=== PATIENT | female | born 1940 | race Caucasian/White ===

== ENCOUNTER → 2020-11-15 13:01 | Outpatient (BNVA) | payer MEDICARE, SELFPAY | PROVIDERS: PCP Physician Assistant Medical; Visit Provider Internal Medicine | DX: I11.0 Hypertensive heart disease with heart failure (principal); I50.32 Chronic diastolic (congestive) heart failure; I45.10 Unspecified right bundle-branch block; G47.33 Obstructive sleep apnea (adult) (pediatric) | CPT/HCPCS: 93005; 99202 ==

== ENCOUNTER → 2021-02-15 13:09 | Outpatient (REF) | payer MEDICARE, SELFPAY ==
--- NOTE | 2021-02-15 13:12 | CA_ITS ---
Transthoracic Echocardiogram Patient (Last, First, Middle): Anna Mallory M Gender: Female Date of : 1940 Age: 81 Procedure Date: 02/15/2021 Procedure Type: Transthoracic Echocardiogram Location: OP Height: 160.02 cm Weight: 88.45 kg BSA: 1.91 m2 Heart Rate: bpm BP: 130 / 70 mmHg [employer] Metal: EN Referring MD: Hemanth Herring MD Symptoms: I50.32 - Chronic diastolic (congestive) heart failure Study Quality: Fair ECG Rhythm: Sinus Conclusions: - The left ventricular systolic function is normal. The visually estimated ejection fraction is between 65-70%. - No obvious valvular pathology seen on this study. Findings Left Ventricle Normal left ventricular cavity size. There is normal left ventricular wall thickness. The left ventricular systolic function is normal. The visually estimated ejection fraction is between 65-70%. There is no evidence of regional wall motion abnormalities. E/E prime ratio is <8, consistent with normal filling pressures. Evidence suggests grade I (mild) diastolic dysfunction. Right Ventricle Normal right ventricular cavity size and systolic function. Atria Both atria are normal in size. Aortic Valve There is a normal trileaflet aortic valve. There is no aortic valve stenosis. There is no aortic valve regurgitation. Mitral Valve The mitral valve appears normal. There is trace mitral valve regurgitation. There is no mitral valve stenosis. Pulmonic Valve The pulmonic valve was not well visualized. Tricuspid Valve Normal tricuspid valve structure. There is trace tricuspid valve regurgitation. The pulmonary artery systolic pressure is normal. Great Vessels The aorta was not well visualized. The aortic annulus is normal in size. Venous The inferior vena cava is normal in size and collapses greater than 50% with inspiration. Pericardium/Pleural There is no evidence of pericardial effusion. Prior Study Comparison No prior study available for comparison. Recommendations, Care & Conclusions No obvious valvular pathology seen on this study. Measurements 2D Linear Measurements IVSd: 0.89 0.6-0.9/0.6-1.0 cm LVIDd: 4.21 3.9-5.3/4.2-5.9 cm LVIDd Index: 2.20 2.4-3.2/2.2-3.1 cm/m2 LVIDs: 3.05 2.0-3.6 cm LVPWd: 0.97 0.7-1.1 cm Ao Root: 3.10 2.1-3.5 cm LA Diam: 3.00 2.7-3.8/3.0-4.0 cm LAIDs Index: 1.57 1.5-2.3 cm/m2 LV Mass: 154.88 67-162/88-224 g LV Mass Index: 81.09 43-95/49-115 g/m2 LVOT Diam: 2.00 3.0+(-)1.3 cm 2D Systolic Function EF 4C: 69.70 >55% EF 2C: 51.10 >55% EF BiP: 60.40 >55% Mitral Valve MV Pk E: 0.50 MV PK A: 0.86 MV Decel Time: 301.00 E/A: 0.60 E'Lateral: 8.49 E'Medial: 7.83 E/E' Med: 6.40 E/E' Lat: 5.90 PHT: 88.00 MVA PHT: 2.50 Decel Bucks: 1.67 Aortic Valve AoV Pk Raymond: 1.26 AoV Mn Raymond: 0.86 AoV VTI: 0.22 AoV Pk Grad: 6.00 Aov Mn Grad: 3.00 ASTER Cont.VTI: 3.57 LVOT LVOT Pk Raymond: 1.27 LVOT Mn Raymond: 0.80 LVOT VTI: 0.25 LVOT Pk Grad: 6.00 LVOT Mn Grad: 3.00 LVOT Diam: 2.00 LVOT Area: 3.14 Diastolic Function MV Pk E: 0.50 MV Pk A: 0.86 E/A: 0.60 E'Medial: 7.83 E/E' Med: 6.40 E' Laterial: 8.49 E/E' Lat: 5.90 Right Ventricle TAPSE (mm): 2.20 TVS' Raymond: 10.40 Tricuspid Valve TR Pk Raymond: 1.76 TR Pk Grad: 12.00 RA Press: 3.00 RVSP: 15.00 Great Vessels Aorta Ao Root-2D: 3.10 2.0-3.7 cm Ao Asc: 3.20 2.1-3.4 cm Ao Arch: 3.00 Updated in Other Vendor System with Status of Final Hemanth Herring MD electronically signed on 02/16/2021 11:46:31 AM with status of Final
== END ==
LOC: HO.CARD 13:09
PROVIDERS: PCP Physician Assistant Medical; Visit Provider Internal Medicine
DX: I50.32 Chronic diastolic (congestive) heart failure (principal)
CPT/HCPCS: 93306

== ENCOUNTER → 2021-03-05 15:01 | Outpatient (BNVA) | payer MEDICARE, SELFPAY | PROVIDERS: PCP Physician Assistant Medical; Visit Provider Internal Medicine | DX: I11.0 Hypertensive heart disease with heart failure (principal); I50.32 Chronic diastolic (congestive) heart failure; I45.10 Unspecified right bundle-branch block; G47.33 Obstructive sleep apnea (adult) (pediatric) | CPT/HCPCS: 99212 ==

== ENCOUNTER 2021-06-27 19:44 | Emergency (ER) | payer MEDICARE, SELFPAY ==
--- NOTE | ~2021-06-27 | XR_ITS ---
EXAMINATION: PORTABLE CHEST 1 VIEW CLINICAL INFORMATION: dyspnea . COMPARISON: 11/03/2016 CT scan. TECHNIQUE: Portable frontal view of the chest was obtained. FINDINGS: The lungs are well expanded. Mild peribronchial cuffing bilaterally but no superimposed focal infiltrate, effusion, edema, or pneumothorax. Cardiac and mediastinal silhouettes are within normal limits for technique. No acute bony abnormality seen. Degenerative changes in the right greater than left shoulders degenerative changes in the spine. XR/XR chest 1V IMPRESSION: Mild peribronchial cuffing could be seen with underlying reactive or small airways disease but no focal airspace process noted otherwise.
--- NOTE | 2021-06-27 21:11 | ECG_ITS ---
Test Reason : BRONCHITIS Blood Pressure : / mmHG Vent. Rate : 097 BPM Atrial Rate : 097 BPM P-R Int : 194 ms QRS Dur : 134 ms QT Int : 410 ms P-R-T Axes : 040 035 011 degrees QTc Int : 520 ms Normal sinus rhythm Right bundle branch block Abnormal ECG When compared with ECG of 02-NOV-2016 23:42, Right bundle branch block is now Present Referred By: Generic ED Physician Electronically Signed By:Cayetano Pfeiffer
[2021-06-27 21:15] VITALS: BP 152/93; PULSE 106; RESP 19; TEMP 36.4; O2SAT 98; BMI 32.5
[2021-06-27 22:22] LABS: MANUAL DIFF FLAG NO
[2021-06-27 22:26] LABS: Basophils Percent Auto 0.6 % (0-2); Eosinophils Absolute Auto 0.3 X10*3/uL (0.0-0.4); Hemoglobin 13.2 g/dl (12.0-16.0); Imm Gran Abs Auto 0.02 X10*3/uL (0.00-0.03); Imm Gran Pct Auto 0.3 % (0.0-0.4); Lymphocytes Absolute Auto 1.1 X10*3/uL (1.2-4.9); Lymphocytes Percent Auto 15.3 % (20-40); Mean Corpuscular HGB Conc 32.2 g/dl (31.0-35.0); Mean Corpuscular Hemoglobin 30.8 pg (27.0-33.0); Mean Corpuscular Volume 95.8 fL (80.0-98.0); Mean Platelet Volume 11.6 fL (9.4-12.3); Monocytes Absolute Auto 0.7 X10*3/uL (0.1-1.2); Monocytes Percent Auto 8.9 % (2-11); Neutrophils Absolute Auto 5.2 x10*3/uL (2.0-8.3); Neutrophils Percent Auto 70.9 % (45-73); Platelet Count 206 X10*3/uL (160-400); Red Blood Count 4.28 X10*6/uL (4.20-5.50); Red Cell Distribution Width 13.1 % (11.0-16.0); White Blood Count 7.3 X10*3/uL (4.8-10.8)
--- NOTE | 2021-06-27 22:30 | ED.SOB ---
HPI - SOB/Dyspnea General Chief Complaint: Dyspnea Stated Complaint: bronchitis Time Seen by Provider: 06/27/21 22:26 Source: patient Mode of arrival: ambulatory Limitations: no limitations History of Present Illness HPI Narrative: 81-year-old female presents with complaints of a brief episode of shortness of breath. Patient states that the feeling is consistent with chronic bronchitis. At this time she states that she feels well, and that the symptoms have resolved. MD elicited complaint: shortness of breath Pertinent past history: congestive heart failure Onset (ago): minute(s) (Several minutes earlier today) Timing: now resolved Severity: mild Exacerbating factors: nothing Relieving factors: nothing Known history of: congestive heart failure Associated symptoms: denies other symptoms Treatment prior to arrival: none Related Data Home Medications Medication Instructions Recorded Confirmed amlodipine 5 mg tablet 5 mg PO DAILY tab 11/15/20 03/05/21 duloxetine 60 mg capsule,delayed 60 mg PO DAILY cap 11/15/20 03/05/21 release furosemide 40 mg tablet 40 mg PO DAILY tab 11/15/20 03/05/21 lisinopril 20 mg tablet 20 mg PO DAILY tab 11/15/20 03/05/21 pantoprazole 40 mg tablet,delayed 40 mg PO DAILY tab 11/15/20 03/05/21 release potassium chloride 20 mEq 20 meq PO DAILY tab 11/15/20 03/05/21 tablet,extended release(part/cryst) pravastatin 40 mg tablet 40 mg PO DAILY tab 11/15/20 03/05/21 Previous Rx's Medication Instructions Recorded doxycycline monohydrate 100 mg 100 mg PO Q12H 7 Days #14 cap 06/28/21 capsule Allergies Allergy/AdvReac Type Severity Reaction Status Date / Time latex [Latex] Allergy Mild RASH Verified 06/27/21 21:31 celecoxib [From CELEBREX] Allergy Unknown RASH Verified 06/27/21 21:31 Garden And Derivatives Allergy Unknown RASH ON Verified 06/27/21 21:31 FACE egg Allergy Unknown RASH FROM Verified 06/27/21 21:31 EGG WHITES gabapentin [GABAPENTIN] Allergy Unknown RASH Verified 06/27/21 21:31 lactose [LACTOSE] Allergy Unknown INTOLERANT Verified 06/27/21 21:31 peas Allergy Unknown FROM Verified 06/27/21 21:31 TESTING RESULT vancomycin [VANCOMYCIN] Allergy Unknown UNKNOWN Verified 06/27/21 21:31 hydrocodone [HYDROCODONE] AdvReac Unknown ABDOMINAL Verified 06/27/21 21:31 PAIN saccharin [SACCHARIN] AdvReac Unknown HEADACHE Verified 06/27/21 21:31 JEWELRY Allergy Unknown RASH Uncoded 06/27/21 21:31 PLASTIC Allergy Unknown RASH Uncoded 06/27/21 21:31 Review of Systems Review of Systems: Constitutional: No Fever, No Chills ENT/Mouth: No sore throat, No Rhinorrhea, No Swallowing Difficulty Eyes: No Eye Pain, No Swelling, No Redness Cardiovascular: No Chest Pain, positive SOB, No Orthopnea, positive Edema Respiratory: No Cough, No Sputum, No Wheezing, positive dyspnea Gastrointestinal: No Nausea, No Vomiting, No Diarrhea, No abdominal Pain, No Hematochezia, No Melena Genitourinary: No Dysuria, No Urinary Frequency, No Hematuria Musculoskeletal: No joint pain, No Myalgias Skin: No Skin Lesions, No rash Neuro: No Weakness, No Numbness, No Dizziness, No Headache Psych: No Anxiety/Panic, No Depression Heme/Lymph: No Bruising, No Lymphadenopathy Endocrine: No Polyuria, No Polydipsia Yes all other systems are reviewed and are negative [facility] Past Medical History Attestation statement: The following information was validated with the patient. Source: old records reviewed Medical History Chronic heart failure with preserved ejection fraction (HFpEF) Essential hypertension ZAK (obstructive sleep apnea) RBBB Surgical History No pertinent past surgical history Family History Family History Father No problems noted. Mother No problems noted. Social History Social History Patient Tobacco Use Status: Never used Tobacco Advance Directives: No Physical Exam Vital Signs: Vital Signs: Last Vital Signs Temp 98.4 F 06/28/21 01:45 Pulse 81 06/28/21 01:45 Resp 14 06/28/21 01:45 BP 146/81 H 06/28/21 01:45 Pulse Ox 97 06/28/21 01:45 BMI result Body Mass Index 32.5 Appearance: Alert. Oriented X3. No acute distress. Eyes: Pupils equal, round and reactive to light. ENT: Pharynx normal. Neck: Normal inspection. Neck supple. CVS: Tachycardic heart rate and rhythm. Pulses normal. Respiratory: No respiratory distress. Breath sounds normal. Abdomen: Soft and nontender. Skin: Skin warm and dry. Normal skin color. Normal skin turgor. Extremities: +2 pitting bilateral lower extremity edema. Gait well-balanced well coordinated. Neuro: No motor deficit. No sensory deficit. Cranial nerves 2-12 intact. Course Course Course Narrative: 81-year-old presents with an episode of shortness of breath, felt like she had severe congestion and had a difficult time breathing. She does not report any sick contacts or any other concerning symptoms. States that her symptoms have resolved during her prolonged time in the waiting room. EKG noted prolonged QTc interval while patient was in the waiting room of 520. Prior EKGs compared, reviewed by Dr. Blackwell. No indication of ischemic event at this time. Patient is afebrile, asymptomatic at this time. Will give magnesium, chest x-ray shows bronchial cupping most likely consistent bronchitis. Urinalysis pending. 01:30 urinalysis is negative. Will treat for bronchitis with doxycycline.Patient verbalized understanding of and agrees to plan of care to discharge home. Verbalized understanding of signs and symptoms indicating need for emergent intervention MDM - SOB/Dyspnea Differential Diagnosis Differential diagnosis: Likely acute exacerbation of chronic obstructive airways disease, congestive heart failure, pneumonia, asthma with exacerbation and pleural effusion Medical Records Attestation: I reviewed the patient's medical records. Lab Data Attestation: I reviewed the patient's lab results. Result diagrams: 06/27/21 22:10 06/27/21 22:10 Labs: Lab Results 06/27/21 06/27/21 06/27/21 Range/Units 22:10 22:10 22:10 WBC 7.3 (4.8-10.8) X10*3/uL RBC 4.28 (4.20-5.50) X10*6/uL Hgb 13.2 (12.0-16.0) g/dl Hct 41.0 (37.0-47.0) % MCV 95.8 (80.0-98.0) fL MCH 30.8 (27.0-33.0) pg MCHC 32.2 (31.0-35.0) g/dl RDW 13.1 (11.0-16.0) % Plt Count 206 (160-400) X10*3/uL MPV 11.6 (9.4-12.3) fL Immature Gran % (Auto) 0.3 (0.0-0.4) % Neut % (Auto) 70.9 (45-73) % Lymph % (Auto) 15.3 L (20-40) % [place] % (Auto) 8.9 (2-11) % Eos % (Auto) 4.0 (0-4) % Baso % (Auto) 0.6 (0-2) % Lymph # (Auto) 1.1 L (1.2-4.9) X10*3/uL [place] # (Auto) 0.7 (0.1-1.2) X10*3/uL Eos # (Auto) 0.3 (0.0-0.4) X10*3/uL Baso # (Auto) 0.0 (0.0-0.2) X10*3/uL Abs Immat Gran (auto) 0.02 (0.00-0.03) X10*3/uL Absolute Neuts (auto) 5.2 (2.0-8.3) x10*3/uL Absolute Nucleated RBC 0.000 (0.0-0.012) X10*3/uL Nucleated RBC % (auto) 0.0 (0.0-0.2) /100WBC Sodium 142 (135-145) mmol/L Potassium 3.9 (3.3-5.1) mmol/L Chloride 104 (96-108) mmol/L Carbon Dioxide 29 (22-29) mmol/L Anion Gap 13 (12-20) BUN 15 (9-16) mg/dL Creatinine 1.29 (0.5-1.4) mg/dL Estim Creat Clear Calc 41.7 Estimated GFR 40 Random Glucose 101 (60-115) mg/dL Lactic Acid (0.5-2.0) mmol/L Calcium 9.5 (8.4-10.2) mg/dL Magnesium 2.3 (1.6-2.6) mg/dL Troponin I High Sens 4.3 (<3.5-17.0) ng/L B-Natriuretic Peptide 46 (<100) pg/mL Urine Color Urine Appearance Urine pH (5.0-8.0) Ur Specific [place] (1.005-1.025) Urine Protein (NEG-TRACE) MG/DL Urine Glucose (UA) (NEG) MG/DL Urine Ketones (NEG) MG/DL Urine Blood (NEG) Urine Nitrite (NEG) Ur Leukocyte Esterase (NEG) 06/27/21 06/28/21 Range/Units 23:11 01:07 WBC (4.8-10.8) X10*3/uL RBC (4.20-5.50) X10*6/uL Hgb (12.0-16.0) g/dl Hct (37.0-47.0) % MCV (80.0-98.0) fL MCH (27.0-33.0) pg MCHC (31.0-35.0) g/dl RDW (11.0-16.0) % Plt Count (160-400) X10*3/uL MPV (9.4-12.3) fL Immature Gran % (Auto) (0.0-0.4) % Neut % (Auto) (45-73) % Lymph % (Auto) (20-40) % [place] % (Auto) (2-11) % Eos % (Auto) (0-4) % Baso % (Auto) (0-2) % Lymph # (Auto) (1.2-4.9) X10*3/uL [place] # (Auto) (0.1-1.2) X10*3/uL Eos # (Auto) (0.0-0.4) X10*3/uL Baso # (Auto) (0.0-0.2) X10*3/uL Abs Immat Gran (auto) (0.00-0.03) X10*3/uL Absolute Neuts (auto) (2.0-8.3) x10*3/uL Absolute Nucleated RBC (0.0-0.012) X10*3/uL Nucleated RBC % (auto) (0.0-0.2) /100WBC Sodium (135-145) mmol/L Potassium (3.3-5.1) mmol/L Chloride (96-108) mmol/L Carbon Dioxide (22-29) mmol/L Anion Gap (12-20) BUN (9-16) mg/dL Creatinine (0.5-1.4) mg/dL Estim Creat Clear Calc Estimated GFR Random Glucose (60-115) mg/dL Lactic Acid 0.6 (0.5-2.0) mmol/L Calcium (8.4-10.2) mg/dL Magnesium (1.6-2.6) mg/dL Troponin I High Sens (<3.5-17.0) ng/L B-Natriuretic Peptide (<100) pg/mL Urine Color YELLOW Urine Appearance HAZY Urine pH 6.5 (5.0-8.0) Ur Specific [place] 1.015 (1.005-1.025) Urine Protein NEG (NEG-TRACE) MG/DL Urine Glucose (UA) NEG (NEG) MG/DL Urine Ketones NEG (NEG) MG/DL Urine Blood NEG (NEG) Urine Nitrite NEG (NEG) Ur Leukocyte Esterase NEG (NEG) Imaging Data Chest x-ray: Attestation: I personally reviewed and interpreted this imaging study as follows: Radiologist's impression: EXAMINATION: PORTABLE CHEST 1 VIEW CLINICAL INFORMATION: dyspnea . COMPARISON: 11/03/2016 CT scan. TECHNIQUE: Portable frontal view of the chest was obtained. FINDINGS: The lungs are well expanded. Mild peribronchial cuffing bilaterally but no superimposed focal infiltrate, effusion, edema, or pneumothorax. Cardiac and mediastinal silhouettes are within normal limits for technique. No acute bony abnormality seen. Degenerative changes in the right greater than left shoulders degenerative changes in the spine. XR/XR chest 1V IMPRESSION: Mild peribronchial cuffing could be seen with underlying reactive or small airways disease but no focal airspace process noted otherwise. ? ECG Data Attestation: I personally reviewed and interpreted this ECG as follows: ECG interpretation date: 06/27/21 ECG interpretation time: 21:55 Prior ECG tracings: available for review Interpretation: Vent. rate 97 BPM MT interval 194 ms QRS duration 134 ms QT/QTc 410/520 ms P-R-T axes 40 35 11 Normal sinus rhythm Right bundle branch block Abnormal ECG When compared with ECG of 02-NOV-2016 23:42, Right bundle branch block is now Present Scores Heart Score History: -0- slightly suspicious ECG: -1- non specific repolarization disturbance Age: -2- > or = 65 Risk factory: -1- 1 or 2 risk factors Troponin: -0- < or = normal limit Score: 4 Risk: 16.6% Wells PE Heart rate > 100 p/min: 1.5 Score: 1.5 2-tier Risk: unlikely risk (5%) 3-tier Risk: low risk (3.4%) Discharge Plan Discharge Clinical Impression: Bronchitis Patient Disposition: Home, Self-Care Instructions: Acute Bronchitis (ED) Additional Instructions: You were evaluated for shortness of breath. X-rays indicate bronchitis. Please take doxycycline 100 mg twice a day for the next 7 days. Thank you for choosing this emergency department for evaluation. Please follow-up with primary care physician as needed. Return to the emergency department for any new, concerning, or worsening symptoms. Prescriptions: New doxycycline monohydrate 100 mg capsule 100 mg PO Q12H 7 Days Qty: 14 0RF No Action potassium chloride 20 mEq tablet,ER particles/crystals 20 meq PO DAILY 0RF furosemide 40 mg tablet 40 mg PO DAILY 0RF duloxetine 60 mg capsule,delayed release(DR/EC) 60 mg PO DAILY 0RF pantoprazole 40 mg tablet,delayed release (DR/EC) 40 mg PO DAILY 0RF amlodipine 5 mg tablet 5 mg PO DAILY 0RF pravastatin 40 mg tablet 40 mg PO DAILY 0RF lisinopril 20 mg tablet 20 mg PO DAILY 0RF Interventions: ED Discharge Assessment Last Done: 06/28/21 01:47 Discharge Date/Time: 06/28/21 01:49
[2021-06-27 22:35] VITALS: BP 174/98; PULSE 102; RESP 15; O2SAT 97
[2021-06-27 22:43] LABS: Anion Gap 13 (12-20); Blood Urea Nitrogen 15 mg/dL (9-16); Calcium 9.5 mg/dL (8.4-10.2); Carbon Dioxide 29 mmol/L (22-29); Chloride 104 mmol/L (96-108); Creatinine Clr Calc Pharmacy 41.7; Estimated Glomerular Filt Rate 40; Glucose Random 101 mg/dL (60-115); Magnesium 2.3 mg/dL (1.6-2.6); Potassium 3.9 mmol/L (3.3-5.1); Sodium 142 mmol/L (135-145)
[2021-06-27 23:21] LABS: B Type Natriuretic Peptide 46 pg/mL (<100); Troponin-I High Sensitivity 4.3 ng/L (<3.5-17.0)
[2021-06-27 23:27] LABS: Lactic Acid 0.6 mmol/L (0.5-2.0)
[2021-06-27] MEDS: Magnesium Sulfate/H2O 2 GM/50 ML PIGGYBACK IV (23:28)
[2021-06-28] MEDS: Doxycycline Hyclate 100 MG in 0.9 % Sodium Chloride 250 ML 166.67 MG IV (00:09)
[2021-06-28 00:14] VITALS: BP 150/73; PULSE 95; RESP 12; O2SAT 96
[2021-06-28 01:27] LABS: Appearance Urine HAZY; Color Urine YELLOW; Glucose Urine UA NEG (NEG); Leukocyte Esterase Urine NEG (NEG); Nitrite Urine NEG (NEG); PH 6.5 (5.0-8.0); Specific Gravity - Urine 1.015 (1.005-1.025); Urine Blood NEG (NEG); Urine Ketones NEG (NEG); Urine Protein NEG (NEG-TRACE)
[2021-06-28 01:45] VITALS: BP 146/81; PULSE 81; RESP 14; TEMP 36.9; O2SAT 97
== END 2021-06-28 01:49 | disposition home or self-care (01) ==
PROVIDERS: Nurse Practitioner Family; Emergency Provider Student in an Organized Health Care Education/Training Program
DX: J40 Bronchitis, not specified as acute or chronic (principal); R06.00 Dyspnea, unspecified; R06.02 Shortness of breath; Z79.899 Other long term (current) drug therapy; Z20.822 Contact with and (suspected) exposure to COVID-19
CPT/HCPCS: 36415; 71045; 80048; 81003; 83605; 83735; 83880; 84484; 85025; 87040; 93005; 96365; 96366; 96375; 99284; J3475

== ENCOUNTER → 2022-03-06 15:16 | Outpatient (BNVA) | payer MEDICARE, SELFPAY | PROVIDERS: Visit Provider Internal Medicine | DX: I11.0 Hypertensive heart disease with heart failure (principal); I50.32 Chronic diastolic (congestive) heart failure; I45.10 Unspecified right bundle-branch block; G47.33 Obstructive sleep apnea (adult) (pediatric); Z79.899 Other long term (current) drug therapy | CPT/HCPCS: 93005; 99212 ==

== ENCOUNTER 2022-08-17 16:36 | Emergency (ER) | payer MEDICARE, SELFPAY ==
--- NOTE | ~2022-08-17 | XR_ITS ---
Examination: XR knee LT 2V, XR knee RT 2V, XR hip RT w PEL1V Indication: fall, tenderness Comparison: No pertinent prior studies are currently available for comparison. Technique: Frontal view the pelvis with coned frontal and lateral views of the right hip with 2 views of the right knee and 2 views of the left knee. Findings: Pelvis/right hip: Patient is status post bilateral total hip arthroplasties. Hardware appears to be intact with no evidence for periprosthetic fracture or obvious loosening. Degenerative changes in the pubic symphysis. Prominent vascular calcification. Right knee: Small joint effusion. Bones are normal anatomic alignment with no acute fracture or dislocation. The patient is status post right total knee arthroplasty with no evidence for periprosthetic fracture or hardware failure. Left knee: Patient is status post left total knee arthroplasty. No evidence for hardware failure or periprosthetic fracture. Small joint effusion suspected. XR/XR knee RT 2V Impression: Chronic appearing and postoperative changes as described. I do not appreciate any acute fracture or dislocation.
--- NOTE | ~2022-08-17 | XR_ITS ---
Examination: XR knee LT 2V, XR knee RT 2V, XR hip RT w PEL1V Indication: fall, tenderness Comparison: No pertinent prior studies are currently available for comparison. Technique: Frontal view the pelvis with coned frontal and lateral views of the right hip with 2 views of the right knee and 2 views of the left knee. Findings: Pelvis/right hip: Patient is status post bilateral total hip arthroplasties. Hardware appears to be intact with no evidence for periprosthetic fracture or obvious loosening. Degenerative changes in the pubic symphysis. Prominent vascular calcification. Right knee: Small joint effusion. Bones are normal anatomic alignment with no acute fracture or dislocation. The patient is status post right total knee arthroplasty with no evidence for periprosthetic fracture or hardware failure. Left knee: Patient is status post left total knee arthroplasty. No evidence for hardware failure or periprosthetic fracture. Small joint effusion suspected. XR/XR hip RT w PEL1V Impression: Chronic appearing and postoperative changes as described. I do not appreciate any acute fracture or dislocation.
--- NOTE | ~2022-08-17 | XR_ITS ---
Examination: XR knee LT 2V, XR knee RT 2V, XR hip RT w PEL1V Indication: fall, tenderness Comparison: No pertinent prior studies are currently available for comparison. Technique: Frontal view the pelvis with coned frontal and lateral views of the right hip with 2 views of the right knee and 2 views of the left knee. Findings: Pelvis/right hip: Patient is status post bilateral total hip arthroplasties. Hardware appears to be intact with no evidence for periprosthetic fracture or obvious loosening. Degenerative changes in the pubic symphysis. Prominent vascular calcification. Right knee: Small joint effusion. Bones are normal anatomic alignment with no acute fracture or dislocation. The patient is status post right total knee arthroplasty with no evidence for periprosthetic fracture or hardware failure. Left knee: Patient is status post left total knee arthroplasty. No evidence for hardware failure or periprosthetic fracture. Small joint effusion suspected. XR/XR knee LT 2V Impression: Chronic appearing and postoperative changes as described. I do not appreciate any acute fracture or dislocation.
--- NOTE | ~2022-08-17 | CT_ITS ---
EXAMINATION: CT HEAD WITHOUT CONTRAST CT CERVICAL SPINE WITHOUT CONTRAST CLINICAL INFORMATION: Status post fall. Head strike. COMPARISON: None TECHNIQUE: Contiguous axial images are obtained from the skull base to the vertex without intravenous contrast administration. Multidetector volumetric CT imaging of the cervical spine is acquired without intravenous contrast administration. Postprocessing is performed at a dedicated workstation. Multiplanar reformatted images are submitted. This CT scan was performed using dose optimization techniques as appropriate to a performed exam including the following: *Automated exposure control *Adjustment of mA and/or kV according to patient size (this includes techniques or standardized protocols for targeted exams were dose is matched to indication/reason for exam; i.e. extremities or head) *Use of iterative reconstruction technique. DLP: 1358 mGy-cm. FINDINGS: CT HEAD: Subgaleal hematoma is noted over the high left anterior lateral frontal calvarium. There is no evidence of acute intracranial hemorrhage, midline shift, mass effect, acute territorial edematous infarction or abnormal extra-axial fluid collection. Moderate cerebral volume loss is noted with proportionate dilatation of the ventricles and cortical sulci. Bilateral periventricular moderate patchy white matter low-attenuation changes are seen, likely of chronic microangiopathy. Osseous calvarium is intact. The sinuses are well-aerated. Bilateral mastoid air cells and middle ear cavities are well-aerated. The patient is status post bilateral lens extraction. Calcific atherosclerosis of the internal carotid arteries. CT CERVICAL SPINE: The vertebral body heights are maintained. Atlantoaxial and atlantooccipital alignments are maintained. Posterior elements are intact and in normal alignment. There is minimal grade 1 anterolisthesis of C2 over C3 and of C3 over C4. Minimal grade 1 retrolisthesis of C5 over C6. Minimal grade 1 anterolisthesis of C7 over T1. Severe disc space narrowing is noted at C4-C5, C5-C6 and C6-C7 with endplate marginal osteophytes. Moderate to severe bilateral neural foraminal stenosis is noted from C4 to C7. Moderate disc space narrowing at C3-C4. No evidence of tight central canal stenosis. Mild central canal stenosis from C5 to C7. The airway is patent. There is no evidence of prevertebral soft tissue swelling. No focal thyroid nodule. Nonspecific mild groundglass changes at the lung apices. CT/CT cervical spine wo IV con IMPRESSION: 1. No evidence of acute intracranial abnormality. Specifically, there is no evidence of acute intracranial hemorrhage or acute fracture of the osseous calvarium. 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 Left anterior lateral frontal calvarium subgaleal hematoma. 2. No evidence of acute fracture or traumatic subluxation in the cervical spine. Cervical spondylosis.
[2022-08-17 16:54] VITALS: BP 137/76; BP 176/92; PULSE 103; PULSE 84; RESP 20; TEMP 36.6; O2SAT 96; O2SAT 98; BMI 41.9
--- NOTE | 2022-08-17 17:03 | ED.GENADULT ---
HPI - General Adult General Chief complaint: Fall Stated complaint: L FOREHEAD BRUISE S/P TRIP/FALL PER EMS Time Seen by Provider: 08/17/22 17:02 Source: patient and EMS Mode of arrival: EMS Limitations: no limitations History of Present Illness HPI narrative: Patient is an 82-year-old female with history of ZAK, RBBB, HF with preserved ejection fraction, HTN presenting with head and right hip pain as well as bilateral knee pain after a fall from standing. Patient was home alone, states that she was feeling nauseous, so went into the kitchen to eat cereal. She states as she turned to leave the room my body turned but my legs didn't move. She fell to her knees, then hit head on the hardwood floor. She does not believe she lost consciousness, remembers all events. She reports tenderness to forehead, continued nausea. Denies neck or back pain, is in a c-collar from EMS. Reports right hip pain and bilateral knee pain both worse with palpation. Denies abdominal pain, vomiting, diarrhea or constipation. Reports that she otherwise felt fine this morning prior to fall. MD complaint: head injury Onset (ago): hour(s) Location: head and lower extremity Severity: severe Pain Consistency: intermittent Relieving factors: rest Exacerbating factors: movement Associated symptoms: nausea/vomiting (reports nausea, denies vomiting) Treatments prior to arrival: none Related Data Home Medications Medication Instructions Recorded Confirmed amlodipine 5 mg tablet 5 mg PO DAILY 11/15/20 03/06/22 duloxetine 60 mg capsule,delayed 60 mg PO DAILY 11/15/20 03/06/22 release lisinopril 20 mg tablet 20 mg PO DAILY 11/15/20 03/06/22 pantoprazole 40 mg tablet,delayed 40 mg PO DAILY 11/15/20 03/06/22 release potassium chloride 20 mEq 20 meq PO DAILY 11/15/20 03/06/22 tablet,extended release(part/cryst) pravastatin 40 mg tablet 40 mg PO DAILY 11/15/20 03/06/22 ciclopirox 8 % topical solution topical 03/06/22 03/06/22 nystatin 100,000 unit/gram topical topical 03/06/22 03/06/22 powder triamcinolone acetonide 0.1 % topical 03/06/22 03/06/22 topical ointment Previous Rx's Medication Instructions Recorded furosemide 40 mg tablet 40 mg PO DAILY 90 days #90 tabs 03/06/22 Allergies Allergy/AdvReac Type Severity Reaction Status Date / Time latex [Latex] Allergy Mild RASH Verified 03/06/22 15:23 celecoxib [From CELEBREX] Allergy Unknown RASH Verified 03/06/22 15:23 [place] And Derivatives Allergy Unknown RASH ON Verified 03/06/22 15:23 FACE egg Allergy Unknown RASH FROM Verified 03/06/22 15:23 EGG WHITES gabapentin [GABAPENTIN] Allergy Unknown RASH Verified 03/06/22 15:23 lactose [LACTOSE] Allergy Unknown INTOLERANT Verified 03/06/22 15:23 peas Allergy Unknown FROM Verified 03/06/22 15:23 TESTING RESULT vancomycin [VANCOMYCIN] Allergy Unknown UNKNOWN Verified 03/06/22 15:23 hydrocodone [HYDROCODONE] AdvReac Unknown ABDOMINAL Verified 03/06/22 15:23 PAIN saccharin [SACCHARIN] AdvReac Unknown HEADACHE Verified 03/06/22 15:23 JEWELRY Allergy Unknown RASH Uncoded 03/06/22 15:23 PLASTIC Allergy Unknown RASH Uncoded 03/06/22 15:23 Review of Systems Review of Systems: As per HPI Yes all other systems are reviewed and are negative Constitutional: Constitutional: Reports as per HPI PMFSH Past Medical History Medical History Chronic heart failure with preserved ejection fraction (HFpEF) Essential hypertension ZAK (obstructive sleep apnea) RBBB Surgical History No pertinent past surgical history Family History Family History Father No problems noted. Mother No problems noted. Social History Social History (Updated 03/06/22 @ 15:26 by JOSHUA Millan) Alcohol intake: never Patient Tobacco Use Status: Never used Tobacco Smoked in Last 30 Days: No Use of substances other than those prescribed or required for medical reasons: No Advance Directives: No Advance Directives Information Provided: No Physical Exam ED Vital Signs: Vital Signs - 24 hr 08/17/22 16:54 08/17/22 20:34 Temperature 97.8 F Pulse Rate 84 90 Respiratory Rate 20 16 Blood Pressure 176/92 H Pulse Oximetry 96 98 Oxygen Delivery Method Room Air Room Air BMI result Body Mass Index 41.9 Vital signs have been reviewed and appear to be correct. Blood pressure elevated. Heart rate normal. Respiratory rate normal. Temperature normal. Oxygen saturation normal. Const General: cooperative, healthy appearing and no acute distress Orientation/consciousness: oriented to person, oriented to place, oriented to time and patient oriented x3 Limitations: no limitations HENMT Head: Yes No palpable skull fracture present, Yes normocephalic, No Hinton's sign, Yes contusion (left forehead), Yes hematoma, No raccoon eyes and No periorbital ecchymosis Head images: 1. contusion/hematoma Ears: external ears normal and TM's normal bilaterally General nose exam: Normal external nose present Face and sinus: Yes face symmetric Mouth: oropharynx normal and moist mucous membranes Throat: Yes posterior oropharynx normal and Yes uvula midline Eyes Pupils: Equal, round and reactive pupils present EOM: EOMs intact bilaterally Neck Neck: Yes normal visual inspection Resp Effort & Inspection: normal respiratory effort and able to speak in complete sentences Auscultation: clear to auscultation bilaterally Cardio Rate: regular rate Rhythm: regular rhythm Heart sounds: S1 normal heart sound present and S2 normal heart sound present GI Palpation (GI): Soft to palpation and nontender Auscultation: normoactive bowel sounds General: Yes no CVA tenderness Back/Spine/Pelvis Back: no CVA tenderness Cervical Spine: collar present Pelvis: pain with anterior-posterior compression and pain with lateral compression Skin General skin exam: elasticity normal and turgor normal Neuro General: oriented to person, oriented to place, oriented to time, patient oriented x3, moves all extremities, no focal motor deficits and CN's II-XI intact bilaterally Cranial nerves: Yes Equal, round and reactive pupils present Cognition (Neuro): normal cognition Extrem General: Yes no pedal edema and Yes no calf tenderness Right upper extremity: normal to inspection and full ROM Left upper extremity: full ROM and elbow/forearm Details: normal ROM and ecchymosis (full ROM) elbow lateral Right lower extremity: hip/thigh Details: tenderness Location: of the hip Location: laterally, knee Details: tenderness Location: of the patella and foot Details: normal capillary refill and normal to inspection; ROM limited Left lower extremity: knee Details: tenderness Location: of the patella and foot Details: normal capillary refill and normal to inspection Psych Mental Status: mental status grossly normal Affect: normal affect Thought process: Normal thought process present Course Course Course Narrative: 17:43 New 1st degree block on EKG as compared to prior from June of 2021. 18:27 Potassium noted to be 3.0, will replace PO. 19:05 Sign out to CHARO Paula pending results of imaging. Reevaluation(s) Reevaluation #1: Patient's x-ray is without acute findings. Patient and family requesting discharge at this time. Time: 21:20 Medications Administered Discontinued Medications Generic Name Dose Route Start Last Admin Trade Name [place] PRN Reason Stop Dose Admin Acetaminophen 650 mg 08/17/22 17:19 08/17/22 18:29 Acetaminophen 325 Mg Tablet PO 08/17/22 17:20 650 mg ONCE ONE Administration Ondansetron HCl 4 mg 08/17/22 17:11 08/17/22 18:30 Ondansetron Odt 4 Mg Tab.Rapdis TRANSLINGU 08/17/22 17:12 4 mg ONCE ONE Administration Potassium Chloride 40 meq 08/17/22 18:26 08/17/22 18:41 Potassium Chloride Er 20 Meq Tab.Er.Prt PO 08/17/22 18:27 40 meq ONCE ONE Administration Medical Decision Making Medical Decision Making MDM Narrative: Patient is an 82-year-old female with history of ZAK, RBBB, HF with preserved ejection fraction, HTN presenting with head and right hip pain as well as bilateral knee pain after a fall from standing. On exam patient is awake, A+Ox3, normal neurological exam without focal deficits, contusion/hematoma to left forehead, no hemotympanus, no septal hematoma, LS CTA, abd snt, tenderness to palpation of right hip, bilateral knees. Patient is not anticoagulated. Concern for ICH, skull fracture, cervical fracture, hip fracture, patellar fractures or contusions. Plan: EKG, basic labs, CT head and neck, x-ray hip and knees Please refer to course for remaining clinical decision making. Differential Diagnosis Differential Diagnoses: The differential diagnosis associated with the presentation includes As above. Lab Data 08/17/22 17:41 08/17/22 17:41 Labs: Lab Results 08/17/22 08/17/22 08/17/22 Range/Units 17:41 17:41 17:41 WBC 7.4 (4.8-10.8) X10*3/uL RBC 4.31 (4.20-5.50) X10*6/uL Hgb 13.5 (12.0-16.0) g/dl Hct 41.0 (37.0-47.0) % MCV 95.1 (80.0-98.0) fL MCH 31.3 (27.0-33.0) pg MCHC 32.9 (31.0-35.0) g/dl RDW 12.2 (11.0-16.0) % Plt Count 200 (160-400) X10*3/uL MPV 11.8 (9.4-12.3) fL Immature Gran % (Auto) 0.5 H (0.0-0.4) % Neut % (Auto) 75.9 H (45-73) % Lymph % (Auto) 11.7 L (20-40) % [place] % (Auto) 7.1 (2-11) % Eos % (Auto) 4.4 H (0-4) % Baso % (Auto) 0.4 (0-2) % Lymph # (Auto) 0.9 L (1.2-4.9) X10*3/uL [place] # (Auto) 0.5 (0.1-1.2) X10*3/uL Eos # (Auto) 0.3 (0.0-0.4) X10*3/uL Baso # (Auto) 0.0 (0.0-0.2) X10*3/uL Abs Immat Gran (auto) 0.04 H (0.00-0.03) X10*3/uL Absolute Neuts (auto) 5.6 (2.0-8.3) x10*3/uL Absolute Nucleated RBC 0.000 (0.0-0.012) X10*3/uL Nucleated RBC % (auto) 0.0 (0.0-0.2) /100WBC Sodium 145 (135-145) mmol/L Potassium 3.0 L D (3.3-5.1) mmol/L Chloride 105 (96-108) mmol/L Carbon Dioxide 30 H (22-29) mmol/L Anion Gap 13 (12-20) BUN 9 (9-16) mg/dL Creatinine 0.88 (0.5-1.4) mg/dL Estim Creat Clear Calc 57.6 Estimated GFR > 60 Random Glucose 127 H (60-115) mg/dL Calcium 9.4 (8.4-10.2) mg/dL Troponin I High Sens < 2.7 (<3.5-17.0) ng/L Independent Interpretation I performed an independent interpretation of an: EKG Interpretation: EKG: sinus rhythm with first degree A-V block and RBBB, rate 88bpm, prolonged QTc, A-V block is new as compared to prior EKG from June of 2021 Discharge Plan Discharge Clinical Impression: Fall Patient Disposition: Home, Self-Care Instructions: Fall Prevention (ED) Additional Instructions: Your CT scans and x-rays did not show any evidence of traumatic injuries. Your workup in the ER was reassuring You may use Tylenol for any further pain Follow-up with your primary doctor Prescriptions: No Action potassium chloride 20 mEq tablet,ER particles/crystals 20 meq PO DAILY duloxetine 60 mg capsule,delayed release(DR/EC) 60 mg PO DAILY pantoprazole 40 mg tablet,delayed release (DR/EC) 40 mg PO DAILY amlodipine 5 mg tablet 5 mg PO DAILY pravastatin 40 mg tablet 40 mg PO DAILY lisinopril 20 mg tablet 20 mg PO DAILY triamcinolone acetonide 0.1 % ointment topical nystatin 100,000 unit/gram powder topical ciclopirox 8 % solution topical furosemide 40 mg tablet 40 mg PO DAILY 90 Days Qty: 90 3RF
--- NOTE | 2022-08-17 17:14 | ECG_ITS ---
Test Reason : FALL Blood Pressure : / mmHG Vent. Rate : 088 BPM Atrial Rate : 088 BPM P-R Int : 210 ms QRS Dur : 162 ms QT Int : 462 ms P-R-T Axes : 047 016 015 degrees QTc Int : 559 ms Sinus rhythm with 1st degree A-V block Right bundle branch block Abnormal ECG When compared with ECG of 27-JUN-2021 21:55, QRS duration has increased Referred By: Cate Murray Electronically Signed By:MARC BACH MD
[2022-08-17 17:50] LABS: MANUAL DIFF FLAG NO
[2022-08-17 18:06] LABS: Anion Gap 13 (12-20); Blood Urea Nitrogen 9 mg/dL (9-16); Calcium 9.4 mg/dL (8.4-10.2); Carbon Dioxide 30 mmol/L (22-29); Chloride 105 mmol/L (96-108); Creatinine Clr Calc Pharmacy 57.6; Estimated Glomerular Filt Rate > 60; Glucose Random 127 mg/dL (60-115); Sodium 145 mmol/L (135-145)
[2022-08-17 18:16] LABS: Troponin-I High Sensitivity < 2.7 ng/L (<3.5-17.0)
[2022-08-17 18:18] LABS: Basophils Percent Auto 0.4 % (0-2); Eosinophils Absolute Auto 0.3 X10*3/uL (0.0-0.4); Eosinophils Percent Auto 4.4 % (0-4); Hemoglobin 13.5 g/dl (12.0-16.0); Imm Gran Abs Auto 0.04 X10*3/uL (0.00-0.03); Imm Gran Pct Auto 0.5 % (0.0-0.4); Lymphocytes Absolute Auto 0.9 X10*3/uL (1.2-4.9); Lymphocytes Percent Auto 11.7 % (20-40); Mean Corpuscular HGB Conc 32.9 g/dl (31.0-35.0); Mean Corpuscular Hemoglobin 31.3 pg (27.0-33.0); Mean Corpuscular Volume 95.1 fL (80.0-98.0); Mean Platelet Volume 11.8 fL (9.4-12.3); Monocytes Absolute Auto 0.5 X10*3/uL (0.1-1.2); Monocytes Percent Auto 7.1 % (2-11); Neutrophils Absolute Auto 5.6 x10*3/uL (2.0-8.3); Neutrophils Percent Auto 75.9 % (45-73); Platelet Count 200 X10*3/uL (160-400); Red Blood Count 4.31 X10*6/uL (4.20-5.50); Red Cell Distribution Width 12.2 % (11.0-16.0); White Blood Count 7.4 X10*3/uL (4.8-10.8)
--- NOTE | 2022-08-17 18:18 | PC.NURSE ---
pt AOX4, labs drawn. reporting bilat knee pain and head pain. pt going to CT scan
[2022-08-17] MEDS: Acetaminophen 325 MG TABLET 650 MG PO (18:29)
[2022-08-17] MEDS: Ondansetron ODT 4 MG TAB.RAPDIS TRANSLINGU (18:30)
[2022-08-17] MEDS: Potassium Chloride ER 20 MEQ TAB.ER.PRT 40 MEQ PO (18:41)
--- NOTE | 2022-08-17 19:56 | PC.NURSE ---
pt to Xray
[2022-08-17 20:34] VITALS: PULSE 90; RESP 16; O2SAT 98
== END 2022-08-17 21:57 | disposition home or self-care (01) ==
PROVIDERS: Registered Nurse Emergency; Emergency Provider Emergency Medicine
DX: S00.83XA Contusion of other part of head, initial encounter (principal); W17.89XA Other fall from one level to another, initial encounter; M25.551 Pain in right hip; M25.562 Pain in left knee; M25.561 Pain in right knee; Y93.89 Activity, other specified; Y92.010 Kitchen of single-family (private) house as the place of occurrence of the external cause; Y99.9 Unspecified external cause status; I11.0 Hypertensive heart disease with heart failure; I50.9 Heart failure, unspecified
CPT/HCPCS: 36415; 70450; 72125; 73502; 73560; 80048; 84484; 85025; 93005; 99284

== ENCOUNTER 2023-02-13 17:12 | Emergency (ER) | payer MEDICARE, SELFPAY ==
--- NOTE | ~2023-02-13 | CT_ITS ---
EXAMINATION: CT ABDOMEN AND PELVIS WITH CONTRAST CLINICAL INFORMATION: Left lower quadrant pain. COMPARISON: CT abdomen pelvis 11/03/2016 TECHNIQUE: Multidetector volumetric images were obtained from the superior aspect of the liver through the pubic symphysis following administration 85 mL of Omnipaque 350 intravenous contrast. Sagittal and coronal reformatted images were obtained on the technologist's workstation. Oral contrast: No This CT examination was performed using dose optimization techniques as appropriate, variously including the following: *Automated exposure control *Adjustment of mA and/or kV according to patient size (this includes techniques or standardized protocols for targeted exams where dose is matched to indication/reason for exam; i.e. extremities or head) *Use of iterative reconstruction technique DLP: 1142 mGy-cm FINDINGS: LUNG BASES: The visualized lung bases are unremarkable. LIVER, GALLBLADDER, AND BILIARY TREE: The liver is normal in size, shape, and attenuation. No focal hepatic lesion or biliary ductal dilatation is present. The gallbladder is unremarkable with no evidence of radiopaque gallstones, gallbladder wall thickening, or obvious pericholecystic inflammatory changes. PANCREAS: Unremarkable. SPLEEN: Unremarkable. ADRENAL GLANDS: Unremarkable. KIDNEYS AND URETERS: The kidneys are normal in size, shape, and attenuation. The bilateral radiopaque calculi. The largest measuring 5 mm and lower pole left kidney and to 4 mm radiopaque calculi lower pole right kidney. BLADDER: Unremarkable. GASTROINTESTINAL TRACT: There is diffuse diverticuli seen throughout the colon with scattered stool and gas but no obstruction or diverticulitis. There is nonspecific mild focal mural thickening descending colon axial image 39/3 and image 50/3. There is mild pericolic fat stranding suspicious for diverticulitis. The small bowel loops are normal caliber. Appendix is not visualized. No inflammatory process seen in the right lower quadrant. ABDOMINAL WALL: No significant hernia is appreciated. LYMPH NODES: Normal. VASCULAR: Unremarkable. PELVIC VISCERA: Unremarkable. OSSEOUS STRUCTURES: There are degenerative disc changes L5-S1, lower dorsal and upper lumbar spine. No lytic or sclerotic process seen. There are bilateral hip prosthesis and artifact limiting lower pelvic evaluation. CT/CT abdomen pelvis w IV con IMPRESSION: 1. Diffuse colonic diverticulosis with mild mural thickening descending colon and pericolic fat stranding suspicious for diverticulitis. No free air or free fluid seen. 2. Bilateral nonobstructive radiopaque renal calculi. No hydronephrosis. 3. Degenerative disc changes L5-S1, lower dorsal and upper lumbar spine. Fleischner guidelines were followed.
[2023-02-13 17:21] VITALS: BP 112/98; BP 142/86; PULSE 87; PULSE 98; RESP 20; TEMP 36.5; O2SAT 95; O2SAT 98; BMI 39.4
--- NOTE | 2023-02-13 17:41 | ED_ITS ---
HPI - General Adult General Chief complaint: General Medical Stated complaint: abd pain. hasn't used bathroom x3 days Time Seen by Provider: 02/13/23 17:27 Source: patient and family (daughter) Mode of arrival: EMS History of Present Illness HPI narrative: Pt is a 83yo female who presents to the ED with abdominal cramping. She states that she was sitting on the toilet this afternoon trying to have a bowel movement but was unable to do so and felt like she was going to pass out. She notes abdominal cramps from having to go to the bathroom but not being able to. She notes that she gets these cramps frequently but are typically relieved with defecation. The cramps extend from her lower abdoment up her chest and feel like a pressure. She states that she took Tuns prior to calling EMS and on the way to the ED she felt short of breath and developed a red left eye. She felt as though she was having an allergic reaction to TUMS. She continues to feel soreness under her dentures because she says her gums are swollen. Denies rashes, itchiness, vision changes, or n/v. Notes last bowel movement was yesterday and that now she feels like she could go to the bathroom. She reports feeling much better, denies any current abdominal pain, lightheadedness or dizziness and does not feel like she is going to pass out. Related Data Home Medications Medication Instructions Recorded Confirmed amlodipine 5 mg tablet 5 mg PO DAILY 11/15/20 02/13/23 duloxetine 60 mg capsule,delayed 60 mg PO DAILY 11/15/20 03/06/22 release lisinopril 20 mg tablet 20 mg PO DAILY 11/15/20 03/06/22 pantoprazole 40 mg tablet,delayed 40 mg PO DAILY 11/15/20 03/06/22 release potassium chloride 20 mEq 20 meq PO DAILY 11/15/20 03/06/22 tablet,extended release(part/cryst) pravastatin 40 mg tablet 40 mg PO DAILY 11/15/20 02/13/23 ciclopirox 8 % topical solution topical 03/06/22 03/06/22 nystatin 100,000 unit/gram topical topical 03/06/22 03/06/22 powder triamcinolone acetonide 0.1 % topical 03/06/22 03/06/22 topical ointment calcium phosphate,dibasic 77 tab PO 02/13/23 02/13/23 mg-vitamin D3 400 unit tablet Previous Rx's Medication Instructions Recorded furosemide 40 mg tablet 40 mg PO DAILY 90 days #90 tabs 03/06/22 amoxicillin 875 mg-potassium 1 tab PO BID #14 tabs 02/13/23 clavulanate 125 mg tablet Allergies Allergy/AdvReac Type Severity Reaction Status Date / Time latex [Latex] Allergy Mild RASH Verified 03/06/22 15:23 celecoxib [From CELEBREX] Allergy Unknown RASH Verified 03/06/22 15:23 Rapides And Derivatives Allergy Unknown RASH ON Verified 03/06/22 15:23 FACE egg Allergy Unknown RASH FROM Verified 03/06/22 15:23 EGG WHITES gabapentin [GABAPENTIN] Allergy Unknown RASH Verified 03/06/22 15:23 lactose [LACTOSE] Allergy Unknown INTOLERANT Verified 03/06/22 15:23 peas Allergy Unknown FROM Verified 03/06/22 15:23 TESTING RESULT vancomycin [VANCOMYCIN] Allergy Unknown UNKNOWN Verified 03/06/22 15:23 hydrocodone [HYDROCODONE] AdvReac Unknown ABDOMINAL Verified 03/06/22 15:23 PAIN saccharin [SACCHARIN] AdvReac Unknown HEADACHE Verified 03/06/22 15:23 JEWELRY Allergy Unknown RASH Uncoded 03/06/22 15:23 PLASTIC Allergy Unknown RASH Uncoded 03/06/22 15:23 Review of Systems 2 Constitutional: Constitutional: Denies chills, Denies fever(s) and Denies headache(s) Eyes: Eyes: Denies change in vision and Denies itchy eyes ENT: Denies dizziness, Denies headache(s) and Reports other (pt notes soreness under dentures due to swelling) Cardiovascular: Cardiovascular: Denies chest pain and Reports dyspnea Respiratory: Respiratory: Denies cough and Reports dyspnea Gastrointestinal: Gastrointestinal: Denies abdominal pain, Reports constipation, Reports GI cramping, Denies diarrhea, Denies nausea and Denies vomiting Integumentary/Breasts: Skin/Breast: Denies pruritus and Denies rash Neurologic: Denies dizziness, Denies headache(s) and Reports other (pt notes near syncope episode) Allergic/Immunologic: Allergic/Immunologic: Denies itchy eyes PMFSH Past Medical History Medical History Chronic heart failure with preserved ejection fraction (HFpEF) Essential hypertension ZAK (obstructive sleep apnea) RBBB Surgical History No pertinent past surgical history Family History Family History Father No problems noted. Mother No problems noted. Social History Social History (Updated 03/06/22 @ 15:26 by JOSHUA Millan) Alcohol intake: never Patient Tobacco Use Status: Never used Tobacco Smoked in Last 30 Days: No Use of substances other than those prescribed or required for medical reasons: No Advance Directives: No Advance Directives Information Provided: No Physical Exam ED Vital Signs: Vital Signs - 24 hr 02/13/23 17:21 02/13/23 19:03 02/13/23 21:49 Temperature 97.7 F Pulse Rate 87 96 93 Respiratory Rate 20 16 16 Blood Pressure 142/86 H 145/72 H 150/92 H Pulse Oximetry 95 99 97 Oxygen Delivery Method Room Air Room Air Room Air BMI result Body Mass Index 39.4 Const General: cooperative, healthy appearing, comfortable, no acute distress, alert and awake Nutritional Appearance: obese Orientation/consciousness: patient oriented x3 HENMT Head: Yes normocephalic and Yes atraumatic Ears: hearing grossly normal bilaterally General nose exam: Normal external nose present Mouth: Normal oral and palatal mucosa present, lip normal, tongue normal and moist mucous membranes Eyes Eyelids: Yes eyelid abnormality (left eyelid slightly erythematous) Conjunctivae: conjunctival abnormal left conjunctival injection Chest Chest palpation & inspection: normal inspection of the chest Resp Effort & Inspection: normal respiratory effort, no cough and no stridor Auscultation: clear to auscultation bilaterally and no wheezes Cardio Rate: regular rate Rhythm: regular rhythm Heart sounds: S1 normal heart sound present and S2 normal heart sound present GI Inspection: Yes normal to inspection and Yes obesity Palpation (GI): Soft to palpation, nontender, no guarding and not rigid Auscultation: normal bowel sounds Neuro General: patient oriented x3 Cranial nerves: Yes CN's II-XII intact bilaterally Motor exam (neuro): 5/5 motor strength present throughout Course Reevaluation(s) Reevaluation #1: Patient's CT scan shows questionable mild diverticulitis. Clinically the patient has more constipation than bloody diarrhea. She has no white count, no fever feel that diverticulitis is less likely. I discussed this with the patient her daughter was bedside. The patient does have a history of diverticulitis. I will send a prescription for Augmentin to the patient's pharmacy and advised her to take it if she develops severe left lower quadrant abdominal pain or persistent diarrhea. Time: 21:55 Medications Administered Discontinued Medications Generic Name Dose Route Start Last Admin Trade Name Talita PRN Reason Stop Dose Admin Diphenhydramine HCl 25 mg 02/13/23 17:59 02/13/23 18:17 Diphenhydramine Hcl 50 Mg/Ml Vial IVPUSH 02/13/23 18:00 25 mg ONCE ONE Administration Famotidine 20 mg 02/13/23 17:59 02/13/23 18:17 Famotidine/Pf 20 Mg/2 Ml Vial IVPUSH 02/13/23 18:00 20 mg ONCE ONE Administration Iohexol 85 ml 02/13/23 20:07 02/13/23 20:07 Iohexol 350 Mg/Ml 100 Ml Infus..Btl IV 02/13/23 20:08 85 ml ONCE ONE Administration Medical Decision Making Medical Decision Making [facility] Narrative: 83-year-old female presents for evaluation of abdominal pain and near syncopal episode. This symptoms started while she was trying to have a bowel movement. It is possible that she had an episode of vasovagal syncope. She has had a large bowel movement that did not appear bloody while in the emergency department. She is currently pain-free. Her vital signs are stable, she appears well. We will get a by workup including labs, UA, CT scan of the abdomen pelvis. Will get an EKG. Patient's vital signs are within normal limits. Differential Diagnosis Differential Diagnoses: The differential diagnosis associated with the presentation includes (allergic reaction, constipation, GERD, vasovagal syncope, bowel obstruction, diverticulitis, colitis) Admission/Observation Consideration of admission/observation: Escalation of care including admission/observation considered Patient presenting for syncope Lab Data [facility] Lab Attestation statement: I reviewed the patient's lab results. No leukocytosis or significant anemia. No significant electrolyte abnormalities 02/13/23 19:07 02/13/23 19:07 Labs: Lab Results 02/13/23 02/13/23 Range/Units 19:07 21:47 WBC 9.3 (4.8-10.8) X10*3/uL RBC 4.37 (4.20-5.50) X10*6/uL Hgb 13.6 (12.0-16.0) g/dl Hct 42.2 (37.0-47.0) % MCV 96.6 (80.0-98.0) fL MCH 31.1 (27.0-33.0) pg MCHC 32.2 (31.0-35.0) g/dl RDW 12.7 (11.0-16.0) % Plt Count 206 (160-400) X10*3/uL MPV 11.3 (9.4-12.3) fL Immature Gran % (Auto) 0.2 (0.0-0.4) % Neut % (Auto) 83.6 H (45-73) % Lymph % (Auto) 7.3 L (20-40) % Potter % (Auto) 7.1 (2-11) % Eos % (Auto) 1.5 (0-4) % Baso % (Auto) 0.3 (0-2) % Lymph # (Auto) 0.7 L (1.2-4.9) X10*3/uL Potter # (Auto) 0.7 (0.1-1.2) X10*3/uL Eos # (Auto) 0.1 (0.0-0.4) X10*3/uL Baso # (Auto) 0.0 (0.0-0.2) X10*3/uL Abs Immat Gran (auto) 0.02 (0.00-0.03) X10*3/uL Absolute Neuts (auto) 7.8 (2.0-8.3) x10*3/uL Absolute Nucleated RBC 0.000 (0.0-0.012) X10*3/uL Nucleated RBC % (auto) 0.0 (0.0-0.2) /100WBC Sodium 140 (135-145) mmol/L Potassium 3.4 (3.3-5.1) mmol/L Chloride 105 (96-108) mmol/L Carbon Dioxide 26 (22-29) mmol/L Anion Gap 12 (12-20) BUN 15 (9-16) mg/dL Creatinine 1.11 (0.5-1.4) mg/dL Estim Creat Clear Calc 46.7 Estimated GFR 47 Random Glucose 158 H (60-115) mg/dL Calcium 9.4 (8.4-10.2) mg/dL Total Bilirubin 0.8 (0.0-1.0) mg/dL AST 19 (5-31) U/L ALT 11 (0-31) U/L Alkaline Phosphatase 115 (39-117) U/L Troponin I High Sens < 2.7 (<3.5-17.0) ng/L Total Protein 7.2 (6.5-8.0) g/dL Albumin 4.1 (3.5-5.0) g/dL Lipase 42 (8-78) U/L Urine Color Yellow Urine Appearance Clear Urine pH 6.5 (5.0-9.0) Ur Specific [place] 1.020 (1.005-1.025) Urine Protein Negative (Neg-Trace) mg/dL Urine Glucose (UA) Negative (Negative) mg/dL Urine Ketones Negative (Negative) mg/dL Urine Blood Negative (Negative) Urine Nitrite Negative (Negative) Ur Leukocyte Esterase Small (1+) H (Negative) Discharge Plan Discharge Clinical Impression: Abdominal pain, Near syncope Patient Disposition: Home, Self-Care Instructions: Diverticulitis (ED) Additional Instructions: Your workup in the emergency department today was reassuring. The CT scan said that maybe you have a developing diverticulitis I sent a prescription for antibiotics to your pharmacy. I would advise that you only take the antibiotics if you have severe left lower quadrant abdominal pain or persistent diarrhea Follow-up with your primary doctor, return for new or worsening symptoms Prescriptions: New amoxicillin-pot clavulanate 875-125 mg tablet 1 tab PO BID Qty: 14 0RF No Action Vitamin D (with calcium) 77-400 mg-unit Tablet PO potassium chloride 20 mEq tablet,ER particles/crystals 20 meq PO DAILY duloxetine 60 mg capsule,delayed release(DR/EC) 60 mg PO DAILY pantoprazole 40 mg tablet,delayed release (DR/EC) 40 mg PO DAILY amlodipine 5 mg tablet 5 mg PO DAILY pravastatin 40 mg tablet 40 mg PO DAILY lisinopril 20 mg tablet 20 mg PO DAILY triamcinolone acetonide 0.1 % ointment topical nystatin 100,000 unit/gram powder topical ciclopirox 8 % solution topical furosemide 40 mg tablet 40 mg PO DAILY 90 Days Qty: 90 3RF
--- NOTE | 2023-02-13 18:00 | ECG_ITS ---
Test Reason : NEAR SYNCOPE Blood Pressure : / mmHG Vent. Rate : 089 BPM Atrial Rate : 000 BPM P-R Int : 000 ms QRS Dur : 128 ms QT Int : 394 ms P-R-T Axes : 000 036 051 degrees QTc Int : 479 ms Wide QRS rhythm Right bundle branch block ST elevation consider inferior injury or acute infarct ACUTE NH / STEMI Abnormal ECG When compared with ECG of 17-AUG-2022 17:29, Wide QRS rhythm has replaced Sinus rhythm Referred By: Ankur Malave Electronically Signed By:
[2023-02-13] MEDS: diphenhydrAMINE HCL 50 MG/ML VIAL 25 MG IVPUSH (18:17)
[2023-02-13] MEDS: Famotidine/PF 20 MG/2 ML VIAL IVPUSH (18:17)
--- NOTE | 2023-02-13 18:17 | PC.NURSE ---
medication administered per provider order.
--- NOTE | 2023-02-13 18:30 | PC.NURSE ---
pt ambulated to commode w/ 2:1 assist - unsteady gait. uses walker baseline. urine sample not obtained d/t BM that was inside of hat. purewick placed - will obtain urine sample when able. ekg being performed by [employer] ([place] at this time.
[2023-02-13 19:03] VITALS: BP 145/72; PULSE 96; RESP 16; O2SAT 99
--- NOTE | 2023-02-13 19:07 | PC.NURSE ---
vss and up to date at this time. labs obtained and sent to lab. resting comfortably in no apparent distress. family bedside. call chiu placed within reach.
[2023-02-13 19:11] LABS: MANUAL DIFF FLAG NO
[2023-02-13 19:13] LABS: Basophils Percent Auto 0.3 % (0-2); Eosinophils Absolute Auto 0.1 X10*3/uL (0.0-0.4); Eosinophils Percent Auto 1.5 % (0-4); Hematocrit 42.2 % (37.0-47.0); Hemoglobin 13.6 g/dl (12.0-16.0); Imm Gran Abs Auto 0.02 X10*3/uL (0.00-0.03); Imm Gran Pct Auto 0.2 % (0.0-0.4); Lymphocytes Absolute Auto 0.7 X10*3/uL (1.2-4.9); Lymphocytes Percent Auto 7.3 % (20-40); Mean Corpuscular HGB Conc 32.2 g/dl (31.0-35.0); Mean Corpuscular Hemoglobin 31.1 pg (27.0-33.0); Mean Corpuscular Volume 96.6 fL (80.0-98.0); Mean Platelet Volume 11.3 fL (9.4-12.3); Monocytes Absolute Auto 0.7 X10*3/uL (0.1-1.2); Monocytes Percent Auto 7.1 % (2-11); Neutrophils Absolute Auto 7.8 x10*3/uL (2.0-8.3); Neutrophils Percent Auto 83.6 % (45-73); Platelet Count 206 X10*3/uL (160-400); Red Blood Count 4.37 X10*6/uL (4.20-5.50); Red Cell Distribution Width 12.7 % (11.0-16.0); White Blood Count 9.3 X10*3/uL (4.8-10.8)
[2023-02-13 19:30] LABS: Alanine Aminotransferase 11 U/L (0-31); Albumin Level 4.1 g/dL (3.5-5.0); Alkaline Phosphatase 115 U/L (39-117); Anion Gap 12 (12-20); Aspartate Amino Transferase 19 U/L (5-31); Bilirubin Total 0.8 mg/dL (0.0-1.0); Blood Urea Nitrogen 15 mg/dL (9-16); Calcium 9.4 mg/dL (8.4-10.2); Carbon Dioxide 26 mmol/L (22-29); Chloride 105 mmol/L (96-108); Creatinine Clr Calc Pharmacy 46.7; Estimated Glomerular Filt Rate 47; Glucose Random 158 mg/dL (60-115); Lipase 42 U/L (8-78); Potassium 3.4 mmol/L (3.3-5.1); Sodium 140 mmol/L (135-145); Total Protein 7.2 g/dL (6.5-8.0)
[2023-02-13 19:38] LABS: Troponin-I High Sensitivity < 2.7 ng/L (<3.5-17.0)
--- NOTE | 2023-02-13 19:51 | PC.NURSE ---
pt to CT at this time.
[2023-02-13] MEDS: iohexoL 350 MG/ML 100 ML INFUS..BTL 85 ML IV (20:07)
[2023-02-13 21:49] VITALS: BP 150/92; PULSE 93; RESP 16; O2SAT 97
[2023-02-13 21:53] LABS: Appearance Urine Clear; Color Urine Yellow; Glucose Urine UA Negative (Negative); Leukocyte Esterase Urine Small (1+) (Negative); Nitrite Urine Negative (Negative); PH 6.5 (5.0-9.0); UMIC TRIGGER UACC YES; Urine Blood Negative (Negative); Urine Ketones Negative (Negative); Urine Protein Negative (Neg-Trace)
[2023-02-13 21:55] LABS: Bacteria Urine None Seen (None Seen); Hyaline Casts Urine 0-2 /LPF (0-2); RBC Urine 0-2 /HPF (0-2); Squamous Epithelial Cell Urine 0-2 /HPF (0-2); UACC Culture Trigger YES
== END 2023-02-13 22:19 | disposition home or self-care (01) ==
PROVIDERS: Physician Assistant; Emergency Provider Emergency Medicine; PCP Physician Assistant Medical
DX: R55 Syncope and collapse (principal); R10.9 Unspecified abdominal pain; R25.2 Cramp and spasm; R07.89 Other chest pain; Z79.899 Other long term (current) drug therapy
CPT/HCPCS: 36415; 74177; 80053; 81001; 83690; 84484; 85025; 87086; 93005; 96374; 96375; 99284; J1200; Q9967

== ENCOUNTER 2024-11-03 11:42 | Emergency (ER) | payer MEDICARE, SELFPAY ==
--- NOTE | ~2024-11-03 | XR_ITS ---
EXAMINATION: XR CHEST CLINICAL INFORMATION: dyspnea COMPARISON: 06/27/2021. TECHNIQUE: 2 views of the chest were obtained. FINDINGS: The cardiac, hilar, and mediastinal contours are normal. Aortic mural calcifications. The lungs are clear bilaterally. There is no pneumothorax or pleural effusion. There is no focal osseous or soft tissue abnormality. 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 XR/XR chest 2V IMPRESSION: No active pulmonary disease. Electronically signed by: Cooper Sharpe MD 11/03/2024 01:18 PM EDT
--- NOTE | ~2024-11-03 | US_ITS ---
EXAMINATION: US TRIPLEX LOWER EXTREMITY, LEFT CLINICAL INFORMATION: Pain, left lower extremity. COMPARISON: None available. TECHNIQUE: Color-flow triplex imaging with spectral analysis and compression Doppler were performed on the left lower extremity. FINDINGS: Respiratory variation, normal compression and augmented flow are demonstrated in the interrogated left common femoral vein, superficial femoral vein, profunda femoral vein, popliteal vein and midcalf peroneal and posterior tibial venous segments . There is no Barragan's cyst. US/US venous duplex LE LT IMPRESSION: No acute deep venous thrombosis interrogated veins, left lower extremity. Negative for DVT. Electronically signed by: Erik Pereira MD 11/03/2024 01:38 PM EDT
--- NOTE | 2024-11-03 12:28 | ED.GENADULT ---
HPI - General Adult General Chief complaint: Dyspnea Stated complaint: SOB SINCE LAST NIGHT FROM [facility] PER EMS Time Seen by Provider: 11/03/24 12:28 Source: patient, EMS, RN notes reviewed and old records reviewed Mode of arrival: EMS Limitations: altered mental status History of Present Illness ED Provider: Trevor HPI narrative: Patient is an 84-year-old female with history of HFpEF, RBBB, ZAK, HTN, GERD, Alzheimer's dementia, obesity, osteoarthritis, fibromyalgia presenting to the emergency department for shortness of breath which staff reported to EMS appeared related to anxiety. Patient only oriented to person, very limited ability to report HPI. She does report left calf pain. Denies current chest pain or shortness of breath. Unable to report if she has had MD complaint: shortness of breath Related Data Home Medications ?Medication ?Instructions ?Recorded ?Confirmed amlodipine 5 mg tablet 5 mg PO DAILY 11/15/20 02/13/23 duloxetine 60 mg capsule,delayed 60 mg PO DAILY 11/15/20 03/06/22 release lisinopril 20 mg tablet 20 mg PO DAILY 11/15/20 03/06/22 pantoprazole 40 mg tablet,delayed 40 mg PO DAILY 11/15/20 03/06/22 release potassium chloride 20 mEq 20 meq PO DAILY 11/15/20 03/06/22 tablet,extended release(part/cryst) pravastatin 40 mg tablet 40 mg PO DAILY 11/15/20 02/13/23 ciclopirox 8 % topical solution topical 03/06/22 03/06/22 nystatin 100,000 unit/gram topical topical 03/06/22 03/06/22 powder triamcinolone acetonide 0.1 % topical 03/06/22 03/06/22 topical ointment calcium phosphate,dibasic 77 tab PO 02/13/23 02/13/23 mg-vitamin D3 400 unit tablet Previous Rx's ?Medication ?Instructions ?Recorded furosemide 40 mg tablet 40 mg PO DAILY 90 days #90 tabs 03/06/22 amoxicillin 875 mg-potassium 1 tab PO BID #14 tabs 02/13/23 clavulanate 125 mg tablet Allergies Allergy/AdvReac Type Severity Reaction Status Date / Time latex (Latex) Allergy Mild RASH Verified 11/03/24 12:48 celecoxib (From CELEBREX) Allergy Unknown RASH Verified 11/03/24 12:48 [place] And Derivatives Allergy Unknown RASH ON Verified 11/03/24 12:48 FACE egg Allergy Unknown RASH FROM Verified 11/03/24 12:48 EGG WHITES gabapentin (GABAPENTIN) Allergy Unknown RASH Verified 11/03/24 12:48 lactose (LACTOSE) Allergy Unknown INTOLERANT Verified 11/03/24 12:48 peas Allergy Unknown FROM Verified 11/03/24 12:48 TESTING RESULT vancomycin (VANCOMYCIN) Allergy Unknown UNKNOWN Verified 11/03/24 12:48 hydrocodone (HYDROCODONE) AdvReac Unknown ABDOMINAL Verified 11/03/24 12:48 PAIN saccharin (SACCHARIN) AdvReac Unknown HEADACHE Verified 11/03/24 12:48 JEWELRY Allergy Unknown RASH Uncoded 11/03/24 12:48 PLASTIC Allergy Unknown RASH Uncoded 11/03/24 12:48 Review of Systems Review of Systems: as per HPI Yes all other systems are reviewed and are negative Constitutional: Constitutional: Reports as per HPI Neurologic: Reports confusion Psychiatric: Psychiatric: Reports confusion [facility] Past Medical History Medical History Chronic heart failure with preserved ejection fraction (HFpEF) Essential hypertension ZAK (obstructive sleep apnea) RBBB Surgical History No pertinent past surgical history Family History Family History Father No problems noted. Mother No problems noted. Social History Social History (Updated 03/06/22 @ 15:26 by JOSHUA Millan) Alcohol intake: never Patient Tobacco Use Status: Never used Tobacco Advance Directives: No Advance Directives Information Provided: Yes Do you have a plan to hurt others: No Plan Physical Exam ED Vital Signs: Vital Signs - 24 hr 11/03/24 12:37 11/03/24 14:44 Temperature 98.2 F 97.1 F Pulse Rate 84 83 Respiratory Rate 18 15 Blood Pressure 132/72 130/75 Pulse Oximetry 97 97 Oxygen Delivery Method Room Air Room Air BMI result Body Mass Index 38.6 Vital signs have been reviewed and appear to be correct. Blood pressure normal. Heart rate normal. Respiratory rate normal. Temperature normal. Oxygen saturation normal. Const General: cooperative, healthy appearing, no acute distress, alert, awake and confusion Orientation/consciousness: oriented to person and confusion Limitations: altered mental status HENMT Head: Yes normocephalic and Yes atraumatic Ears: external ears normal General nose exam: Normal external nose present Face and sinus: Yes face symmetric Mouth: oropharynx normal and moist mucous membranes Throat: Yes uvula midline Eyes Pupils: Equal, round and reactive pupils present Neck Neck: Yes normal visual inspection and Yes supple Resp Effort & Inspection: normal respiratory effort and able to speak in complete sentences Auscultation: clear to auscultation bilaterally Cardio Rate: regular rate Rhythm: regular rhythm Heart sounds: S1 normal heart sound present and S2 normal heart sound present GI Palpation (GI): Soft to palpation and nontender Auscultation: normoactive bowel sounds General: Yes no CVA tenderness Back/Spine/Pelvis Back: no CVA tenderness Skin General skin exam: elasticity normal and turgor normal Neuro General: oriented to person, moves all extremities, no focal motor deficits, CN's II-XI intact bilaterally and confusion Cranial nerves: Yes Equal, round and reactive pupils present Cognition (Neuro): normal cognition Extrem General: Yes full ROM and Yes no pedal edema Left lower extremity: lower leg Details: tenderness Location: of the posterior calf and foot Details: vascular exam Details: dorsalis pedis pulse present, posterior tibial pulse present and normal capillary refill Psych Mental Status: mental status grossly normal Affect: normal affect Thought process: Normal thought process present Course Reevaluation(s) Reevaluation #1: Notified by technology lead that while obtaining EKG, patient's HR appeared to intermittently go up over 200bpm, but this was unable to be captured on the EKG. RN reports that this rhythm appeared very irregular and patient was shivering at the time. Patient placed on quality assurance monitor final now in attempt to obtain tracing of this rapid HR. Time: 13:44 Reevaluation #2: Patient has been observed in the ED for >3 hours since reported tachycardic episode during EKG and has not had any additional episodes of tachycardia. Suspect this was likely artifact due to shivering at the time. She has denied chest pain, palpitations, and dyspnea since arrival to the ED. Time: 17:11 Medical Decision Making Medical Decision Making MDM Narrative: Patient is an 84-year-old female with history of HFpEF, RBBB, ZAK, HTN, GERD, Alzheimer's dementia, obesity, osteoarthritis, fibromyalgia presenting to the emergency department for shortness of breath which staff reported to EMS appeared related to anxiety. On exam patient is awake, A+Ox3, VS WNL, afebrile, normal neurological exam without focal deficits, physical exam findings as above. Given reported symptoms and physical exam findings, initial differential includes but is not limited to LLE DVT, CHF exacerbation, cardiac arrhythmia, viral illness, pneumonia. Less likely ACS but will obtain EKG and troponin. Labs notable for no leukocytosis, no anemia, no significant electrolyte abnormalities, negative troponin, negative BNP. LLE U/S notable for no evidence of DVT. Chest x-ray is without evidence of pneumonia or edema. My interpretation is in agreement with the radiologist's interpretation. Viral serology negative. UA notable for 3+ leukocytes, negative nitrites, 6-10 epithelials, suspect this is contamination. Patient has been observed in the ED for >3 hours since reported tachycardic episode during EKG and has not had any additional episodes of tachycardia. Suspect this was likely artifact due to shivering at the time. She has denied chest pain, palpitations, and dyspnea since arrival to the ED. Feel patient is stable for discharge back to her dementia unit at this time. Son is at bedside and in agreement with this plan. He states he will transport her back there himself via private vehicle. Advised follow up with PCP. Return precautions discussed. Son verbalized understanding of and agreement with plan. Differential Diagnosis Differential Diagnoses: The differential diagnosis associated with the presentation [facility] Admission/Observation Consideration of admission/observation: Escalation of care including admission/observation considered Patient would have been admitted to the hospital had their clinical presentation warranted hospital admission. Lab Data [facility] Lab Attestation statement: I reviewed the patient's lab results. [facility] 11/03/24 13:49 11/03/24 13:49 Labs: Lab Results 11/03/24 11/03/24 11/03/24 Range/Units 13:22 13:49 16:10 WBC 4.9 (4.8-10.8) X10*3/uL RBC 4.33 (4.20-5.50) X10*6/uL Hgb 13.6 (12.0-16.0) g/dl Hct 41.3 (37.0-47.0) % MCV 95.4 (80.0-98.0) fL MCH 31.4 (27.0-33.0) pg MCHC 32.9 (31.0-35.0) g/dl RDW 12.9 (11.0-16.0) % Plt Count 199 (160-400) X10*3/uL MPV 12.0 (9.4-12.3) fL Immature Gran % (Auto) 0.2 (0.0-0.4) % Neut % (Auto) 65.1 (45-73) % Lymph % (Auto) 19.3 L (20-40) % [place] % (Auto) 8.9 (2-11) % Eos % (Auto) 5.9 H (0-4) % Baso % (Auto) 0.6 (0-2) % Lymph # (Auto) 1.0 L (1.2-4.9) X10*3/uL [place] # (Auto) 0.4 (0.1-1.2) X10*3/uL Eos # (Auto) 0.3 (0.0-0.4) X10*3/uL Baso # (Auto) 0.0 (0.0-0.2) X10*3/uL Abs Immat Gran (auto) 0.01 (0.00-0.03) X10*3/uL Absolute Neuts (auto) 3.2 (2.0-8.3) x10*3/uL Absolute Nucleated RBC 0.000 (0.0-0.012) X10*3/uL Nucleated RBC % (auto) 0.0 (0.0-0.2) /100WBC PT 11.1 (10.9-12.4) SEC INR 1.0 (0.9-1.1) Sodium 145 (135-145) mmol/L Potassium 4.1 (3.3-5.1) mmol/L Chloride 104 (96-108) mmol/L Carbon Dioxide 27 (22-29) mmol/L Anion Gap 18 (12-20) BUN 15 (9-16) mg/dL Creatinine 1.02 (0.5-1.4) mg/dL Estim Creat Clear Calc 53.0 Estimated GFR 52 Random Glucose 100 (60-115) mg/dL Calcium 9.7 (8.4-10.2) mg/dL Magnesium 2.3 (1.6-2.6) mg/dL Total Bilirubin 1.2 H (0.0-1.0) mg/dL AST 27 (5-31) U/L ALT 13 (0-31) U/L Alkaline Phosphatase 115 (39-117) U/L Troponin I High Sens 3.6 (<3.5-17.0) ng/L B-Natriuretic Peptide 12 (<100) pg/mL Total Protein 7.4 (6.5-8.0) g/dL Albumin 4.5 (3.5-5.0) g/dL Urine Color Yellow Urine Appearance Clear Urine pH 8.0 (5.0-9.0) Ur Specific [place] <= 1.005 (1.005-1.025) Urine Protein Negative (Neg-Trace) mg/dL Urine Glucose (UA) Negative (Negative) mg/dL Urine Ketones Negative (Negative) mg/dL Urine Blood Negative (Negative) Urine Nitrite Negative (Negative) Ur Leukocyte Esterase Large (3+) H (Negative) Urine RBC 0-2 (0-2) /HPF Urine WBC 21-50 H (0-5) /HPF Ur Squamous Epith Cells 6-10 (0-2) /HPF Urine Bacteria None Seen (None Seen) Hyaline Casts 0-2 (0-2) /LPF Influenza Type A (PCR) NEGATIVE (Negative) Influenza Type B (PCR) NEGATIVE (Negative) RSV RNA Qual (PCR) NEGATIVE (Negative) SARS-CoV-2 RNA (RT-PCR) NEGATIVE (Negative) Independent Interpretation I performed an independent interpretation of an: Plain X-Ray and Ultrasound Interpretation: Chest x-ray is without evidence of pulmonary edema or pneumonia. Left lower extremity ultrasound negative for DVT. Radiology Impression Discussion of test interpretation with radiology: I have reviewed the radiologist's reading. Radiologist Impression: XR/XR chest 2V IMPRESSION: No active pulmonary disease. US/US venous duplex LE LT IMPRESSION: No acute deep venous thrombosis interrogated veins, left lower extremity. Negative for DVT. Independent Historian Clinical information obtained from an independent historian. History obtained from or confirmed by: Other (son) External Record Review External record reviewed: Inpatient record, Office record and Outpatient record Critical Care Time Critical Care Time Critical Care Time: Yes Total Critical Care Time: 45 Attestation: I have personally provided critical care time exclusive of time spent on separately billable procedures. Time includes review of lab data, radiology results, discussion with consultants, and monitoring for potential decompensation. Intervention performed as documented. Discharge Plan Discharge Clinical Impression: Shortness of breath Patient Disposition: [facility] Transfer Details: via private vehicle with son Instructions: Shortness of Breath (ED) Additional Instructions: You were evaluated in the emergency department today for shortness of breath. Your evaluation including EKG, labs, chest x-ray, left lower leg ultrasound did not show evidence of conditions requiring emergent medical treatment at this time. We recommend that you follow-up with your primary care provider. Return to the emergency department if you develop chest pain, shortness breath or difficulty breathing, fever 100.4? F or greater or any other new or concerning symptoms. Prescriptions: No Action Vitamin D (with calcium) 77-400 mg-unit Tablet PO amoxicillin-pot clavulanate 875-125 mg tablet 1 tab PO BID Qty: 14 0RF potassium chloride 20 mEq tablet,ER particles/crystals 20 meq PO DAILY duloxetine 60 mg capsule,delayed release(DR/EC) 60 mg PO DAILY pantoprazole 40 mg tablet,delayed release (DR/EC) 40 mg PO DAILY amlodipine 5 mg tablet 5 mg PO DAILY pravastatin 40 mg tablet 40 mg PO DAILY lisinopril 20 mg tablet 20 mg PO DAILY triamcinolone acetonide 0.1 % ointment topical nystatin 100,000 unit/gram powder topical ciclopirox 8 % solution topical furosemide 40 mg tablet 40 mg PO DAILY 90 Days Qty: 90 3RF Print Language: Bengali
--- NOTE | 2024-11-03 12:29 | ECG_ITS ---
Test Reason : DYSPNEA Blood Pressure : */* mmHG Vent. Rate : 78 BPM Atrial Rate : 78 BPM P-R Int : 186 ms QRS Dur : 134 ms QT Int : 442 ms P-R-T Axes : 77 25 26 degrees QTcB Int : 503 ms Normal sinus rhythm Right bundle branch block Abnormal ECG When compared with ECG of 13-Feb-2023 18:45, Poor data quality in prior EKG prevents accurtae comparision Referred By: Cate Murray Electronically Signed By: MARC BACH MD
[2024-11-03 12:37] VITALS: BP 132/72; BP 168/79; PULSE 84; PULSE 88; RESP 18; TEMP 36.8; O2SAT 97; O2SAT 99; BMI 38.6
--- NOTE | 2024-11-03 13:24 | MHC.EDTECH ---
This pct attempted to obtain an ekg but the patient is undergoing a ultra sound right now so will return once ultrasound is completed, RN Aware
[2024-11-03 13:30] LABS: Appearance Urine Clear; Glucose Urine UA Negative (Negative); PH 8.0 (5.0-9.0); Specific Gravity - Urine <= 1.005 (1.005-1.025); UMIC TRIGGER UACC YES
[2024-11-03 13:58] LABS: MANUAL DIFF FLAG NO
[2024-11-03 14:01] LABS: Hematocrit 41.3 % (37.0-47.0); Hemoglobin 13.6 g/dl (12.0-16.0); Imm Gran Abs Auto 0.01 X10*3/uL (0.00-0.03); Imm Gran Pct Auto 0.2 % (0.0-0.4); Lymphocytes Absolute Auto 1.0 X10*3/uL (1.2-4.9); Mean Corpuscular HGB Conc 32.9 g/dl (31.0-35.0); Mean Corpuscular Hemoglobin 31.4 pg (27.0-33.0); Mean Corpuscular Volume 95.4 fL (80.0-98.0); NRBC Abs Auto 0.000 X10*3/uL (0.0-0.012); NRBC Pct Auto 0.0 /100WBC (0.0-0.2); Platelet Count 199 X10*3/uL (160-400); Red Blood Count 4.33 X10*6/uL (4.20-5.50); White Blood Count 4.9 X10*3/uL (4.8-10.8)
[2024-11-03 14:09] LABS: INTERNATIONAL NORM RATIO 1.0 (0.9-1.1); Prothrombin Time 11.1 SEC (10.9-12.4)
[2024-11-03 14:19] LABS: Alanine Aminotransferase 13 U/L (0-31); Albumin Level 4.5 g/dL (3.5-5.0); Alkaline Phosphatase 115 U/L (39-117); Anion Gap 18 (12-20); Aspartate Amino Transferase 27 U/L (5-31); Blood Urea Nitrogen 15 mg/dL (9-16); Calcium 9.7 mg/dL (8.4-10.2); Carbon Dioxide 27 mmol/L (22-29); Chloride 104 mmol/L (96-108); Creatinine Clr Calc Pharmacy 53.0; Estimated Glomerular Filt Rate 52; Magnesium 2.3 mg/dL (1.6-2.6); Potassium 4.1 mmol/L (3.3-5.1); Sodium 145 mmol/L (135-145); Total Protein 7.4 g/dL (6.5-8.0)
[2024-11-03 14:25] LABS: B Type Natriuretic Peptide 12 pg/mL (<100)
[2024-11-03 14:28] LABS: Troponin-I High Sensitivity 3.6 ng/L (<3.5-17.0)
[2024-11-03 14:39] LABS: UACC Culture Trigger YES
[2024-11-03 14:44] VITALS: BP 130/75; PULSE 83; RESP 15; TEMP 36.2; O2SAT 97
--- OUTSIDE RECORDS SUMMARY | 2024-11-03 15:40 | XMS_ITS | Patient Health Record ---
[facility] Address [address] [place] [address] Care Team Providers Care Link Trainer Maintenance Man Name Role Phone Michele, Rama Primary Care Provider Alexander Morocho Unavailable [phone] Allergies Allergen (clinical drug ingredient) Drug/Non Drug Allergy documented on EMR Reaction Allergy Type Onset Date Status celecoxib Celebrex rash Drug Allergy Active gabapentin Gabapentin rash Drug Allergy Activ e hydrocodone / ibuprofen Hydrocodone-Ibuprof en abdominal pain Drug Allergy Active pregabalin Lyrica Unknown Drug Allergy Active vancomycin Vancomycin HCl Unknown Drug Allergy A ctive adhesive tape rash Drug Allergy Act kerrie latex rash Drug Allergy Active Reason For Referral No Information Medications Medication SIG (Take, Route, Frequency, Duration) Notes Start Date End Date Status Voltaren 1 % as directed Transder mal apply bid to right foot; Duration: 30 days Not-Taki ng Vitamin D 1000 UNIT 1 tablet Orally Once a day; Duration: 30 day(s) Active Voltaren Not-Taking PreserVision AREDS 2 - as directed Orally Not-Taking Voltaren 1 % as directed Transder mal apply bid to right foot; Duration: 30 days Not-Taki ng Aleve Active Triamterene-HCTZ 37.5-25 MG 1 tablet in the morning Orally Once a day Not-Taking Lisinopril 10 MG 1 tablet Orally Once a day Active Vitamin B Complex Orally No t-Taking Physical Therapy . . . 2-3x/week; Duration: 3-4 weeks Active ALPRAZolam 1 MG 1 tablet Orally Twic e a day Not-Taking Nystop 006247 UNIT/GM Externally Twice a day Active Multi Vitamin Daily Not-Taking Ventolin HFA 108 (90 Base) MCG/ACT 2 puffs as needed Inhalation every 6 hrs Active Pravastatin Sodium 40 MG 1 tablet Orally Once a day Active Sertraline HCl 50 MG 1 tablet Orally Onc e a day Active Vancomycin HCl Not-T aking Furosemide 40 MG Orally Once a day Active Voltaren 1 % as directed Transder mal apply bid to right foot; Duration: 30 days PRN 03/01/2015 Active traMADol HCl Not-Binu ing Pantoprazole Sodium 40 MG Orally 30 mins before breakfast PRN Active Albuterol Not-Taking Clobetasol Propionate Not-Taking Clotrimazole-Betamethason e Not-Taking Nystatin-Triamcinolone 429685-7.1 UNIT/GM Externally Twice a day Active Fluocinonide 0.05 % Externally Active Zaditor Active Calcium + D3 600-200 MG-UNIT Orally Not-Taking Vitamin B6 50 MG 1 tablet Orally Once a day; Duration: 30 day(s) Not-Taking Voltaren 1 % as directed Transder mal apply bid to right foot; Duration: 30 days Not-Taki ng Voltaren 1 % as directed Transder mal apply bid to right foot; Duration: 30 days Not-Taki ng Lansoprazole Not-Binu ing Xarelto Not-Taking Vitamin D3 1000 UNIT 1 tablet Orally Onc e a day; Duration: 30 day(s) Active Ondansetron HCl Not- Taking Voltaren 1 % as directed Transder mal apply bid to right foot; Duration: 30 days Active Social History Tobacco Use: Social History Observation Description Date Details (start date - stop date) Never Smoker NA - NA Tobacco Use/Smoking Question Answer Notes Are you a: nonsmoker Additional Findings: Tobacco Non-User Current no n-smoker Alcohol Screen Question Answer Notes Did you have a drink containing alcohol in the p ast year? No Points 0 Interpretation Negative Tobacco use other than smoking: Question Answer Notes Are you an other tobacco user? No Problems Problem Type SNOMED Code ICD Code Onset Dates Problem Status W/U Status Risk Notes Problem Tinea unguium (318396263) Tinea unguium (B35.1) Active confirmed Plan Of Treatment Pending Test Test Name Order Date X ray : Foot, left 2V 04/20/2014 X ray : Foot, right 2V 04/20/2014 [id number] NAIL, 6 OR MORE 07/20/2014 [id number] NAIL, 6 OR MORE 10/05/2014 [id number] NAIL, 6 OR MORE 12/21/2014 [id number] NAIL, 6 OR MORE 03/01/2015 [id number] NAIL, 6 OR MORE 05/31/2015 [id number] NAIL, 6 OR MORE 08/30/2015 [id number] NAIL, 6 OR MORE 11/29/2015 [id number] NAIL, 6 OR MORE 02/28/2016 [id number] NAIL, 6 OR MORE 06/05/2016 [id number] NAIL, 6 OR MORE 08/28/2016 [id number] NAIL, 6 OR MORE 11/27/2016 [id number] NAIL, 6 OR MORE 02/19/2017 [id number] NAIL, 6 OR MORE 04/24/2017 [id number] NAIL, 6 OR MORE 07/23/2017 [id number] NAIL, 6 OR MORE 11/12/2017 [id number] NAIL, 6 OR MORE 02/11/2018 [id number] NAIL, 1-5 10/05/2014 [id number] NAIL, 1-5 07/20/2014 [id number] NAIL, 1-5 04/20/2014 42117, [id number]/INJECT, JOINT/BURSA 1 21733, [id number]- Neuroma/Injection 12/22/19 15 Insurance Providers Payer Name Payer Address Payer Phone Subscriber Number Group Number Insured Name Patient Relationship to Insured Coverage Start Date Coverage End Date Medicare National [employer] [address] [place] [address] [id number] Anna Mallory Self - patient is the insured [employer] [address] [place] [address] [id number] Anna Mallory Self - patient is the insured Medical (General) History Medical History History ICD Code osteoarthritis asthma Broken bones Cataracts Fibromyalgia Headaches High blood pressure Eczema Scarlet fever Rheumatic fever Sciatica Measles Mumps Chicken pox Joint implants/screws Transfusions Surgical History Surgery Date(Month/Year) bilateral hip replacement 08/2011 L - R shoulder surgery both nuroma on right foot removed 1990 tubes tied 1977 hysterectomy 1989 Right and left cataract surgery 08/2014 Hospitalization History Reason Date(Month/Year) HH low sodium 11/2016 [facility] panic attack 01/2017 [facility]- Flu 05/2017 [facility] carple tunnel surgery 05/2018
--- OUTSIDE RECORDS SUMMARY | 2024-11-03 15:40 | XMS_ITS | Encounter Summary ---
Author Organization [facility] Address [address] [place] [address] Phone Care Team Providers Care Baked Goods Stock Clerk Name Role Phone Rama Michele Primary Care Provider +1- [phone] Reason for Referral * Outpatient Procedure - Closed Specialty Diagnoses / Procedures Referred By Contfrancine t Referred To Contact Diagnoses Chronic diastolic heart failure Procedures Adult Echo TTE Rama Michele PA [address] [place] [address] Phone: tel: fax: Referral ID Status Reason Start Date Expiration Date Visits Re quested Visits Authorized [id number] Closed 02/06/2024 02/05/2025 1 1 Encounter Details Date Type Department Care Team (Latest Contact Info) Description 02/06/2024 Transcribe Orders Virtual Department [address] [place] [address] Rama Michele PA [address] [place] [id number] Chronic diastolic heart failure (Primary Dx) Social History Tobacco Use Types Packs/Day Years Used Date Smoking Tobacco: Never Smokeless Tobacco: Never Alcohol Use Standard Drinks/Week Comments Not Currently 0 (1 standard drink = 0.6 oz pur e alcohol) Education Answer Date Recorded Are you interested in more education? Not on kailey e 07/12/2022 Are you concerned about learning? Not on file 07/12/2022 No 07/12/2022 No 07/12/2022 Digital Access Answer Date Recorded No 08/10/2022 No 08/10/2022 Reliable internet access at home? Not on file 08/10/2022 Device with a working camera? Not on file Comments No Sex and Gender Information Value Date Recorded Sex Assigned at Female 06/28/2017 11:44 AM EDT Legal Sex Female 10:11 PM EDT Gender Identity Female 06/28/2017 11:44 AM EDT Sexual Orientation Straight 06/28/2017 11 :44 AM EDT documented as of this encounter Plan of Treatment Not on file documented as of this encounter Results * TTE COMPREHENSIVE (03/01/2024 12:08 PM EST) Body Surface Area 1.88 m2 Height 158 cm Weight 88 kg Systolic BP 122 mmHg Diastolic BP 78 mmHg Interventricular Septum Thickness 9 6 - 11 mm Left Ventricle Internal Diameter End Diastole 39 37 - 52 mm Left Ventricle Internal Diameter End Systole 31 <35 mm Left Ventricular Outflow Tract Diameter 18.0 mm LVOT VTI REST 135.0 mm Left Ventricular Outflow Tract Velocity 0.8 m/s Left Ventricular Outflow Tract Gradient at Rest 3 mmHg Left Ventricular Posterior Wall Thickness 10 6 - 11 mm Ejection Fraction 60 50 - 75 Percent Left Atrium Dimension Anterior-Posterior 36 15 - 40 mm Aortic Valve Mean Gradient 2 mmHg Aortic Valve Time Velocity Integral 157.0 mm Aortic Valve Peak Velocity 91.4 cm/s Aortic Valve Peak Gradient 3 mmHg Aortic Sinus Diameter 26 <40 mm Ascending Aorta Diameter 25 <36 mm Inferior Vena Cava Diameter 18 <21 mm Mitral Valve Deceleration Time 168 ms Mitral Valve A Wave Speed 90.0 cm/s Mitral Valve E Wave Speed 51.0 cm/s Right Ventricle Basal Diameter 18 25 - 41 mm Raw LV EF% 37 % Relative Wall Thickness 0.51 0.22 - 0.42 Aortic Valve Prosthetic Peak Gradient 3 mmHg Aortic Valve Prosthetic Mean Gradient 2 mmHg Aortic Valve Sinus Index by BSA 14 mm/m2 Aorta Sinus Index by Height 1.65 cm/m Aorta Sinus CSA index by Height 3.36 cm2/m Ascending Aorta Index 13 mm/m2 Asc Aorta CSA Index by Height 3.11 cm2/m Ascending Aorta Index 13 mm Aortic Sinus Index 14 mm Ascending Aorta Diameter 13 mm Aortic Valve Sinus Index 1 14 19 - 27 mm AO ASC DIAM BSA INDEX 13.30 Left Atrial Volume Index 18 16 - 34 mL/m2 GLS -16.5 % Left Ventricle Ea Lateral Wave Speed 7.0 cm/s Right Ventricle TAPSE 22 >=17 mm MV E/E' Tissue Velocity Lateral 7.29 Right Ventricle Pulse Doppler S Wave 10.9 >=9.5 cm/s Left Ventricle E Wave Speed 51.0 cm/s Left Ventricle A Wave Speed 90.0 cm/s MV E/A ratio 0.6 Left Ventricle Ea Septal Wave Speed 7.8 cm/s MV E/e' septal 6.54 Left Ventricle E/e' Average 6.9 Left Atrial Volume 34 mL Left Atrial Volume Index by Height 22 mL/m Echo E/Ea 6.54 Anatomical Region Laterality Modality Heart Ultrasound Narrative 03/02/2024 6:59 AM EST Images from the original result were not included. 1. This patient was imaged during normal sinus rhythm. The estimated ejection fraction is 60 to 65%. The longitudinal strain is -16.5% which is minimally reduced. There are no wall motion abnormalities and left ventricular thickness is normal. Diastolic function appears to be normal. 2. Normal RV size and function. 3. Trileaflet aortic valve with no evidence of aortic stenosis, the ascending aortic root is normal size. 4. No mitral and no tricuspid insufficiency. 5. Normal pericardium and when compared to the prior echocardiogram done in 2017, no significant change. Left Ventricle The left ventricle is normal in size. There is normal wall thickness. There is normal left ventricular systolic function. The LV ejection fraction is 60% (calculated via biplane measurement). Average global longitudinal strain (GLS) is --16.5% (reduced), as measured on [employer]erthi software platform. There are no wall motion abnormalities. LV diastolic function appears within normal limits for age. The E/A ratio is 0.6. The e' septal wave velocity is 7.8 cm/s. The e' lateral wave velocity is 7.0 cm/s. The average E/e' ratio is 6.9. Right Ventricle The right ventricle is normal in size. There is normal right ventricular systolic function. TAPSE is 22 mm. RV S' wave is 10.9 cm/s. Left Atrium The left atrium is normal in size. The left atrial volume index by BSA is 18 mL/m2. Right Atrium The right atrium is normal in size. The IVC is normal in size with normal inspiratory collapse. Mitral Valve The mitral valve appears normal. There is no mitral stenosis. There is no mitral regurgitation. Tricuspid Valve The tricuspid valve appears normal. There is no tricuspid stenosis. There is no tricuspid regurgitation. RV systolic pressure could not be estimated due to insufficient TR Doppler envelope. Aortic Valve The aortic valve is tricuspid. There is mild leaflet thickening. There is no aortic stenosis. There is no aortic regurgitation. The visualized portions of the thoracic aorta appear normal in size. Pulmonic Valve The pulmonic valve appears normal. There is no pulmonic stenosis. There is no pulmonic regurgitation. Pericardium There is no pericardial effusion. General Findings The image quality was fair (3). Due to body habitus. Strain performed. Technique(s) used in the evaluation: Color flow Doppler and Spectral Doppler. The predominant rhythm during the study was sinus. Comparison Findings Compared to prior TTE on 02/28/2017, IAS/IVS The interatrial septum appears normal. us Rama MANCILLA CV ECHO ORDERABLES Final R esult documented in this encounter Visit Diagnoses Diagnosis Chronic diastolic heart failure- Primary Chronic diastolic heart failure documented in this encounter Care Teams Baked Goods Stock Clerk Relationship Specialty Start Date End Date Rama Michele PA [address] [place] [id number] PCP - General Press Operator Automatic 04/27/20 documented as of this encounter Additional Source Comments The information contained in this document represents components of the legal health record. It is not the complete legal health record.[facility]
--- OUTSIDE RECORDS SUMMARY | 2024-11-03 15:40 | XMS_ITS | Clinical Summary ---
Author Organization [facility] [place] [address] Care Team Providers Care Engineer Intern Name Role Phone None Primary Care Provider Unavailabl e Social History Tobacco Use Types Packs/Day Years Used Date Smoking Tobacco: Never Assessed Comments Unknown Sex and Gender Information Value Date Recorded Sex Assigned at Not on file Legal Sex Female 12:25 PM EDT Gender Identity Not on file Sexual Orientation Not on file Plan of Treatment Health Maintenance Due Date Last Done Comments Tetanus/Diphtheria/Pertussis Vaccines (1 - Tdap) 01/27 Pneumoccocal Vaccine: 50+ (1 of 1 - PCV) 01/28/1992 Zoster vaccine (1 of 2) 01/28/1992 Advance Directive 1997 Bone Density Scan 2007 RSV Vaccine (1 - 1-dose 75+ series) 2017 Covid-19 Vaccine ( season) 2023 Influenza (Flu) vaccine (1 o f 1 - Influenza standard series) 11/15/2024 Care Teams Engineer Intern Relationship Specialty Start Date End Date None None PCP - General 09/30/13
[2024-11-03 16:57] LABS: Resp Syncy Virus RNA Qual PCR NEGATIVE (Negative); SARS COV2 PCR INHOUSE NEGATIVE (Negative)
[2024-11-03 17:39] VITALS: BP 130/75; PULSE 83; RESP 15; TEMP 36.2; O2SAT 97
== END 2024-11-03 17:39 ==
PROVIDERS: Registered Nurse Emergency; Emergency Provider Emergency Medicine
DX: R06.02 Shortness of breath (principal); F41.9 Anxiety disorder, unspecified; R00.0 Tachycardia, unspecified; R60.0 Localized edema; I45.10 Unspecified right bundle-branch block; Z79.899 Other long term (current) drug therapy; Z03.818 Encounter for observation for suspected exposure to other biological agents ruled out
CPT/HCPCS: 36415; 71046; 80053; 81001; 83735; 83880; 84484; 85025; 85610; 87086; 87637; 93005; 93971; 99284; 99285

== ENCOUNTER → 2024-11-03 12:29 | Outpatient (BNV) | payer MEDICARE, SELFPAY | PROVIDERS: Emergency Provider Emergency Medicine; Visit Provider Internal Medicine Cardiovascular Disease | DX: I45.10 Unspecified right bundle-branch block (principal) | CPT/HCPCS: 93010 ==

== ENCOUNTER → 2024-11-03 12:29 | Outpatient (BNV) | payer MEDICARE, SELFPAY | PROVIDERS: Emergency Provider Emergency Medicine; Visit Provider Radiology Diagnostic Radiology | DX: R06.00 Dyspnea, unspecified (principal) | CPT/HCPCS: 71046 ==

== ENCOUNTER 2024-12-01 04:46 | Emergency (ER) | payer MEDICARE, SELFPAY ==
--- NOTE | ~2024-12-01 | CT_ITS ---
EXAMINATION: CT LUMBAR SPINE WITHOUT CONTRAST CLINICAL INFORMATION: Fall, low back pain. COMPARISON: None available. TECHNIQUE: This CT examination was performed using dose optimization techniques as appropriate, variously including the following: *Automated exposure control *Adjustment of mA and/or kV according to patient size (this includes techniques or standardized protocols for targeted exams where dose is matched to indication/reason for exam; i.e. extremities or head) *Use of iterative reconstruction technique FINDINGS: Alignment: Moderate levocurvature of the lumbar spine. Grade 1 retrolisthesis of T11 on T12, T12 on L1, and L1 on L2. Mild grade 1 anterolisthesis of L3 on L4. Grade 2 anterolisthesis of L5 and S1. Vertebrae: No compression fractures. Bilateral pars defect of L5. Prominent facet arthropathy at multiple levels, more prominent on the right side. Posterior elements appear intact. Intervertebral discs: Loss of disc height in the lower thoracic spine, L1-2 and L5-S1. Soft tissues: Prevertebral and posterior paraspinal soft tissues are unremarkable. Other findings: Vascular calcifications. There are 2 right proximal ureteral stones, measuring about 0.6 cm; the distal one appears to results in mild proximal hydroureteronephrosis (5:64, 8:11). Multiple bilateral nonobstructive renal stones. Findings by level: Severe spinal canal stenosis at L3-L4. Severe neuroforaminal stenosis on the right at T12-L1, L1-2, L2-L3, and L3-L4. CT/CT lumbar spine wo IV con IMPRESSION: 1. No acute compression fractures. 2. Obstructive right proximal ureteral stone measuring 0.6 cm results in mild proximal hydroureteronephrosis. Multiple additional bilateral nonobstructing renal/ureteral stones. 3. Advanced multilevel degenerative changes. Electronically signed by: Issac Garcia MD 12/01/2024 08:57 AM EDT RP
--- NOTE | ~2024-12-01 | CT_ITS ---
EXAMINATION: CT HEAD WITHOUT IV CONTRAST HISTORY: Fall; Neck pain; ? Head Strike. TECHNIQUE: Unenhanced helical CT of the head was performed per standard departmental protocol. Coronal and sagittal reformats of the head were also evaluated. One or more of the following techniques was used for dose reduction: Automated exposure control, adjustment of the mA and/or kV according to patient size, use of iterative reconstruction technique. DLP: 838 mGy-cm COMPARISON: Comparison is made with the prior examination dated 08/17/2022. FINDINGS: BRAIN: There is diffuse prominence of the ventricular system and cortical sulci, consistent with atrophy. Periventricular and subcortical white matter hypodensities are noted which are nonspecific, but often seen in the setting of small vessel ischemic disease. There is no mass effect or midline shift. No intra- or extra-axial fluid collections are identified. SINUSES: The visualized paranasal sinuses are clear. The mastoid air cells and middle ear cavities are well pneumatized. ORBITS: The visualized orbits are unremarkable. BONES/SOFT TISSUES: The extracranial soft tissues are unremarkable. The calvarium is intact. No suspicious lytic or sclerotic lesions. CT/CT head/brain wo IV con IMPRESSION: No acute intracranial abnormality. Electronically signed by: Chester Little MD 12/01/2024 08:03 AM EDT
--- NOTE | ~2024-12-01 | XR_ITS ---
CLINICAL HISTORY: cough; weakness 2 view chest x-ray Comparison: CR/SR - XR CHEST 2 VIEWS - 11/03/24 13:03 EDT Findings: The lungs are clear. Heart size is normal. Severe degenerative changes are seen in bilateral glenohumeral joints. No acute osseous abnormality is identified. IMPRESSION: No acute cardiopulmonary abnormality. This document has been electronically signed by: Mayuri Herrera on 12/01/2024 07:24:30
--- NOTE | ~2024-12-01 | CT_ITS ---
EXAMINATION: CT CERVICAL SPINE WITHOUT IV CONTRAST HISTORY: Fall; Neck Pain. TECHNIQUE: Helical CT of the cervical spine was performed per standard departmental protocol. Coronal and sagittal reformatted images were also evaluated. One or more of the following techniques was used for dose reduction: Automated exposure control, adjustment of the mA and/or kV according to patient size, use of iterative reconstruction technique. DLP: 351 mGy-cm COMPARISON: Comparison is made with the prior examination dated 08/17/2022. FINDINGS: CERVICAL SPINE: The vertebral bodies maintain normal height and alignment without evidence of fracture or subluxation. There is diffuse severe degenerative disc disease with disc space narrowing and osteophyte formation. There is diffuse facet osteoarthritis and uncovertebral joint hypertrophy causing multilevel bilateral neural foraminal stenosis. Evaluation for disc pathology is limited by lack of intrathecal contrast material, however. BRAIN: The visualized portion of the brain is unremarkable. SINUSES: The visualized paranasal sinuses, mastoid air cells and middle ear cavities are unremarkable. SOFT TISSUES: The visualized paraspinal soft tissues are unremarkable. CT/CT cervical spine wo IV con IMPRESSION: No evidence of fracture or malalignment of the cervical spine. Degenerative changes as described. Electronically signed by: Chester Little MD 12/01/2024 08:06 AM EDT
[2024-12-01 04:51] VITALS: BP 124/63; BP 142/92; PULSE 88; RESP 20; TEMP 36.8; O2SAT 98; O2SAT 99; BMI 38.0
--- OUTSIDE RECORDS SUMMARY | 2024-12-01 05:29 | XMS_ITS | Encounter Summary ---
Author Organization [facility] Address [address] [place] [address] Phone Care Team Providers Care Ring Striker Name Role Phone Rama Michele Primary Care Provider +1- [phone] Reason for Referral * MRI/CAT Scan - Closed Specialty Diagnoses / Procedures Referred By Contac t Referred To Contact Radiology Diagnoses Nonintractable headache, unspecified chronicity pattern, unspecified headache type Procedures CT Head Rama Michele PA [address] [place] [address] Phone: tel: fax: Referral ID Status Reason Start Date Expiration Date Visits Re quested Visits Authorized [id number] Closed 02/17/2024 02/16/2025 1 1 Encounter Details Date Type Department Care Team (Latest Contact Info) Description 02/17/2024 Transcribe Orders Virtual Department [address] [place] [address] Rama Michele PA [address] [place] [address] Nonintractable headache, unspecified chronicity pattern, unspecified headache type (Primary Dx) Social History Tobacco Use Types [...] documented as of this encounter Results * CT HEAD WITHOUT CONTRAST (02/29/2024 8:43 AM EST) Anatomical Region Laterality Modality Head Computed Tomogra phy 03/01/2024 3:05 PM EST Impressions 03/01/2024 3:16 PM EST No acute intracranial findings. Narrative 03/01/2024 3:[address] HEAD WITHOUT CONTRAST Referring clinician's provided indication for this examination in Epic: Outside Radiology Order; headache TECHNIQUE: Multidetector-row CT of the head was performed without intravenous contrast using tailored dose modulation techniques. Images were reconstructed in the axial, coronal, and sagittal planes. COMPARISON: CT HEAD WITHOUT CONTRAST FINDINGS: Brain Parenchyma: No midline shift, mass effect, parenchymal hemorrhage, or evidence of acute territorial infarct. There are areas of hypodensity in the periventricular white matter, likely a manifestation of chronic small vessel disease. Ventricular System and Extra-Axial Spaces: The ventricles and sulci are prominent. No extra-axial fluid collections. Basilar cisterns are patent. No hydrocephalus. Osseous and Extracranial Structures: No significant paranasal sinus disease. No orbital abnormality. Status post bilateral cataract surgery. Procedure Note Niraj Silveira MD, PhD - 03/01/2024 CT HEAD WITHOUT CONTRAST Referring clinician's provided indication for this examination in Epic:Outside Radiology Order; headache TECHNIQUE: Multidetector-row CT of the head was performed withoutintravenous contrast using tailored dose modulation techniques. Imageswere reconstructed in the axial, coronal, and sagittal planes. COMPARISON: CT HEAD WITHOUT CONTRAST FINDINGS: Brain Parenchyma: No midline shift, mass effect, parenchymal hemorrhage,or evidence of acute territorial infarct. There are areas of hypodensityin the periventricular white matter, likely a manifestation of chronicsmall vessel disease. Ventricular System and Extra-Axial Spaces: The ventricles and sulci areprominent. No extra-axial fluid collections. Basilar cisterns are patent.No hydrocephalus. Osseous and Extracranial Structures: No significant paranasal sinusdisease. No orbital abnormality. Status post bilateral cataract surgery. IMPRESSION: No acute intracranial findings. Rama MANCILLA IMG CT HEAD/NECK Final Res ult documented in this encounter Visit Diagnoses Diagnosis Nonintractable headache, unspecified chronicity pattern, unspecified headache type- Primary Nonintractable headache, unspecified chronicity pattern, unspecified headache type documented in this encounter Care Teams Ring Striker Relationship Specialty Start Date End Date Rama Michele PA [address] [place] [phone] PCP - General Cyber Security Analyst 04/27/20 documented as of this encounter Additional Source Comments The information contained in this document represents components of the legal health record. It is not the complete legal health record.[facility]
--- OUTSIDE RECORDS SUMMARY | 2024-12-01 05:29 | XMS_ITS | Encounter Summary ---
Author Organization [facility] Address [address] [place] [address] Phone Care Team Providers Care Caser Name Role Phone Rama Michele Primary Care Provider +1- [phone] Encounter Details Date Type Department Care Team (Late st Contact Info) Description 05/23/2020 Ancillary Orders [address] [id number] Charley Boateng PA-C [address] [place] [address] Orthopedics & Sports Medicine, [facility] [place] [address] [email or web address] Wrist pain, acute, left Social History Tobacco Use Types Packs/Day Years Used Date Smoking Tobacco: Never Smokeless Tobacco: Never Alcohol Use Standard Drinks/Week Comments Not Currently 0 (1 standard drink = 0.6 oz pur e alcohol) Comments No Sex and Gender Information Value Date Recorded Sex Assigned at Female 06/28/2017 11:44 AM EDT Legal Sex Female 10:11 PM EDT Gender Identity Female 06/28/2017 11:44 AM EDT Sexual Orientation Straight 06/28/2017 11 :44 AM EDT documented as of this encounter Plan of Treatment Not on file documented as of this encounter Results * XR WRIST 2 VIEWS (LEFT) (05/23/2020 3:41 PM EST) Narrative SYSTEMGENERATED, DOCUMENTATION - 05/23/2020 3:41 PM EST This image report has been auto-finalized and has not been read by a Radiologist. Interpretation has been included in the provider encounter note for this date of service. Charley Boateng PA-C IMG XR UPPER EXTREMI TY Final Result documented in this encounter Visit Diagnoses Diagnosis Wrist pain, acute, left Wrist pain, acute, left documented in this encounter Additional Health Concerns Infection Onset Date Last Indicated Resolved Time CoV-Exposed Comment:Added per Home Health documentation 01/19/2022 01/19/2022 01/30/2022 6:[address] CoV-Presumed Comment:Added per Home Health documentation 01/22/2022 01/22/2022 02/11/2022 1:[address] documented as of this encounter Care Teams Caser Relationship Specialty Start Date End Date Rama Michele PA [address] [place] [phone] PCP - General Braiding Machine Operator 04/27/20 documented as of this encounter Additional Source Comments The information contained in this document represents components of the legal health record. It is not the complete legal health record.[facility]
--- OUTSIDE RECORDS SUMMARY | 2024-12-01 05:29 | XMS_ITS | Encounter Summary ---
Author Organization [facility] Address [address] [place], [place] [id number] Phone Care Team Providers Care Special Projects Coordinator Name Role Phone Rama Michele Primary Care Provider +1- [phone] Reason for Referral * MRI/CAT Scan - Closed Specialty Diagnoses / Procedures Referred By Contac t Referred To Contact Radiology Diagnoses Left arm pain Procedures CT Humerus (Left) Khushi Albert NP [address] [place] [address] Phone: tel: fax: Referral ID Status Reason Start Date Expiration Date Visits Re quested Visits Authorized [id number] Closed 08/29/2022 1 1 Encounter Details Date Type Department Care Team (Late st Contact Info) Description 08/29/2022 Transcribe Orders Virtual Department [address] [place] [address] Khushi Albert NP [address] [place] [phone] Left arm pain (Primary Dx) Social History Tobacco Use Types [...] as of this encounter Results * CT HUMERUS WITHOUT CONTRAST (LEFT) (09/23/2022 6:49 PM EDT) Anatomical Region Laterality Modality Arm Left Computed Tomogra phy 09/28/2022 5:10 PM EDT Impressions 09/28/2022 5:18 PM EDT 1. Chronic, large, retracted rotator cuff tear. 2. Advanced arthritic change about glenohumeral joint. 3. No aggressive focal bony lesion. No fracture. Narrative 09/28/2022 5:[address] HUMERUS WITHOUT CONTRAST (LEFT) Indication: Persistent left shoulder/upper extremity pain. TECHNIQUE: Multidetector-row CT of the humerus, without intravenous contrast using dose-modulation techniques. Images were reconstructed in the axial, coronal, and sagittal planes. COMPARISON: Left shoulder x-rays 05/14/2020 FINDINGS: Advanced arthritic change present about the right shoulder glenohumeral joint. Extensive remodeling of the bony glenoid which has a flattened/widened appearance articulating with flattened medial humeral head with large inferior medial spur. Additionally there is flattening of the superior humeral head which has intimate contact with the inferior surface of the acromium, apparent chronic rotator cuff tear. Remodeling of undersurface of the acromion. Likely torn and retracted tendon of the long head of the biceps. Capsular thickening. No drainable effusion. No fracture. No aggressive focal bony lesion. Procedure Note Josue Nelson MD - 09/28/2022 CT HUMERUS WITHOUT CONTRAST (LEFT) Indication: Persistent left shoulder/upper extremity pain. TECHNIQUE: Multidetector-row CT of the humerus, without intravenouscontrast using dose-modulation techniques. Images were reconstructed inthe axial, coronal, and sagittal planes. COMPARISON: Left shoulder x-rays 05/14/2020 FINDINGS: Advanced arthritic change present about the right shoulder glenohumeraljoint. Extensive remodeling of the bony glenoid which has aflattened/widened appearance articulating with flattened medial humeralhead with large inferior medial spur. Additionally there is flattening ofthe superior humeral head which has intimate contact with the inferiorsurface of the acromium, apparent chronic rotator cuff tear. Remodeling ofundersurface of the acromion. Likely torn and retracted tendon of the longhead of the biceps. Capsular thickening. No drainable effusion. No fracture. No aggressivefocal bony lesion. IMPRESSION: 1. Chronic, large, retracted rotator cuff tear. 2. Advanced arthritic change about glenohumeral joint. 3. No aggressive focal bony lesion. No fracture. Khushi Albert BATHROOM TILING PROFESSIONAL IMG CT EXTREMITY Final Result documented in this encounter Visit Diagnoses Diagnosis Left arm pain- Primary Pain in soft tissues of limb Left arm pain Pain in soft tissues of limb documented in this encounter Care Teams Special Projects Coordinator Relationship Specialty Start Date End Date Rama Michele PA [address] [place] [phone] PCP - General Director Of Catering Sales 04/27/20 documented as of this encounter Additional Source Comments The information contained in this document represents components of the legal health record. It is not the complete legal health record.[facility]
--- OUTSIDE RECORDS SUMMARY | 2024-12-01 05:29 | XMS_ITS | Encounter Summary ---
Author Organization [facility] Address [address] [place], [place] [phone] Phone Care Team Providers Care Inspector Shells Name Role Phone Rama Michele Primary Care Provider +1- [phone] Encounter Details Date Type Department Care Team (Late st Contact Info) Description 07/26/2020 Procedure Pass [facility], [address] [address] Social History Tobacco Use Types Packs/Day Years [...] on file documented as of this encounter Visit Diagnoses Not on filedocumented in this encounter Additional Health Concerns Infection Onset Date Last Indicated Resolved Time CoV-Exposed Comment:Added per Home Health documentation 01/19/2022 01/19/2022 01/30/2022 6:[address] CoV-Presumed Comment:Added per Home Health documentation 01/22/2022 01/22/2022 02/11/2022 1:[address] documented as of this encounter Care Teams Inspector Shells Relationship Specialty Start Date End Date Rama Michele PA [address] [place] [phone] PCP - General Bakery Assistant 04/27/20 documented as of this encounter Additional Source Comments The information contained in this document represents components of the legal health record. It is not the complete legal health record.[facility]
--- OUTSIDE RECORDS SUMMARY | 2024-12-01 05:29 | XMS_ITS | Encounter Summary ---
Author Organization [facility] Address [address] [place] [address] Phone Care Team Providers Care Animal Control Licensing Worker Name Role Phone Rama Michele Primary Care Provider +1- [phone] Encounter Details Date Type Department Care Team (Latest Contact Info) Description 08/22/2024 Transcribe Orders Virtual Department [address] [place] [address] Rama Michele PA [address] [place] [address] [place] [address] Asymptomatic menopausal state (Primary Dx) Social History Tobacco Use Types [...] documented as of this encounter Visit Diagnoses Diagnosis Asymptomatic menopausal state- Primary documented in this encounter Care Teams Animal Control Licensing Worker Relationship Specialty Start Date End Date Rama Michele PA [address] [place] [phone] PCP - General Catcher Helper 04/27/20 documented as of this encounter Additional Source Comments The information contained in this document represents components of the legal health record. It is not the complete legal health record.[facility]
--- OUTSIDE RECORDS SUMMARY | 2024-12-01 05:29 | XMS_ITS | Encounter Summary ---
Author Organization [facility] Address [address] [place] [address] Phone Care Team Providers Care Resident Care Director Name Role Phone Rama Michele Primary Care Provider +1- [phone] Encounter Details Date Type Department Care Team (Late st Contact Info) Description 02/06/2024 Procedure Pass [facility] [address] [place] [address] Social History Tobacco Use Types Packs/Day Years [...] Diagnoses Not on filedocumented in this encounter Care Teams Resident Care Director Relationship Specialty Start Date End Date Rama Michele PA [address] [place] [address] [phone] PCP - General Forest Supervisor 04/27/20 documented as of this encounter Additional Source Comments The information contained in this document represents components of the legal health record. It is not the complete legal health record.[facility]
--- OUTSIDE RECORDS SUMMARY | 2024-12-01 05:29 | XMS_ITS | Encounter Summary ---
Author Organization [facility] Address [address] [place], [place] [address] Phone Care Team Providers Care Soapstoner Name Role Phone Rama Michele Primary Care Provider +1- [phone] Encounter Details Date Type Department Care Team (Late st Contact Info) Description 01/15/2022 Procedure Pass [facility], Ct Scan - [address] [address] Social History Tobacco Use Types Packs/Day Years [...] AM EDT documented as of this encounter Functional Status * Calculated C-SSRS Risk Score (Lifetime/Recent) Answer Date of Assessment Author No Risk Indicated 01/15/2022 4:05 PM EDT Jerica Gates RN * [place] Suicide Severity Rating Scale (Screener/Recent Self-Report) Question Answer Date of Assessment Author 1. Wish to be (Past 1 Month) No 01/15/2022 4:05 PM EDT Jerica Gates RN 2. Non-Specific Active Suici purvi Thoughts (Past 1 Month) No 01/15/2022 4:05 PM EDT Sejal Gates RN 6. Suicidal Behavior (Lifetime) No 4:05 PM EDJerica Wei RN documented as of this encounter Plan of [...] documented as of this encounter Care Teams Soapstoner Relationship Specialty Start Date End Date Rama Michele PA [address] [place] [address] PCP - General Hog Driver 04/27/20 documented as of this encounter Additional Source Comments The information contained in this document represents components of the legal health record. It is not the complete legal health record.[facility]
--- OUTSIDE RECORDS SUMMARY | 2024-12-01 05:29 | XMS_ITS | Encounter Summary ---
Author Organization [facility] Address [address] [place] [address] Phone Care Team Providers Care Supervisor Slitting And Shipping Name Role Phone Rama Michele Primary Care Provider +1- [phone] Encounter Details Date Type Department Care Team (Late st Contact Info) Description 05/23/2020 Ancillary Orders [facility]ics & Sports Medicine [address] [place] [address] [id number] Charley Boateng PA-C [address] [place] [address] Orthopedics & Sports Medicine, [place] [address] [email or web address] Social History Tobacco Use Types Packs/Day Years [...] documented as of this encounter Care Teams Supervisor Slitting And Shipping Relationship Specialty Start Date End Date Rama Michele PA [address] [place] [address] PCP - General Guest Services Officer 04/27/20 documented as of this encounter Additional Source Comments The information contained in this document represents components of the legal health record. It is not the complete legal health record.[facility]
--- OUTSIDE RECORDS SUMMARY | 2024-12-01 05:29 | XMS_ITS | Encounter Summary ---
Author Organization [facility] Address [address] [place] [address] Phone Care Team Providers Care Hop Separator Name Role Phone Brayden Johnson MD Primary Care Prov ider Clarice Wilkerson MD Primary Care Provider +1- [phone] Rama Michele Primary Care Provider +- [phone] Encounter Details Date Type Department Care Team (Latest Contact Info) Description 11/26/2019 Transcribe Orders Virtual Department [address] [place] [address] Martina Kay PA-C [address] [facility] [place] [place] [address] [email or web address] Dysphagia, pharyngoesophageal phase (Primary Dx) Social History Tobacco Use Types Packs/Day Years Used Date Smoking Tobacco: Never Smokeless Tobacco: Never Alcohol Use Standard Drinks/Week Comments Yes 0 (1 standard drink = 0.6 oz pur e alcohol) Comments Unknown Sex and Gender Information Value Date Recorded Sex Assigned at Female 06/28/2017 11:44 AM EDT Legal Sex Female 10:11 PM EDT Gender Identity Female 06/28/2017 11:44 AM EDT Sexual Orientation Straight 06/28/2017 11 :44 AM EDT documented as of this encounter Plan of Treatment Not on file documented as of this encounter Results * FL BARIUM SWALLOW ESOPHAGRAM DOUBLE CONTRAST (12/01/2019 9:09 AM EDT) Anatomical Region Laterality Modality Chest Computed Radiogr aphy 12/01/2019 9:15 AM EDT Impressions 12/01/2019 9:21 AM EDT Disordered thoracic esophageal motility with small hiatal hernia but no mechanical obstructing lesion or significant hypopharyngeal dysmotility demonstrated. FLUOROSCOPY TIME: 1 min. 18 sec; 103 IMAGES/FRAMES POS - [id number] Narrative 12/01/2019 9:21 AM EDT COMPARISON: None FINDINGS: A preliminary lateral view of the neck reveals lower cervical degenerative disc changes with small ventral osteophytes present. A single contrast study was performed and recorded on spot, rapid sequence, and overhead views. Following ingestion of contrast mixture deglutition was assessed fluoroscopically. There was undersurface coating of the epiglottis but no flank lilly aspiration or epiglottic penetration were identified. No cricopharyngeal achalasia. Thoracic esophagus is slightly tortuous with multiple tertiary contractions and episodes of reversed peristalsis demonstrated. No fixed stricture or gross mucosal ulceration were identified. No spontaneous gastroesophageal reflux was noted. A small hiatal hernia was demonstrated during a prone Valsalva maneuver. Procedure Note Greg Gaona MD - 12/01/2019 COMPARISON: None FINDINGS: A preliminary lateral view of the neck reveals lower cervical degenerativedisc changes with small ventral osteophytes present. A single contraststudy was performed and recorded on spot, rapid sequence, and overheadviews. Following ingestion of contrast mixture deglutition was assessedfluoroscopically. There was undersurface coating of the epiglottis but noflank lilly aspiration or epiglottic penetration were identified. Nocricopharyngeal achalasia. Thoracic esophagus is slightly tortuous withmultiple tertiary contractions and episodes of reversed peristalsisdemonstrated. No fixed stricture or gross mucosal ulceration wereidentified. No spontaneous gastroesophageal reflux was noted. A smallhiatal hernia was demonstrated during a prone Valsalva maneuver. IMPRESSION: Disordered thoracic esophageal motility with small hiatal hernia but nomechanical obstructing lesion or significant hypopharyngeal dysmotilitydemonstrated. FLUOROSCOPY TIME: 1 min. 18 sec; 103 IMAGES/FRAMES POS - [id number] Martina Kay PA-C IMG FL MISC Final Result documented in this encounter Visit Diagnoses Diagnosis Dysphagia, pharyngoesophageal phase- Primary Dysphagia, pharyngoesophageal phase documented in this encounter Additional Health Concerns Infection Onset Date Last Indicated Resolved Time CoV-Exposed Comment:Added per Home Health documentation 01/19/2022 01/19/2022 01/30/2022 6:[address] CoV-Presumed Comment:Added per Home Health documentation 01/22/2022 01/22/2022 02/11/2022 1:[address] documented as of this encounter Care Teams Hop Separator Relationship Specialty Start Date End Date Brayden Johnson MD PCP - General 01/02/17 Clarice Wilkerson MD PCP - General Family Medicine 12/28/19 04/26/20 Rama Michele PA [address] [place] [address] PCP - General Table Runner 04/27/20 documented as of this encounter Additional Source Comments The information contained in this document represents components of the legal health record. It is not the complete legal health record.[facility]
--- OUTSIDE RECORDS SUMMARY | 2024-12-01 05:29 | XMS_ITS | Patient Health Record ---
Author Organization [facility] Address [address] [place] [address] Care Team Providers Care Putty Patcher Name Role Phone Michele, Rama Primary Care Provider Alexander Morocho Unavailable [phone] Allergies Allergen (clinical drug ingredient) Drug/Non Drug [...] Orally Twic e a day Not-Taking Nystop 453848 UNIT/GM Externally Twice a day Active Multi [...] Clobetasol Propionate Not-Taking Clotrimazole-Betamethason e Not-Taking Nystatin-Triamcinolone 684491-2.1 UNIT/GM Externally Twice a day Active Fluocinonide [...] W/U Status Risk Notes Problem Tinea unguium (775235252) Tinea unguium (B35.1) Active confirmed Plan Of Treatment Pending Test Test Name Order Date X ray : Foot, left 2V 04/20/2014 X ray : Foot, right 2V 04/20/2014 [id number] NAIL, 6 OR MORE 07/20/2014 [id number] NAIL, 6 OR MORE 10/05/2014 [id number] NAIL, 6 OR MORE 12/21/2014 [id number] NAIL, 6 OR MORE 03/01/2015 [id number] NAIL, 6 OR MORE 05/31/2015 [id number] NAIL, 6 OR MORE 08/30/2015 [id number] NAIL, 6 OR MORE 11/29/2015 [id number] NAIL, 6 OR MORE 02/28/2016 [id number] NAIL, 6 OR MORE 06/05/2016 [id number] NAIL, 6 OR MORE 08/28/2016 [id number] NAIL, 6 OR MORE 11/27/2016 [id number] NAIL, 6 OR MORE 02/19/2017 [id number] NAIL, 6 OR MORE 04/24/2017 [id number] NAIL, 6 OR MORE 07/23/2017 [id number] NAIL, 6 OR MORE 11/12/2017 [id number] NAIL, 6 OR MORE 02/11/2018 [id number] NAIL, 1-5 10/05/2014 [id number] NAIL, 1-5 07/20/2014 [id number] NAIL, 1-5 04/20/2014 50611, P3633-GXXLW/INJECT, JOINT/BURSA 1 82277, J0702- Neuroma/Injection 12/22/19 15 Insurance Providers Payer Name Payer Address Payer Phone Subscriber Number Group Number Insured Name Patient Relationship to Insured Coverage Start Date Coverage End Date Medicare National Govt S[employer] [address] [place] [address] [id number] Anna Mallory Self - patient is the insured [employer] [address] [place] [address] [id number] Anna Mallory Self - patient is [...] History Reason Date(Month/Year) HH low sodium 11/2016 [facility] ER panic attack 01/2017 [facility]- Flu 05/2017 [facility] carple tunnel surgery 05/2018
--- OUTSIDE RECORDS SUMMARY | 2024-12-01 05:29 | XMS_ITS | Encounter Summary ---
Author Organization [facility] Address [address] [place] [address] Phone Care Team Providers Care Loom Changeover Operator Name Role Phone Rama Michele Primary Care Provider +1- [phone] Encounter Details Date Type Department Care Team (Late st Contact Info) Description 04/27/2020 Procedure Pass [facility] Endoscopy Admitting Dept Virtual Department [address] [place] [address] Social History Tobacco Use Types Packs/Day Years [...] Date of Assessment Author No Risk Indicated 04/29/2020 4:47 PM Kecia Urban RN * [place] Suicide Severity Rating Scale (Screener/Recent Self-Report) Question Answer Date of Assessment Author 1. Wish to be (Past 1 Month) No 04/29/2020 4:47 PM Lizbeth Parker RN 2. Non-Specific Active Suicidal Thoughts (Past 1 Month) No 04/29/2020 4:47 PM Lizbeth Parker RN 6. Suicidal Behavior (Lifetime) No 04/29/2020 4:47 PM EST Jaycee, Stac ie F, RN documented as of this encounter Plan [...] documented as of this encounter Care Teams Loom Changeover Operator Relationship Specialty Start Date End Date Rama Michele PA [address] [place] [address] PCP - General Exhibits Curator 04/27/20 documented as of this encounter Additional Source Comments The information contained in this document represents components of the legal health record. It is not the complete legal health record.[facility]
--- OUTSIDE RECORDS SUMMARY | 2024-12-01 05:29 | XMS_ITS | Encounter Summary ---
Author Organization [facility] Address [address] [place], [place] [address] Phone Care Team Providers Care Side Seam Machine Operator Name Role Phone Rama Michele Primary Care Provider +1- [phone] Reason for Referral * MRI/CAT Scan - Closed Specialty Diagnoses / Procedures Referred By Contac t Referred To Contact Radiology Diagnoses Dementia without behavioral disturbance, unspecified dementia type Procedures MRI Brain Bogdan Navarro MD, PhD Phone: tel: fax: [email or web address] Referral ID Status Reason Start Date Expiration Date Visits Re quested Visits Authorized Closed 07/26/2020 07/26/2021 1 1 Encounter Details Date Type Department Care Team (Latest Contact Info) Description 07/26/2020 Transcribe Orders Virtual Department [address] [place] [address] Bogdan Navarro MD, PhD [address] [place] [id number] [email or web address] Dementia without behavioral disturbance, unspecified dementia type (Primary Dx) Social History Tobacco Use [...] documented as of this encounter Results * MRI BRAIN WITHOUT CONTRAST (08/08/2020 10:27 AM EDT) Anatomical Region Laterality Modality Head Magnetic Resonan ce 08/08/2020 10:4 4 AM EDT Narrative 08/08/2020 10:56 AM EDT TECHNIQUE: MRI BRAIN WITHOUT CONTRAST CLINICAL HISTORY: Memory loss. Dementia. FINDINGS: The medulla oblongata is intact. There is severe involvement of the lower, mid and upper lyle by patchy confluent T2 hyperintense signal abnormality, without expansion, consistent with severe chronic ischemic change. Cerebral peduncles and dorsal mesencephalon are intact. The cerebellum demonstrates no evidence of infarction or other significant abnormality. No evidence of brainstem or cerebellar atrophy. Internal auditory canals have normal size and there are no mass lesions seen in the cerebellopontine angles. Flow-voids of major caliber intracranial vessels of posterior and anterior circulation are present. Supratentorially, there is moderate prominence of lateral and third ventricles in moderate diffuse prominence of cerebral cortical sulci, without lobar predominance, consistent with moderate age related central and cortical brain atrophy. No hydrocephalus. 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 Extensive patchy T2 hyperintense signal abnormality is seen throughout the level of the julio radiata. Numerous rounded and patchy T2 hyperintensities approaching the frontal parietal subcortical white matter. There is no evidence of acute or subacute cerebral infarction. There are no lacunar infarcts and post infarction regions of cerebral tissue loss. Scattered punctate and small patchy T2 hyperintensities are seen in the external capsules and also internal capsules and basal ganglia, also consistent with chronic ischemic changes. No evidence of subdural hematoma or other abnormal extracerebral fluid collection. Basal ganglia signal is normal. Bilateral aphakia. No evidence of mass or mucosal thickening in the paranasal sinuses. 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 No evidence of acute or subacute cerebral infarction. Severe chronic ischemic changes of the lyle. Moderate age related central and cortical brain atrophy. No hydrocephalus. Procedure Note Alex Pratt MD - 08/08/2020 TECHNIQUE: MRI BRAIN WITHOUT CONTRAST CLINICAL HISTORY: Memory loss. Dementia. FINDINGS: The medulla oblongata is intact. There is severe involvement of the lower, mid and upper lyle by patchyconfluent T2 hyperintense signal abnormality, without expansion,consistent with severe chronic ischemic change. Cerebral peduncles anddorsal mesencephalon are intact. The cerebellum demonstrates no evidence of infarction or other significantabnormality. No evidence of brainstem or cerebellar atrophy. Internal auditory canals have normal size and there are no mass lesionsseen in the cerebellopontine angles. Flow-voids of major caliber intracranial vessels of posterior and anteriorcirculation are present. Supratentorially, there is moderate prominence of lateral and thirdventricles in moderate diffuse prominence of cerebral cortical sulci,without lobar predominance, consistent with moderate age related centraland cortical brain atrophy. No hydrocephalus. There is severe patchy T2 hyperintense confluent signal abnormality of theperiventricular white matter and there is extensive involvement of thefrontoparietal white matter at the level of the centrum semiovale by largepatchy and rounded-confluent T2 hyperintense lesions, consistent withsevere chronic microangiopathic white matter ischemic disease. Extensivepatchy T2 hyperintense signal abnormality is seen throughout the level ofthe julio radiata. Numerous rounded and patchy T2 hyperintensities approaching the frontalparietal subcortical white matter. There is no evidence of acute or subacute cerebral infarction. There areno lacunar infarcts and post infarction regions of cerebral tissue loss. Scattered punctate and small patchy T2 hyperintensities are seen in theexternal capsules and also internal capsules and basal ganglia, alsoconsistent with chronic ischemic changes. No evidence of subdural hematoma or other abnormal extracerebral fluidcollection. Basal ganglia signal is normal. Bilateral aphakia. No evidence of mass or mucosal thickening in the paranasal sinuses. 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 No evidence of acute or subacute cerebral infarction. Severe chronic ischemic changes of the lyle. Moderate age related central and cortical brain atrophy. Nohydrocephalus. Bogdan Navarro MD, PhD IMG MR HEAD/NECK Final Result documented in this encounter Visit Diagnoses Diagnosis Dementia without behavioral disturbance, unspecified dementia type- Primary Dementia without behavioral disturbance, unspecified dementia type documented in this encounter Additional Health Concerns Infection Onset Date Last Indicated Resolved Time CoV-Exposed Comment:Added per Home Health documentation 01/19/2022 01/19/2022 01/30/2022 6:[address] CoV-Presumed Comment:Added per Home Health documentation 01/22/2022 01/22/2022 02/11/2022 1:[address] documented as of this encounter Care Teams Side Seam Machine Operator Relationship Specialty Start Date End Date Rama Michele PA [address] [place] [address] PCP - General Facilities Engineer 04/27/20 documented as of this encounter Additional Source Comments The information contained in this document represents components of the legal health record. It is not the complete legal health record.[facility]
--- OUTSIDE RECORDS SUMMARY | 2024-12-01 05:29 | XMS_ITS | Encounter Summary ---
Author Organization [facility] Address [address] [place] [address] [place] [address] Phone Care Team Providers Care Lockstitch Sleeve Setter Name Role Phone Brayden Johnson MD Primary Care Prov ider Calrice Wilkerson MD Primary Care Provider +1- [phone] Rama Michele Primary Care Provider + [phone] Encounter Details Date Type Department Care Team (Late st Contact Info) Description 11/21/2019 Procedure Pass [facility], Ct Scan - [address] [address] Social History Tobacco Use Types Packs/Day Years [...] documented as of this encounter Care Teams Lockstitch Sleeve Setter Relationship Specialty Start Date End Date Brayden Johnson MD PCP - General 01/02/17 Clarice Wilkerson MD PCP - General Family Medicine 12/28/19 04/26/20 Rama Michele PA [address] [place] [address] PCP - General Brush Holder Inspector 04/27/20 documented as of this encounter Additional Source Comments The information contained in this document represents components of the legal health record. It is not the complete legal health record.[facility]
--- OUTSIDE RECORDS SUMMARY | 2024-12-01 05:29 | XMS_ITS | Encounter Summary ---
Author Organization [facility] Address [address] [place] [address] Phone Care Team Providers Care Hydrochloric Area Supervisor Name Role Phone Rama Michele Primary Care Provider +1- [phone] Reason for Referral * Outpatient Procedure - Closed Specialty Diagnoses / Procedures Referred By Contfrancine t Referred To Contact Diagnoses Chronic diastolic heart failure Procedures Adult Echo TTE Rama Michele PA [address] [place] [address] Phone: tel: fax: Referral ID Status Reason Start Date Expiration Date Visits Re quested Visits Authorized [id number] Closed 02/06/2024 02/05/2025 1 1 Encounter Details Date Type Department Care Team (Latest Contact Info) Description 02/06/2024 Transcribe Orders Virtual Department [address] [place] [address] Rama Michele PA [address] [place] [id number] Chronic diastolic heart failure (Primary Dx) Social [...] failure documented in this encounter Care Teams Hydrochloric Area Supervisor Relationship Specialty Start Date End Date Rama Michele PA [address] [place] [address] PCP - General Assembler Dielectric Heater 04/27/20 documented as of this encounter Additional Source Comments The information contained in this document represents components of the legal health record. It is not the complete legal health record.[facility]
--- OUTSIDE RECORDS SUMMARY | 2024-12-01 05:29 | XMS_ITS | Encounter Summary ---
Author Organization [facility] Address [address] [place], [place] [address] Phone Care Team Providers Care Marble Cutter Operator Name Role Phone Rama Michele Primary Care Provider +1- [phone] Encounter Details Date Type Department Care Team (Late st Contact Info) Description 08/29/2022 Procedure Pass [facility], Ct Scan - [address] [address] Social History Tobacco Use Types Packs/Day Years [...] on filedocumented in this encounter Care Teams Marble Cutter Operator Relationship Specialty Start Date End Date Rama Michele PA [address] [place] [address] PCP - General Furnace Tender 04/27/20 documented as of this encounter Additional Source Comments The information contained in this document represents components of the legal health record. It is not the complete legal health record.[facility]
--- OUTSIDE RECORDS SUMMARY | 2024-12-01 05:29 | XMS_ITS | Encounter Summary ---
Author Organization [facility] Address [address] [place] [address] [place] [address] Phone Care Team Providers Care Bulk Materials Handling Plant Operator Name Role Phone Brayden Johnson MD Primary Care Prov ider Clarice Wilkerson MD Primary Care Provider +1- [phone] Rama Michele Primary Care Provider + [phone] Encounter Details Date Type Department Care Team (Late st Contact Info) Description 11/21/2019 Procedure Pass [facility], Ct Scan - [address] [address] Social History Tobacco Use Types Packs/Day Years [...] documented as of this encounter Care Teams Bulk Materials Handling Plant Operator Relationship Specialty Start Date End Date Brayden Johnson MD PCP - General 01/02/17 Clarice Wilkerson MD PCP - General Family Medicine 12/28/19 04/26/20 Rama Michele PA [address] [place] [address] PCP - General Tool Filer Hand 04/27/20 documented as of this encounter Additional Source Comments The information contained in this document represents components of the legal health record. It is not the complete legal health record.[facility]
--- OUTSIDE RECORDS SUMMARY | 2024-12-01 05:29 | XMS_ITS | Clinical Summary ---
Author Organization [facility] Address [address] [place], [place] [id number] Phone Care Team Providers Care Burring Machine Operator Name Role Phone Rama Michele Primary Care Provider [phone]- [phone] Allergies Active Allergy Reactions Criticality Noted Date Comments Celecoxib Rash Low 05/03/2013 Egg White Unknown 05/03/2013 Gabapentin Unknown 05/03/2013 Hydrocodone Other (See Comments) 12/31/2019 abdominal pain Latex Rash Low 05/03/2013 Other Medium 12/31/2019 Lyrica- dizziness Vancomycin Rash Low 01/20/2018 Medications albuterol 90 mcg/actuation inhaler [The details of the medication are not available because there are pending changes by a home health clinician.] 1 Inhaler 8 Active Additional Information Patient not taking.Reason: Other, Informant: Lead Nitrate Processor, Reported on 01/18/2022 inhaler spacing device (AEROCHAMBER,BR EATHERITE) Spcr [The details of the medication are not available because there are pending changes by a home health clinician.] 1 each 8 Active Additional Information Patient not taking.Reason: Other, Reported on 01/18/2022 amLODIPine (NORVASC) 5 MG tablet Take 5 mg by mouth daily. 0 Active saliva substitute combo no.9 (BIOTENE DRY MOUTH ORAL RINSE MM) Take 15 mL by mouth 3 (three) times a day as needed (dry mouth). swish and spit 0 Active ciclopirox (CICLODAN) 0.77 % cream Apply 1 application topically 2 (two) times a day as needed (fungus). to affected and surrounding areas 0 Active diclofenac sodium (VOLTAREN) 1 % Gel Apply 3 g topically 4 (four) times a day as needed (pain). apply to affected leg area up to 4x/ day, as needed for pain 0 Active erythromycin (ROMYCIN) ophthalmic ointment Place 1 application into the right eye nightly at bedtime. 0 Active simethicone (MYLICON) 80 mg chewable tablet Take 80 mg by mouth as needed for flatulence. 0 Active lisinopril (PRINIVIL,ZESTR IL) 20 MG tablet Take 20 mg by mouth daily. 0 Active pravastatin (PRAVACHOL) 40 MG tablet Take 40 mg by mouth daily. 0 Active pyridoxine, vitamin B6, (VITAMIN B-6) 100 MG tablet Take 100 mg by mouth daily. 0 Active cholecalciferol (VITAMIN D3) 5,000 unit tablet Take 5,000 Units by mouth daily. 0 Active pantoprazole (PROTONIX) 40 MG tablet Take 40 mg by mouth as needed (heartburn). take 1 tablet 30 minutes before breakfast as needed 0 Active traMADoL (ULTRAM) 50 mg tabletIndicatio ns:Closed Colles' fracture of left radius, initial encounter,Pain, wrist, left [The details of the medication are not available because there are pending changes by a home health clinician.] 15 tablet 1 Active Additional Information Patient not taking.Reason: Other, Reported on 01/18/2022 pseudoephedrine -guaiFENesin (MUCUS D) 60-600 mg per tablet Take 1 tablet by mouth every 12 (twelve) hours. 2 Active acetaminophen (TYLENOL) 500 MG tablet Take 1,000 mg by mouth every 8 (eight) hours as needed for pain (specific location in comments). 2 Active DULoxetine (CYMBALTA) 60 MG capsule Take 120 mg by mouth daily. 2 Active potassium chloride (KLOR-CON) 20 mEq packet Take 10 mEq by mouth daily. pt takes 1/2 pill 2 Active furosemide (LASIX) 40 MG tablet Take 20 mg by mouth daily. 2 Active Active Problems Problem Noted Date Diagnosed Date Infection of left knee 01/20/2018 Assessment & Plan (01/20/2018 12:15 PM EST): The patient has a large hematoma after having a fall a couple of weeks ago when she tripped over a chair sustaining a contusion to her left knee. This appears to be infected. She has had a total knee replacement on this side done by Dr. Gutierrez at [facility] about 10 years ago. Apparently x-rays did not show anything to be broken. She says the knee became red, hot and swollen right after her fall two weeks ago. At this point, I am loath to perform an incision and drainage of this swollen knee in the case that there is infection involved with her joint replacement. I have spoken with Dr. Gutierrez who has agreed to see her today at 1 p.m. Status post left knee replacement 01/20/2018 Assessment & Plan (01/20/2018 12:04 PM EST): The patient has had a left knee replacement [address] Gutierrez of [facility] in [place], [place]. Traumatic hematoma of knee, left, initial encoun ter 01/20/2018 Assessment & Plan (01/20/2018 12:09 PM EST): Two weeks ago the patient fell and sustained a swollen bruised left knee. She has been told she has a hematoma of the knee that does not appear to be healing. On exam this appears infected, and because she has had a knee replacement, she will be seen later today by Dr. Gutierrez of orthopedics who performed the replacement. Obesity 01/19/2018 Assessment & Plan (01/20/2018 12:04 PM EST): The patient's obesity may affect the presenting issue of surgical procedure (s) and may increase the risk of slow healing wound (s), infection (s), kidney, lung and/or heart problems. Stable and/or controlled chronic conditions may reduce complications associated with your chronic condition (s). Hypertension 07/21/2017 Assessment & Plan (04/27/2018 11:38 AM EST): Well-controlled to the guideline Assessment & Plan (01/20/2018 12:04 PM EST): The patient's hypertension may affect the presenting issue of surgical procedure (s) and may increase the risk of slow healing wound (s), infection (s), kidney, lung and/or heart problems. Stable and/or controlled chronic conditions may reduce complications associated with your chronic condition (s). Assessment & Plan (09/29/2017 11:09 AM EDT): Well-controlled to the guidelines Assessment & Plan (07/21/2017 12:16 PM EDT): Well-controlled to the guidelines today Hyperlipidemia 02/17/2017 Assessment & Plan (09/29/2017 11:09 AM EDT): LDL given her risk should be less than 100 mg/dL Assessment & Plan (04/08/2017 12:38 PM EST): LDL goal should be less than 100 mg/dL given her risk factors Assessment & Plan (02/17/2017 9:00 AM EST): LDL goal given her risk should be less than 100 mg/dL blood pressure is normal today Sleep apnea with use of cont inuous positive airway pressure (CPAP) 02/17/2017 Assessment & Plan (04/27/2018 11:38 AM EST): She well knows to lose weight which is very difficult given her arthritis and inability to burn any calorie Assessment & Plan (01/20/2018 12:06 PM EST): The patient's sleep apnea disorder may affect the presenting issue of surgical procedure (s). Complications perioperatively may include irregular heart rhythms, oxygen deficiency, high blood pressure, diabetes, stroke, heart attack and even . Stable and/or controlled chronic conditions may reduce complications associated with your chronic condition (s). She does use CPAP. Assessment & Plan (07/21/2017 12:17 PM EDT): This patient has obvious sleep apnea and is wearing a mask I did talk to her about weight loss and she is significantly overweight. Assessment & Plan (04/08/2017 12:38 PM EST): This patient knows to lose weight and I'm actually surprised her PA pressure is normal. Assessment & Plan (02/17/2017 9:00 AM EST): I did discuss this at length with the patient she needs to lose a lot of weight to actually improve this she did verbalize understanding and is wearing her mask on a nightly basis but it does not actually sound as if it is effective. She is very tired during the day Venous stasis dermatitis of both lower extremiti es 02/17/2017 Assessment & Plan (04/27/2018 11:38 AM EST): Most of her problems are due to arthritis and she has minimal venous insufficiency type symptoms actually Assessment & Plan (09/29/2017 11:09 AM EDT): She has swelling in the legs worse on the left than the right but no real venous disease by ultrasound which was of good quality. 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 Assessment & Plan (07/21/2017 12:16 PM EDT): As above we will give her Lasix 10 mg every other day as a trial in conjunction with her Velcro stockings I will see her in 6 weeks time. Assessment & Plan (04/08/2017 12:38 PM EST): Venous ultrasound study showed no evidence of deep or surface vein valve regurgitation we are going to get her a good set of compression stockings and follow-up with her in 3 months Assessment & Plan (02/17/2017 8:59 AM EST): This patient has a lot of symptoms from venous insufficiency and a lot of swelling I am going to order her a reflux study and an echocardiogram I will see her thereafter in follow-up E her pulmonary artery pressure is not elevated. Family History Medical History Relation Comments Heart attack Father Angina Mother Heart attack Sister Relation Status Comments Father Mother Sister Social History Tobacco Use Types Packs/Day Years [...] Orientation Straight 06/28/2017 11 :44 AM EDT Last Filed Vital Signs Vital Sign Reading Time Taken Comments Blood Pressure 122/78 02/28/2022 2:48 PM EST Pulse 68 02/28/2022 2:48 PM EST Temperature 36.1 C (97 F) 02/28/2022 2:48 PM EST Respiratory Rate 14 02/26/2022 2:00 PM EST Oxygen Saturation 97% 02/28/2022 2:48 PM EST Inhaled Oxygen Concentration - - Weight 87.5 kg (193 lb) 01/16/2022 10:12 AM EDT Height 157.5 cm (5' 2 ) 01/16/2022 10:12 AM EDT Body Mass Index 35.3 01/16/2022 10:12 AM EDT Plan of Treatment Health Maintenance Due Date Last Done Comments DEPRESSION SCREENING 1952 ZOSTER VACCINES (1 of 2) 01/28/1992 OSTEOPOROSIS SCREENING INITI AL (ONE-TIME) 2007 RSV VACCINE (1 - 1-dose 75+ series) 2017 Adult Td,Tdap Booster 05/25/2022 05/25/2012 BLOOD PRESSURE 08/29/2022 02/28/2022 CREATININE LEVEL 01/15/2023 01/15/2022, 06/28/2017 POTASSIUM LEVEL 01/15/2023 01/15/2022, 06/28/2017 INFLUENZA VACCINE (#1) 2024 01/18/2019 COVID-19 VACCINE (2 - 2024-2 6 season) 2024 06/19/2020 PNEUMOCOCCAL VACCINES (50+ years) Completed 09/02/2017, 11/11/2014 HEPATITIS A VACCINES Aged Out No long er eligible based on patient's age to complete this topic HIB VACCINES Aged Out No longer eligi ble based on patient's age to complete this topic MENINGOCOCCAL VACCINES (ACWY) Aged Out No longer eligible based on patient's age to complete this topic MENINGOCOCCAL VACCINES (B) Aged Out N o longer eligible based on patient's age to complete this topic Medical Devices Implanted Type Area Bread Panner Device Identifier Shelf Expiration Date Model / Serial / Lot Bilat Hip/Knee Replacements,Lt Shoulder Screws Procedures Procedure Name Priority Date/Time Associated Diagnosis Comments BASIC METABOLIC PANEL STAT 01/15/2022 4:18 PM EDT from Last 3 Months or Most Recently Relevant to Health Maintenance Results * (ABNORMAL) Basic metabolic panel (01/15/2022 4:18 PM EDT) SODIUM 141 133 - 146 mmol/L [facility] CHLORIDE 102 96 - 108 mmol/L [facility] POTASSIUM 3.5 3.3 - 5.1 mmol/L [facility] CO2 28 21 - 35 mmol/L [facility] BUN 12 6 - 19 mg/dL [facility] CREATININE 1.10 0.5 - 1.5 mg/dL [facility] GLUCOSE 121(H) 70 - 99 mg/dL [facility] CALCIUM 9.5 8.4 - 10.3 mg/dL [facility] EGFR 51(L) >59 mL/min/1.7 3m2 [facility] Comment:Estimated glomerular filtration rate calculated using the CKD-EPI refit equation. ANION GAP 15 10 - 20 mmol/L [facility] Blood 01/15/2022 4:18 PM EDT 01/15/2022 4:32 PM EDT Farrah A Pressey PA LAB BLOOD ORDERABLES Final Result [facility] [address], [place] [id number] from Last 3 Months or Most Recently Relevant to Health Maintenance Insurance MEDICARE PART A & B [employer] PCP REQ SUPPLEMENT MEDICARE PART A & B [employer] PCP REQ SUPPLEMENT MEDICARE PART A & B [employer] MEDEX PCP REQ SUPPLEMENT MEDICARE PART A & B [facility] MEDEX PCP REQ SUPPLEMENT MEDICARE PART A & B [facility] PCP REQ SUPPLEMENT MEDICARE PART A & B [employer] MEDEX PCP REQ SUPPLEMENT MEDICARE PART A & B [employer] MEDEX PCP REQ SUPPLEMENT MEDICARE PART A & B [employer] PCP REQ SUPPLEMENT MEDICARE PART A & B [employer] PCP REQ SUPPLEMENT Advance Directives For more information, please contact: [phone] (9AM - 5PM [place], Friday-Friday) Documents on File Type Date Recorded Patient Drop Hammer Setter Up Expl anation Healthcare Proxy 01/16/2022 FREYA HCP dimas r copy Healthcare Agents on File Name Relationship Healthcare Agent Relationshi p Communication Shani Quinones Daughter Alternate Health care Agent (Proxy form on file) Care Teams Burring Machine Operator Relationship Specialty Start Date End Date Rama Michele PA [address] [place] [id number] PCP - General Appeals Officer 04/27/20 Additional Source Comments The information contained in this document represents components of the legal health record. It is not the complete legal health record.[facility]
--- OUTSIDE RECORDS SUMMARY | 2024-12-01 05:29 | XMS_ITS | Encounter Summary ---
Author Organization [facility] Address [address] [place], [place] [id number] Phone Care Team Providers Care Sas Clinical Programmer Name Role Phone Rama Michele Primary Care Provider +1- [phone] Encounter Details Date Type Department Care Team (Late st Contact Info) Description 02/17/2024 Procedure Pass [facility], Ct Scan - [address] [id number] Social History Tobacco Use Types Packs/Day Years [...] on filedocumented in this encounter Care Teams Sas Clinical Programmer Relationship Specialty Start Date End Date Rama Michele PA [address] [place] [id number] PCP - General Diamond Mounter 04/27/20 documented as of this encounter Additional Source Comments The information contained in this document represents components of the legal health record. It is not the complete legal health record.[facility]
--- NOTE | 2024-12-01 05:36 | ECG_ITS ---
Test Reason : FALL Blood Pressure : */* mmHG Vent. Rate : 81 BPM Atrial Rate : 81 BPM P-R Int : 158 ms QRS Dur : 134 ms QT Int : 418 ms P-R-T Axes : 39 4 20 degrees QTcB Int : 485 ms Artifact in tracing Normal sinus rhythm Right bundle branch block Abnormal ECG When compared with ECG of 03-Nov-2024 13:40, No significant change was found Referred By: Cooper Russell Electronically Signed By: JANIE SWEENEY
--- NOTE | 2024-12-01 05:39 | ED.BACK ---
HPI - Back Pain/Injury General Chief Complaint: Back Pain/Injury Stated Complaint: FALL/LOWER BACK PAIN Time Seen by Provider: 12/01/24 04:48 Source: patient and EMS Mode of arrival: EMS Limitations: no limitations History of Present Illness ED Provider: Cooper MANCILLA HPI Narrative: The patient is an 84-year-old female with a history of GERD, Alzheimer's dementia, chronic allergic conjunctivitis, chronic lymphedema, depression, CHF, hyperlipidemia, morbid obesity, osteoarthritis, fibromyalgia, and right bundle-branch block, presenting to the emergency department via EMS from her SNF for evaluation of neck and low back pain after ?sliding? out of bed while trying to get up. The patient reports low back pain worse with standing, and neck pain. Patient reports she did not strike her head on the floor but reports her head got crumpled between her bed and nightstand, resulting in pain in her neck. The patient denies anticoagulation. Patient denies any chest pain, shortness of breath, abdominal pain, headache, focal neurological deficit, dizziness, or other prodrome prior to the fall. Patient reports she believes she was just sleeping too close to the edge of the bed and rolled over to get up when she fell out of bed. The patient does report yesterday she developed a recurrent but nonproductive cough with mild fatigue. The patient denies other recent falls, or known sick contacts, denies associated recent fever/chills, nausea, vomiting, diarrhea, hematochezia, melena, hematuria, dysuria, abdominal pain, chest pain, or shortness of breath. The patient does report she has been suffering from 3 weeks of increased allergic conjunctivitis symptoms, currently treated with eyedrops by her PCP. Related Data Home Medications ?Medication ?Instructions ?Recorded ?Confirmed amlodipine 5 mg tablet 5 mg PO DAILY 11/15/20 02/13/23 duloxetine 60 mg capsule,delayed 60 mg PO DAILY 11/15/20 03/06/22 release lisinopril 20 mg tablet 20 mg PO DAILY 11/15/20 03/06/22 pantoprazole 40 mg tablet,delayed 40 mg PO DAILY 11/15/20 03/06/22 release potassium chloride 20 mEq 20 meq PO DAILY 11/15/20 03/06/22 tablet,extended release(part/cryst) pravastatin 40 mg tablet 40 mg PO DAILY 11/15/20 02/13/23 ciclopirox 8 % topical solution topical 03/06/22 03/06/22 nystatin 100,000 unit/gram topical topical 03/06/22 03/06/22 powder triamcinolone acetonide 0.1 % topical 03/06/22 03/06/22 topical ointment calcium phosphate,dibasic 77 tab PO 02/13/23 02/13/23 mg-vitamin D3 400 unit tablet Previous Rx's ?Medication ?Instructions ?Recorded furosemide 40 mg tablet 40 mg PO DAILY 90 days #90 tabs 03/06/22 amoxicillin 875 mg-potassium 1 tab PO BID #14 tabs 02/13/23 clavulanate 125 mg tablet Allergies Allergy/AdvReac Type Severity Reaction Status Date / Time latex (Latex) Allergy Mild RASH Verified 12/01/24 04:54 celecoxib (From CELEBREX) Allergy Unknown RASH Verified 12/01/24 04:54 [place] And Derivatives Allergy Unknown RASH ON Verified 12/01/24 04:54 FACE egg Allergy Unknown RASH FROM Verified 12/01/24 04:54 EGG WHITES gabapentin (GABAPENTIN) Allergy Unknown RASH Verified 12/01/24 04:54 lactose (LACTOSE) Allergy Unknown INTOLERANT Verified 12/01/24 04:54 peas Allergy Unknown FROM Verified 12/01/24 04:54 TESTING RESULT vancomycin (VANCOMYCIN) Allergy Unknown UNKNOWN Verified 12/01/24 04:54 hydrocodone (HYDROCODONE) AdvReac Unknown ABDOMINAL Verified 12/01/24 04:54 PAIN saccharin (SACCHARIN) AdvReac Unknown HEADACHE Verified 12/01/24 04:54 JEWELRY Allergy Unknown RASH Uncoded 12/01/24 04:54 PLASTIC Allergy Unknown RASH Uncoded 12/01/24 04:54 Review of Systems Review of Systems: Yes all other systems are reviewed and are negative [facility] Past Medical History Medical History Chronic heart failure with preserved ejection fraction (HFpEF) Essential hypertension ZKA (obstructive sleep apnea) RBBB Surgical History No pertinent past surgical history Family History Family History Father No problems noted. Mother No problems noted. Social History Social History (Updated 03/06/22 @ 15:26 by JOSHUA Millan) Alcohol intake: never Patient Tobacco Use Status: Never used Tobacco Smoked in Last 30 Days: No Use of substances other than those prescribed or required for medical reasons: No Advance Directives: No Advance Directives Information Provided: Yes Physical Exam Vital Signs: Vital Signs: Last Vital Signs Temp 98.4 F 12/01/24 07:10 Pulse 84 12/01/24 07:10 Resp 13 12/01/24 07:10 BP 120/77 12/01/24 07:10 Pulse Ox 97 12/01/24 07:10 O2 Del Method Room Air 12/01/24 07:10 BMI result Body Mass Index 38.0 CONSTITUTIONAL: The patient appears chronically ill, but otherwise non-toxic, well nourished and in no acute distress. Vital signs as documented. HEAD: Atraumatic, normocephalic. EYES: EOMs grossly intact, pupils equal, conjunctiva clear, no exudate. ENT: Nares patent, no discharge. Airway patent, no audible stridor, visible mucosa is pink and moist without noted lesions. NECK: Trachea is midline, no obvious masses or gross abnormalities. No midline spinous process tenderness or crepitus, no step-off, patient reports bilateral paraspinal tenderness. CHEST: Symmetric movement, normal appearance. LUNGS: LS present and CTAB, no w/r/r. Non-labored work of breathing. CARDIAC: Regular Rhythm, S1/S2 appreciated, no murmurs, rubs or gallops. ABDOMEN: Abdomen soft and non-tender x4 quadrants, no palpable masses or organomegaly. : Deferred. EXTREMITIES: Normal tone, moves all extremities spontaneously without reported pain. No obvious acute injury or deformity noted. 2+ nonpitting pedal edema bilaterally, no asymmetry or erythema. Patient reports this is baseline. NEURO: Alert and oriented to person, place, and situation, CN II-XII appear grossly intact. Cerebellar Functioning grossly intact. No obvious sensory or motor deficits. Speech clear and appropriate. PSYCH: normal affect, appropriate eye contact, fluid speech, with appropriate response to questioning. No reported suicidality or homicidality. SKIN: Warm, dry, color appropriate, normal turgor. No rashes noted. Course Reevaluation(s) Reevaluation #1: 6:12 AM 12/01/2024 (Dr. Neal Caldera): Presenting with nonsyncopal fall, other symptoms such as minimal cough, nonfebrile, we will follow up on imaging, re-evaluation and disposition to be determined. Time: 06:12 Reevaluation #2: Imaging reviewed has been unremarkable for acute injuries, blood work, viral swabs reassuring CT lumbar spine with incidental finding of right proximal ureteral stone, without any evidence for renal dysfunction has had no fevers dysuria, patient updated and we will update SNF as well in discharge instructions Time: 08:16 Medical Decision Making Medical Decision Making [facility] Narrative: 5:40 AM 12/01/2024 (Karissa MANCILLA): The patient is an 84-year-old female presenting to the emergency department via EMS from her SNF for evaluation of neck and low back pain after ?sliding? out of bed while trying to get up. The patient reports low back pain worse with standing, and neck pain. Patient reports she did not strike her head on the floor but reports her head got crumpled between her bed and nightstand, resulting in pain in her neck. The patient denies anticoagulation. Patient denies any chest pain, shortness of breath, abdominal pain, headache, focal neurological deficit, dizziness, or other prodrome prior to the fall. Patient reports she believes she was just sleeping too close to the edge of the bed and rolled over to get up when she fell out of bed. The patient does report yesterday she developed a recurrent but nonproductive cough with mild fatigue. The patient denies other recent falls, or known sick contacts, denies associated recent fever/chills, nausea, vomiting, diarrhea, hematochezia, melena, hematuria, dysuria, abdominal pain, chest pain, or shortness of breath. The patient in the ED is nontoxic appearing, lung sounds clear to auscultation bilaterally, no midline spinous process tenderness. No hip pain or tenderness, no abdominal tenderness. The patient's lower extremities are chronically edematous, no associated erythema, distal CSM intact. The patient will be sent for laboratory evaluation to identify any sources of weakness, as well as viral swabs and chest x-ray to evaluate new onset cough. The patient's fall was unwitnessed, we will also obtain EKG, troponin, urinalysis, and due to the patient's neck pain we will obtain a CT head and neck. Due to body habitus likely limiting the utility of lumbar plain film, we will evaluate patient's low back pain with CT lumbar spine. Admission/Observation Consideration of admission/observation: Escalation of care including admission/observation considered Lab Data 12/01/24 06:02 12/01/24 06:02 Labs: Lab Results 12/01/24 Range/Units 06:02 WBC 6.2 (4.8-10.8) X10*3/uL RBC 4.14 L (4.20-5.50) X10*6/uL Hgb 13.0 (12.0-16.0) g/dl Hct 39.0 (37.0-47.0) % MCV 94.2 (80.0-98.0) fL MCH 31.4 (27.0-33.0) pg MCHC 33.3 (31.0-35.0) g/dl RDW 13.1 (11.0-16.0) % Plt Count 192 (160-400) X10*3/uL MPV 12.1 (9.4-12.3) fL Immature Gran % (Auto) 0.2 (0.0-0.4) % Neut % (Auto) 67.0 (45-73) % Lymph % (Auto) 14.7 L (20-40) % [place] % (Auto) 10.1 (2-11) % Eos % (Auto) 7.4 H (0-4) % Baso % (Auto) 0.6 (0-2) % Lymph # (Auto) 0.9 L (1.2-4.9) X10*3/uL [place] # (Auto) 0.6 (0.1-1.2) X10*3/uL Eos # (Auto) 0.5 H (0.0-0.4) X10*3/uL Baso # (Auto) 0.0 (0.0-0.2) X10*3/uL Abs Immat Gran (auto) 0.01 (0.00-0.03) X10*3/uL Absolute Neuts (auto) 4.2 (2.0-8.3) x10*3/uL Absolute Nucleated RBC 0.000 (0.0-0.012) X10*3/uL Nucleated RBC % (auto) 0.0 (0.0-0.2) /100WBC Sodium 142 (135-145) mmol/L Potassium 4.0 (3.3-5.1) mmol/L Chloride 108 (96-108) mmol/L Carbon Dioxide 26 (22-29) mmol/L Anion Gap 12 (12-20) BUN 15 (9-16) mg/dL Creatinine 1.03 (0.5-1.4) mg/dL Estim Creat Clear Calc 45.0 Estimated GFR 51 Random Glucose 105 (60-115) mg/dL Calcium 9.5 (8.4-10.2) mg/dL Magnesium 2.3 (1.6-2.6) mg/dL Total Bilirubin 1.1 H (0.0-1.0) mg/dL AST 30 (5-31) U/L ALT 14 (0-31) U/L Alkaline Phosphatase 104 (39-117) U/L Troponin I High Sens 5.7 D (<3.5-17.0) ng/L B-Natriuretic Peptide 14 (<100) pg/mL Total Protein 7.0 (6.5-8.0) g/dL Albumin 4.4 (3.5-5.0) g/dL COVID-19 (AMY) Negative (Negative) COVID-19 Clin Com See Note Influenza Type A (MOOSE) Negative (Negative) Influenza Type B (MOOSE) Negative (Negative) Influenza A & B Note See Note Independent Interpretation I performed an independent interpretation of an: EKG (EKG shows sinus rhythm with a rate of 81, with a right bundle-branch block, no evidence of acute ischemia, no ST elevation, no ectopy. QTC 45. Compared to previous on 11/03/2024 there are no significant morphology changes. ) Discharge Plan Discharge Clinical Impression: Neck pain Accidental fall from bed Qualifiers: Encounter type: initial encounter Qualified Code(s): W06.XXXA - Fall from bed, initial encounter Low back pain Qualifiers: Chronicity: chronic Back pain laterality: unspecified Sciatica presence: without sciatica Qualified Code(s): M54.50 - Low back pain, unspecified Patient Disposition: Xfer [facility] Additional Instructions: Evaluated after a fall, had CT head and neck lumbar spine there were no acute injuries, also mentioned that you were coughing, had a chest x-ray viral swab blood work all of which has been reassuring, we will be discharged back to rehab facility Incidental finding was that patient has kidney stone right proximal ureter, with preserved renal function, patient has not been complaining of any flank pain and this is incidental finding, she can take ibuprofen and Tylenol as needed for pain however this may need follow up discuss with her primary provider. No acute compression fractures. 2. Obstructive right proximal ureteral stone measuring 0.6 cm results in mild proximal hydroureteronephrosis. Multiple additional bilateral nonobstructing renal/ureteral stones. 3. Advanced multilevel degenerative change Prescriptions: No Action Vitamin D (with calcium) 77-400 mg-unit Tablet PO amoxicillin-pot clavulanate 875-125 mg tablet 1 tab PO BID Qty: 14 0RF potassium chloride 20 mEq tablet,ER particles/crystals 20 meq PO DAILY duloxetine 60 mg capsule,delayed release(DR/EC) 60 mg PO DAILY pantoprazole 40 mg tablet,delayed release (DR/EC) 40 mg PO DAILY amlodipine 5 mg tablet 5 mg PO DAILY pravastatin 40 mg tablet 40 mg PO DAILY lisinopril 20 mg tablet 20 mg PO DAILY triamcinolone acetonide 0.1 % ointment topical nystatin 100,000 unit/gram powder topical ciclopirox 8 % solution topical furosemide 40 mg tablet 40 mg PO DAILY 90 Days Qty: 90 3RF Print Language: French
[2024-12-01 06:08] LABS: MANUAL DIFF FLAG NO
[2024-12-01 06:15] LABS: Hematocrit 39.0 % (37.0-47.0); Hemoglobin 13.0 g/dl (12.0-16.0); Imm Gran Abs Auto 0.01 X10*3/uL (0.00-0.03); Imm Gran Pct Auto 0.2 % (0.0-0.4); Lymphocytes Absolute Auto 0.9 X10*3/uL (1.2-4.9); Mean Corpuscular HGB Conc 33.3 g/dl (31.0-35.0); Mean Corpuscular Hemoglobin 31.4 pg (27.0-33.0); Mean Corpuscular Volume 94.2 fL (80.0-98.0); NRBC Abs Auto 0.000 X10*3/uL (0.0-0.012); NRBC Pct Auto 0.0 /100WBC (0.0-0.2); Platelet Count 192 X10*3/uL (160-400); Red Blood Count 4.14 X10*6/uL (4.20-5.50); White Blood Count 6.2 X10*3/uL (4.8-10.8)
[2024-12-01 06:23] LABS: Alanine Aminotransferase 14 U/L (0-31); Albumin Level 4.4 g/dL (3.5-5.0); Alkaline Phosphatase 104 U/L (39-117); Anion Gap 12 (12-20); Aspartate Amino Transferase 30 U/L (5-31); Blood Urea Nitrogen 15 mg/dL (9-16); Calcium 9.5 mg/dL (8.4-10.2); Carbon Dioxide 26 mmol/L (22-29); Chloride 108 mmol/L (96-108); Creatinine Clr Calc Pharmacy 45.0; Estimated Glomerular Filt Rate 51; Magnesium 2.3 mg/dL (1.6-2.6); Potassium 4.0 mmol/L (3.3-5.1); Sodium 142 mmol/L (135-145); Total Protein 7.0 g/dL (6.5-8.0)
[2024-12-01 06:27] LABS: COVID-19 Test Negative (Negative); IDNOW Serial# 55D5AD1C; IDNOW Serial# 58CA691E; Influenza B2 Negative (Negative)
[2024-12-01 06:29] LABS: B Type Natriuretic Peptide 14 pg/mL (<100)
[2024-12-01 06:30] LABS: Troponin-I High Sensitivity 5.7 ng/L (<3.5-17.0)
[2024-12-01 07:10] VITALS: BP 120/77; PULSE 84; RESP 13; TEMP 36.9; O2SAT 97
--- NOTE | 2024-12-01 07:12 | PC.NURSE ---
Pt oriented to self. Resting quietly, reports that she hurt her shoulders and left wrist falling out of bed (because she was going to work). Reports little to no pain at this time.
[2024-12-01 10:00] VITALS: BP 118/70; PULSE 88; RESP 13; TEMP 36.9; O2SAT 97
--- NOTE | 2024-12-01 10:29 | PC.NURSE ---
Report called to RN at [facility]. [facility] to transport her back. Pt reports minimal pain at this time.
[2024-12-01 10:31] VITALS: BP 118/70; PULSE 88; RESP 13; TEMP 36.9; O2SAT 97
== END 2024-12-01 11:02 | disposition other institution (70) ==
PROVIDERS: Physician Assistant; Emergency Provider Emergency Medicine; PCP Physician Assistant Medical
DX: M54.2 Cervicalgia (principal); M54.50 Low back pain, unspecified; R05.9 Cough, unspecified; W06.XXXA Fall from bed, initial encounter; Y93.9 Activity, unspecified; Y92.9 Unspecified place or not applicable; Y99.9 Unspecified external cause status
CPT/HCPCS: 70450; 71046; 72125; 72131; 80053; 83735; 83880; 84484; 85025; 87502; 87635; 93005; 99284

== ENCOUNTER → 2024-12-01 05:36 | Outpatient (BNV) | payer MEDICARE, SELFPAY | PROVIDERS: Emergency Provider Emergency Medicine; Visit Provider Radiology Vascular & Interventional Radiology | DX: M48.062 Spinal stenosis, lumbar region with neurogenic claudication (principal) | CPT/HCPCS: 70450; 72125; 72131 ==

== ENCOUNTER → 2024-12-01 05:36 | Outpatient (BNV) | payer MEDICARE, SELFPAY | PROVIDERS: Emergency Provider Emergency Medicine; PCP Physician Assistant Medical; Visit Provider Internal Medicine | DX: I45.10 Unspecified right bundle-branch block (principal) | CPT/HCPCS: 93010 ==

== ENCOUNTER 2024-12-20 05:41 | Emergency (ER) | payer MEDICARE, SELFPAY ==
[2024-12-20] VITALS (7 sets, daily range): BP systolic 142–173; BP diastolic 57–100; PULSE 73–106; RESP 12–19; TEMP 36.4–37.3; O2SAT 95–100; BMI 37.5
--- NOTE | ~2024-12-20 | CT_ITS ---
CLINICAL HISTORY: fall confused CT cervical spine without contrast Comparison: 12/01/2024 Findings: Vertebral alignment is within normal limits. No significant degenerative change. There is multiple level degenerative disc, facet, and uncovertebral joint change. Visualized intracranial contents are unremarkable. Soft tissues of the neck are normal. No consolidation or effusion at the lung apices. IMPRESSION: No acute findings. This document has been electronically signed by: Greg Kirk MD on 12/20/2024 07:17:38
--- NOTE | ~2024-12-20 | XR_ITS ---
EXAMINATION: XR KNEE 1-2 VIEWS LEFT HISTORY: pain, fall COMPARISON: Comparison is made with the prior examination dated 6 08/17/2022. FINDINGS: AP and lateral views of the left knee are submitted. The patient is again noted to be status post left total knee arthroplasty. The orthopedic elements are in anatomic alignment. There is no radiographic evidence of loosening. There is no fracture or dislocation. There is no joint effusion. The soft tissues are unremarkable. XR/XR knee LT 2V IMPRESSION: Status post left total knee arthroplasty. Electronically signed by: Chester Little MD 12/20/2024 08:55 AM EDT
--- NOTE | ~2024-12-20 | CT_ITS ---
CLINICAL HISTORY: fall confused CT head without contrast Comparison: 12/01/2024 Findings: No new intra-axial mass, midline shift, hydrocephalus, or acute hemorrhage. There is moderate diffuse atrophy and white matter change, possible chronic microvascular ischemia There is no sinus or mastoid fluid. The orbits are within normal limits. No skull fracture. IMPRESSION: 1. No acute intracranial findings. This document has been electronically signed by: Greg Kirk MD on 12/20/2024 07:16:21
--- NOTE | ~2024-12-20 | XR_ITS ---
EXAMINATION: XR CHEST 1 VIEW HISTORY: cough COMPARISON: Comparison is made with the prior examination dated 12/01/2024. FINDINGS: A single AP portable view of the chest performed at 8:38 AM is submitted. There are low lung volumes. The lungs are clear. There is no pleural effusion, pneumothorax, or pulmonary vascular congestion. The heart is normal in size. There is degenerative disc disease of the spine. There is severe degenerative change of both shoulders. XR/XR chest 1V IMPRESSION: Low lung volumes. No acute cardiopulmonary abnormality. Electronically signed by: Chester Little MD 12/20/2024 08:49 AM EDT
--- NOTE | ~2024-12-20 | XR_ITS ---
EXAMINATION: XR WRIST 3 OR MORE VIEWS LEFT HISTORY: fall COMPARISON: There are no prior studies available for comparison. FINDINGS: Four views of the left wrist, including a scaphoid view are submitted. The bones are osteopenic. There is an old healed fracture deformity of the distal radius. No acute fracture is identified. There is severe osteoarthritis of the 1st carpometacarpal joint, with joint space narrowing and osteophyte formation. Milder changes are noted involving the remainder of the carpus. The soft tissues are unremarkable. XR/XR wrist LT min 3V IMPRESSION: Osteopenia. Old healed fracture of the distal radius. Severe osteoarthritis of the carpus. No acute fracture is identified. Electronically signed by: Chester Little MD 12/20/2024 08:48 AM EDT
--- NOTE | ~2024-12-20 | CT_ITS ---
EXAMINATION: CT ABDOMEN AND PELVIS WITHOUT CONTRAST CLINICAL INFORMATION: Flank pain, history of nephrolithiasis COMPARISON: [3023 TECHNIQUE: Multidetector volumetric imaging was performed from the superior aspect of the liver through the pubic symphysis. Sagittal and coronal reformatted images were obtained on the technologist's workstation. This CT examination was performed using dose optimization techniques as appropriate, variously including the following: *Automated exposure control *Adjustment of mA and/or kV according to patient size (this includes techniques or standardized protocols for targeted exams where dose is matched to indication/reason for exam; i.e. extremities or head) *Use of iterative reconstruction technique FINDINGS: LUNG BASES: There is minimal linear scarring and or atelectasis in the dependent portions of the lower lungs. LIVER, GALLBLADDER, AND BILIARY TREE: The liver is normal in size, shape, and attenuation. No focal hepatic lesion or biliary ductal dilatation is present. The gallbladder is unremarkable with no evidence of radiopaque gallstones, gallbladder wall thickening, or obvious pericholecystic inflammatory changes. PANCREAS: Unremarkable. SPLEEN: Unremarkable. ADRENAL GLANDS: Unremarkable. KIDNEYS AND URETERS: There is a 5 x 9 mm nonobstructing stone in the lower pole left kidney. It has increased in size since the prior. There are approximately 5-6 stones in the right kidney. The largest is in the superior pole and measures 6 x 12 mm. The right ureter is slightly more dilated than on the previous. Both distal ureters and ureterovesicular junctions are obscured by metal artifact related to bilateral hip arthroplasty. BLADDER: Unremarkable. GASTROINTESTINAL TRACT: Diverticulosis is noted in the sigmoid colon. Gastrointestinal tract is otherwise unremarkable. ABDOMINAL WALL: No significant hernia is appreciated. LYMPH NODES: Normal. VASCULAR: Atherosclerotic calcifications are mild to moderate. PELVIC VISCERA: The region of the uterus is obscured by metal fragment related to bilateral hip arthroplasty. OSSEOUS STRUCTURES: There is 32 degrees levoscoliosis in the thoracal lumbar spine. There is moderate anterior degenerative disc disease and facet osteoarthritis. L5-S1 demonstrates grade 1, nearly grade 2 anterolisthesis with chronic bilateral pars intraarticular surface. Total hip arthroplasty is seen bilaterally, the distal femoral stems are not included in this study. There is moderate degenerative change in the pubic symphysis joint. There is mild degenerative change in the bilateral SI joints. CT/CT abdomen pelvis wo IV con IMPRESSION: There is mild left hydronephrosis. The distal ureters and ureterovesicular junctions are obscured by metal artifact related to bilateral hip arthroplasty. A stone in this region cannot be ruled in or out. Nephrolithiasis. Largest stone on the left measures 5 x 9 mm, in the largest on the right measures 6 x 12 mm. Moderate levoscoliosis of the thoracolumbar spine with moderate to severe degenerative disc disease and facet osteoarthritis. L5-S1 demonstrates grade 1-2 anterolisthesis and chronic bilateral pars interarticularis defects. Fleischner guidelines were followed. Electronically signed by: Juan Manuel Buck MD 12/20/2024 10:40 AM EDT
--- NOTE | ~2024-12-20 | XR_ITS ---
EXAMINATION: XR PELVIS 1-2 VIEWS HISTORY: fall COMPARISON: Comparison is made with the prior examination dated 08/17/2022. FINDINGS: Two AP views of the pelvis are submitted. The patient is status post bilateral total hip arthroplasty. The distal portions of the femoral stem components are excluded. No fracture or dislocation is seen. There is degenerative change of the sacroiliac joints and degenerative disc disease of the lower lumbar spine. XR/XR pelvis 1-2V IMPRESSION: Status post bilateral total hip arthroplasty. No evidence of fracture of the pelvis. Electronically signed by: Chester Little MD 12/20/2024 08:54 AM EDT
--- NOTE | 2024-12-20 05:57 | ECG_ITS ---
Test Reason : FALL Blood Pressure : */* mmHG Vent. Rate : 87 BPM Atrial Rate : 88 BPM P-R Int : 174 ms QRS Dur : 138 ms QT Int : 428 ms P-R-T Axes : 73 31 32 degrees QTcB Int : 515 ms Poor data quality Possible Normal sinus rhythm Right bundle branch block Abnormal ECG When compared with ECG of 01-Dec-2024 05:46, No significant changes seen Referred By: Nicole Alas Electronically Signed By: MARC BACH MD
--- NOTE | 2024-12-20 06:15 | ED.FALL ---
HPI - Fall General Chief Complaint: Fall Stated Complaint: Fall Time Seen by Provider: 12/20/24 05:55 Source: patient, EMS and old records reviewed Mode of arrival: EMS Limitations: other (dementia) History of Present Illness ED Provider: ROBERTO GLASS Narrative: 84 yo female with PMH of GERD, HTN, dementia, depression, CHF, HLD, arthritis, RBBB, ZAK, not on blood thinners here with c/o 2 falls from bed height today. She denies any symptoms but does refer to a runny nose and a cough. She denies injury but she is covered in old bruises on L knee and R UE. She has no signs of head trauma. First fall she told them she slipped out of bed and EMS put her back and she stayed at facility. The second fall she tells me she doesn't know why she keeps slipping but she cannot get herself out of the bed. She denies any CP/SOB. MD complaint: fall Onset (ago): day(s) (last night but also relays this isn't the first fall) Fall from: out of bed Fall witnessed: no Place fall occurred: [facility] Loss of consciousness: none Prolonged down time: unclear Symptoms prior to fall: none Context: tripped/slipped Location of injury - extremities: left: arm (wrist) Severity: mild Associated symptoms (after fall): denies Related Data Home Medications ?Medication ?Instructions ?Recorded ?Confirmed amlodipine 5 mg tablet 5 mg PO DAILY 11/15/20 02/13/23 duloxetine 60 mg capsule,delayed 60 mg PO DAILY 11/15/20 03/06/22 release lisinopril 20 mg tablet 20 mg PO DAILY 11/15/20 03/06/22 pantoprazole 40 mg tablet,delayed 40 mg PO DAILY 11/15/20 03/06/22 release potassium chloride 20 mEq 20 meq PO DAILY 11/15/20 03/06/22 tablet,extended release(part/cryst) pravastatin 40 mg tablet 40 mg PO DAILY 11/15/20 02/13/23 ciclopirox 8 % topical solution topical 03/06/22 03/06/22 nystatin 100,000 unit/gram topical topical 03/06/22 03/06/22 powder triamcinolone acetonide 0.1 % topical 03/06/22 03/06/22 topical ointment calcium phosphate,dibasic 77 tab PO 02/13/23 02/13/23 mg-vitamin D3 400 unit tablet Previous Rx's ?Medication ?Instructions ?Recorded furosemide 40 mg tablet 40 mg PO DAILY 90 days #90 tabs 03/06/22 amoxicillin 875 mg-potassium 1 tab PO BID #14 tabs 02/13/23 clavulanate 125 mg tablet Allergies Allergy/AdvReac Type Severity Reaction Status Date / Time latex (Latex) Allergy Mild RASH Verified 12/20/24 05:50 celecoxib (From CELEBREX) Allergy Unknown RASH Verified 12/20/24 05:50 [place] And Derivatives Allergy Unknown RASH ON Verified 12/20/24 05:50 FACE egg Allergy Unknown RASH FROM Verified 12/20/24 05:50 EGG WHITES gabapentin (GABAPENTIN) Allergy Unknown RASH Verified 12/20/24 05:50 lactose (LACTOSE) Allergy Unknown INTOLERANT Verified 12/20/24 05:50 peas Allergy Unknown FROM Verified 12/20/24 05:50 TESTING RESULT vancomycin (VANCOMYCIN) Allergy Unknown UNKNOWN Verified 12/20/24 05:50 hydrocodone (HYDROCODONE) AdvReac Unknown ABDOMINAL Verified 12/20/24 05:50 PAIN saccharin (SACCHARIN) AdvReac Unknown HEADACHE Verified 12/20/24 05:50 JEWELRY Allergy Unknown RASH Uncoded 12/20/24 05:50 PLASTIC Allergy Unknown RASH Uncoded 12/20/24 05:50 Review of Systems Review of Systems: ROS unable to be obtained due to dementia [facility] Past Medical History Attestation statement: The following information was validated with the patient. Source: old records reviewed Medical History ZAK (obstructive sleep apnea) RBBB Chronic heart failure with preserved ejection fraction (HFpEF) Essential hypertension Surgical History No pertinent past surgical history Family History Family History Father No problems noted. Mother No problems noted. Social History Social History Alcohol intake: never Patient Tobacco Use Status: Never used Tobacco Advance Directives: Yes Advance Directives on File: Yes Advance Directives Date on File: 11/29/24 Physical Exam Vital Signs: Vital Signs: Last Vital Signs Temp 97.5 F 12/20/24 11:15 Pulse 106 H 12/20/24 11:15 Resp 12 12/20/24 11:15 BP 173/85 H 12/20/24 11:15 Pulse Ox 100 12/20/24 11:15 O2 Del Method Room Air 12/20/24 11:15 BMI result Body Mass Index 37.5 Appearance: Alert. Oriented X1. No acute distress. Eyes: Pupils equal, round and reactive to light. ENT: Pharynx normal. atraumatic Neck: Normal inspection. Neck supple. CVS: Normal heart rate and rhythm. Pulses normal. Respiratory: No respiratory distress. Breath sounds normal. Abdomen: Soft and nontender. Skin: Skin warm and dry. Normal skin color. Extremities: No lower extremity edema. L wrist ttp, L knee and RUE contusion noted bicep and L knee Neuro: Oriented X 1. No motor deficit. No sensory deficit. Course Course Course Narrative: Shani updated with renal study Medications Administered Discontinued Medications Generic Name Dose Route Start Last Admin Trade Name Chikiq PRN Reason Stop Dose Admin Acetaminophen 975 mg 12/20/24 06:25 12/20/24 07:00 Acetaminophen 325 Mg Tablet PO 12/20/24 06:26 975 mg ONCE ONE Administration Magnesium Sulfate 2 gm in 50 mls @ 25 mls/hr 12/20/24 06:21 12/20/24 08:53 Magnesium Sulfate/H2o IV 12/20/24 08:20 Infused ONCE ONE Infusion Medical Decision Making Medical Decision Making MDM Narrative: 84 yo female with PMH of GERD, HTN, dementia, depression, CHF, HLD, arthritis, RBBB, ZAK, not on blood thinners here with c/o recurrent falls and signs of old bruises at this time other than URI there is no other signs will need EKG, labs, CT scans and xrays. She has mild L wrist injury. Wide differential of toxic, metabolic, trauma work up. Differential Diagnosis Differential Diagnoses: The differential diagnosis associated with the presentation includes rhabdo, trauma, urinary pathology, respiratory pathology anemia dehydration Admission/Observation Consideration of admission/observation: Escalation of care including admission/observation considered observation started at 1002am pending PT/CM cannot stay at assisted living facility qtc 511 but I do not suspect arrythmia, also has RBBB daughter Shani [phone] scan for kidney stones, patient will get imaging place in phys obs for PT/CM for safe dispo. daughter wants patient to go back to [facility] - she is HCP will dc, CT scan done no urgent urology needs can follow up with her urologist Lab Data MDM Lab Attestation statement: I reviewed the patient's lab results. 12/20/24 06:23 12/20/24 06:23 Labs: Lab Results 12/20/24 12/20/24 Range/Units 06:23 09:23 WBC 5.6 (4.8-10.8) X10*3/uL RBC 3.90 L (4.20-5.50) X10*6/uL Hgb 12.2 (12.0-16.0) g/dl Hct 36.3 L (37.0-47.0) % MCV 93.1 (80.0-98.0) fL MCH 31.3 (27.0-33.0) pg MCHC 33.6 (31.0-35.0) g/dl RDW 13.2 (11.0-16.0) % Plt Count 174 (160-400) X10*3/uL MPV 12.2 (9.4-12.3) fL Immature Gran % (Auto) 0.2 (0.0-0.4) % Neut % (Auto) 73.1 H (45-73) % Lymph % (Auto) 9.4 L (20-40) % [place] % (Auto) 15.4 H (2-11) % Eos % (Auto) 1.4 (0-4) % Baso % (Auto) 0.5 (0-2) % Lymph # (Auto) 0.5 L (1.2-4.9) X10*3/uL [place] # (Auto) 0.9 (0.1-1.2) X10*3/uL Eos # (Auto) 0.1 (0.0-0.4) X10*3/uL Baso # (Auto) 0.0 (0.0-0.2) X10*3/uL Abs Immat Gran (auto) 0.01 (0.00-0.03) X10*3/uL Absolute Neuts (auto) 4.1 (2.0-8.3) x10*3/uL Absolute Nucleated RBC 0.000 (0.0-0.012) X10*3/uL Nucleated RBC % (auto) 0.0 (0.0-0.2) /100WBC Sodium 139 (135-145) mmol/L Potassium 3.6 (3.3-5.1) mmol/L Chloride 105 (96-108) mmol/L Carbon Dioxide 25 (22-29) mmol/L Anion Gap 13 (12-20) BUN 17 H (9-16) mg/dL Creatinine 1.09 (0.5-1.4) mg/dL Estim Creat Clear Calc 47.1 Estimated GFR 48 Random Glucose 104 (60-115) mg/dL Calcium 9.3 (8.4-10.2) mg/dL Magnesium 2.0 (1.6-2.6) mg/dL Total Bilirubin 1.0 (0.0-1.0) mg/dL Direct Bilirubin 0.4 (0.0-0.5) mg/dL AST 27 (5-31) U/L ALT 9 (0-31) U/L Alkaline Phosphatase 101 (39-117) U/L Total Creatine Kinase 79 (26-140) U/L Troponin I High Sens 10.6 D (<3.5-17.0) ng/L C-Reactive Protein 0.39 (< or = 0.50) mg/dL Total Protein 6.5 (6.5-8.0) g/dL Albumin 4.1 (3.5-5.0) g/dL Urine Color Yellow Urine Appearance Clear Urine pH 6.5 (5.0-9.0) Ur Specific [place] <= 1.005 (1.005-1.025) Urine Protein Negative (Neg-Trace) mg/dL Urine Glucose (UA) Negative (Negative) mg/dL Urine Ketones Negative (Negative) mg/dL Urine Blood Negative (Negative) Urine Nitrite Negative (Negative) Ur Leukocyte Esterase Trace H (Negative) Urine RBC 0-2 (0-2) /HPF Urine WBC 0-5 (0-5) /HPF Ur Squamous Epith Cells 0-2 (0-2) /HPF Urine Bacteria None Seen (None Seen) Hyaline Casts 0-2 (0-2) /LPF COVID-19 (AMY) Negative (Negative) COVID-19 Clin Com See Note Influenza Type A (MOOSE) Negative (Negative) Influenza Type B (MOOSE) Negative (Negative) Influenza A & B Note See Note Independent Interpretation I performed an independent interpretation of an: EKG, Plain X-Ray (no fx) and CT Scan (no trauma) Interpretation: Rate: 87 Rhythm: NSR [place]: normal Normal P waves. Normal MIKE. RBBB ST T wave : sig artifact no KAYAL qTC: 515 prior studies: artifact The study has been interpreted contemporaneously by me. EKG #2 Rate: 82 Rhythm: NSR [place]: normal Normal P waves. Normal MIKE. RBBB ST T wave : artifact no KAYLA. qTC: 511 prior studies: no sig change The study has been interpreted contemporaneously by me. . Radiology Impression Discussion of test interpretation with radiology: I have reviewed the radiologist's reading. Independent Historian Clinical information obtained from an independent historian. History obtained from or confirmed by: EMS External Record Review External record reviewed: Outpatient record Discharge Plan Discharge Clinical Impression: Recurrent falls Patient Disposition: Home, Self-Care Instructions: Musculoskeletal Pain (ED) Additional Instructions: labs reassuring no urinary tract infection xrays of knee, chest, pelvis, wrist are neg for broken bones CT scan of head and cervical spine no trauma CT abdomen and pelvis shows persistent stones with mild hydronephrosis - should follow up with urology as soon as possible return for any worsening symptoms or concerns discussed STR placement but given outpatient services it was declined ADRENAL GLANDS: Unremarkable. KIDNEYS AND URETERS: There is a 5 x 9 mm nonobstructing stone in the lower pole left kidney. It has increased in size since the prior. There are approximately 5-6 stones in the right kidney. The largest is in the superior pole and measures 6 x 12 mm. The right ureter is slightly more dilated than on the previous. Both distal ureters and ureterovesicular junctions are obscured by metal artifact related to bilateral hip arthroplasty. BLADDER: Unremarkable. GASTROINTESTINAL TRACT: Diverticulosis is noted in the sigmoid colon. Gastrointestinal tract is otherwise unremarkable. ABDOMINAL WALL: No significant hernia is appreciated. LYMPH NODES: Normal. VASCULAR: Atherosclerotic calcifications are mild to moderate. PELVIC VISCERA: The region of the uterus is obscured by metal fragment related to bilateral hip arthroplasty. OSSEOUS STRUCTURES: There is 32 degrees levoscoliosis in the thoracal lumbar spine. There is moderate anterior degenerative disc disease and facet osteoarthritis. L5-S1 demonstrates grade 1, nearly grade 2 anterolisthesis with chronic bilateral pars intraarticular surface. Total hip arthroplasty is seen bilaterally, the distal femoral stems are not included in this study. There is moderate degenerative change in the pubic symphysis joint. There is mild degenerative change in the bilateral SI joints. Prescriptions: No Action Vitamin D (with calcium) 77-400 mg-unit Tablet PO amoxicillin-pot clavulanate 875-125 mg tablet 1 tab PO BID Qty: 14 0RF potassium chloride 20 mEq tablet,ER particles/crystals 20 meq PO DAILY duloxetine 60 mg capsule,delayed release(DR/EC) 60 mg PO DAILY pantoprazole 40 mg tablet,delayed release (DR/EC) 40 mg PO DAILY amlodipine 5 mg tablet 5 mg PO DAILY pravastatin 40 mg tablet 40 mg PO DAILY lisinopril 20 mg tablet 20 mg PO DAILY triamcinolone acetonide 0.1 % ointment topical nystatin 100,000 unit/gram powder topical ciclopirox 8 % solution topical furosemide 40 mg tablet 40 mg PO DAILY 90 Days Qty: 90 3RF Referrals: [facility] [Outside] Print Language: Maltese
[2024-12-20 06:28] LABS: MANUAL DIFF FLAG NO
[2024-12-20 06:30] LABS: Hematocrit 36.3 % (37.0-47.0); Hemoglobin 12.2 g/dl (12.0-16.0); Imm Gran Abs Auto 0.01 X10*3/uL (0.00-0.03); Imm Gran Pct Auto 0.2 % (0.0-0.4); Lymphocytes Absolute Auto 0.5 X10*3/uL (1.2-4.9); Mean Corpuscular HGB Conc 33.6 g/dl (31.0-35.0); Mean Corpuscular Hemoglobin 31.3 pg (27.0-33.0); Mean Corpuscular Volume 93.1 fL (80.0-98.0); NRBC Abs Auto 0.000 X10*3/uL (0.0-0.012); NRBC Pct Auto 0.0 /100WBC (0.0-0.2); Platelet Count 174 X10*3/uL (160-400); Red Blood Count 3.90 X10*6/uL (4.20-5.50); White Blood Count 5.6 X10*3/uL (4.8-10.8)
[2024-12-20 06:41] LABS: COVID-19 Test Negative (Negative); IDNOW Serial# 58CA691E
[2024-12-20 06:42] LABS: IDNOW Serial# 55D5AD1C; Influenza B2 Negative (Negative)
[2024-12-20 06:48] LABS: Alanine Aminotransferase 9 U/L (0-31); Albumin Level 4.1 g/dL (3.5-5.0); Alkaline Phosphatase 101 U/L (39-117); Anion Gap 13 (12-20); Aspartate Amino Transferase 27 U/L (5-31); Blood Urea Nitrogen 17 mg/dL (9-16); Calcium 9.3 mg/dL (8.4-10.2); Carbon Dioxide 25 mmol/L (22-29); Chloride 105 mmol/L (96-108); Creatinine Clr Calc Pharmacy 47.1; Estimated Glomerular Filt Rate 48; Magnesium 2.0 mg/dL (1.6-2.6); Potassium 3.6 mmol/L (3.3-5.1); Sodium 139 mmol/L (135-145); Total Protein 6.5 g/dL (6.5-8.0)
[2024-12-20] MEDS: Magnesium Sulfate/H2O 2 GM/50 ML PIGGYBACK IV (06:48)
--- OUTSIDE RECORDS SUMMARY | 2024-12-20 06:50 | XMS_ITS | Encounter Summary ---
Author Organization [facility] Address [address] [place] [address] [place] [address] Phone Care Team Providers Care Reinspector Name Role Phone Brayden Johnson MD Primary Care Prov ider Clarice Wilkerson MD Primary Care Provider +1- [phone] Rama Michele Primary Care Provider + [phone] Encounter Details Date Type Department Care Team (Late st Contact Info) Description 11/21/2019 Procedure Pass [facility], Ct Scan - [address] [address] Social History Tobacco Use Types Packs/Day Years [...] documented as of this encounter Care Teams Reinspector Relationship Specialty Start Date End Date Brayden Johnson MD PCP - General 01/02/17 Clarice Wilkerson MD PCP - General Family Medicine 12/28/19 04/26/20 Rama Michele PA [address] [place] [address] PCP - General Oyster Shipper 04/27/20 documented as of this encounter Additional Source Comments The information contained in this document represents components of the legal health record. It is not the complete legal health record.[facility]
--- OUTSIDE RECORDS SUMMARY | 2024-12-20 06:50 | XMS_ITS | Clinical Summary ---
Author Organization [facility] [place] [address] Care Team Providers Care Final Finisher Name Role Phone None Primary Care Provider [...] 75+ series) 2017 Covid-19 Vaccine ( season) 2024 Influenza (Flu) vaccine (1 o f 1 - Influenza standard series) 11/15/2024 Care Teams Final Finisher Relationship Specialty Start Date End Date None None PCP - General 09/30/13
--- OUTSIDE RECORDS SUMMARY | 2024-12-20 06:50 | XMS_ITS | Encounter Summary ---
Author Organization [facility] Address [address] [place] [address] Phone Care Team Providers Care Piping Design Specialist Name Role Phone Rama Michele Primary Care Provider [phone]- [phone] Reason for Referral * MRI/CAT Scan - Closed Specialty Diagnoses / Procedures Referred By Contac t Referred To Contact Radiology Diagnoses Nonintractable headache, unspecified chronicity pattern, unspecified headache type Procedures CT Head Rama Michele PA [address] [place] [address] Phone: tel: fax: Referral ID Status Reason Start Date Expiration Date Visits Re quested Visits Authorized [id number] Closed 02/17/2024 02/16/2025 1 1 Encounter Details Date Type Department Care Team (Latest Contact Info) Description 02/17/2024 Transcribe Orders Virtual Department [address] [place] [address] Rama Michele PA [address] [place] [address] Nonintractable headache, unspecified [...] type documented in this encounter Care Teams Piping Design Specialist Relationship Specialty Start Date End Date Rama Michele PA [address] [place] [address] PCP - General Supervisor Riprap Placing 04/27/20 documented as of this encounter Additional Source Comments The information contained in this document represents components of the legal health record. It is not the complete legal health record.[facility]
--- OUTSIDE RECORDS SUMMARY | 2024-12-20 06:50 | XMS_ITS | Patient Health Record ---
Author Organization [facility] Address [address] [place] [address] Care Team Providers Care Prepress Proofer Name Role Phone Rama Michele Primary Care Provider Alexander Fraga Unavailable [phone] Allergies Allergen (clinical drug ingredient) Drug/Non Drug [...] Orally Twic e a day Not-Taking Nystop 394788 UNIT/GM Externally Twice a day Active Multi [...] Clobetasol Propionate Not-Taking Clotrimazole-Betamethason e Not-Taking Nystatin-Triamcinolone 921718-2.1 UNIT/GM Externally Twice a day Active Fluocinonide [...] W/U Status Risk Notes Problem Tinea unguium (988676722) Tinea unguium (B35.1) Active confirmed Plan Of Treatment Pending Test Test Name Order Date X ray : Foot, left 2V 04/20/2014 X ray : Foot, right 2V 04/20/2014 [id number] NAIL, 6 OR MORE 07/20/2014 [id number] NAIL, 6 OR MORE 10/05/2014 [id number] NAIL, 6 OR MORE 12/21/2014 [id number] NAIL, 6 OR MORE 03/01/2015 [id number] NAIL, 6 OR MORE 05/31/2015 [id number] NAIL, 6 OR MORE 08/30/2015 [id number] NAIL, 6 OR MORE 11/29/2015 [id number] NAIL, 6 OR MORE 02/28/2016 [id number] NAIL, 6 OR MORE 06/05/2016 [id number] NAIL, 6 OR MORE 08/28/2016 [id number] NAIL, 6 OR MORE 11/27/2016 [id number] NAIL, 6 OR MORE 02/19/2017 [id number] NAIL, 6 OR MORE 04/24/2017 [id number] NAIL, 6 OR MORE 07/23/2017 [id number] NAIL, 6 OR MORE 11/12/2017 [id number] NAIL, 6 OR MORE 02/11/2018 [id number] NAIL, 1-5 10/05/2014 [id number] NAIL, 1-5 07/20/2014 [id number] NAIL, 1-5 04/20/2014 48557, [id number]-AUBFZ/INJECT, JOINT/BURSA 1 47379, J0702- Neuroma/Injection 12/22/19 15 Insurance Providers Payer Name Payer Address Payer Phone Subscriber Number Group Number Insured Name Patient Relationship to Insured Coverage Start Date Coverage End Date Medicare National Govt Svcs Inc [address] [facility] [place] [address] [id number] Anna Mallory Self - patient is the insured [employer] [address] [place] [address] [id number] Anna Mallory Self - patient is the insured Medical (General) History Medical History History ICD Code osteoarthritis asthma Broken bones Cataracts Fibromyalgia Headaches High blood pressure Eczema Scarlet fever Rheumatic fever Sciatica Measles Mumps Chicken pox Joint implants/screws Transfusions Surgical History Surgery Date(Month/Year) bilateral hip replacement 08/2011 L - R shoulder surgery both nuroma on right foot removed 1990 tubes tied 1976 hysterectomy 1989 Right and left cataract surgery 08/2014 Hospitalization History Reason Date(Month/Year) HH low sodium 11/2016 [facility] ER panic attack 01/2017 [facility]- Flu 05/2017 [facility] carple tunnel surgery 05/2018
--- OUTSIDE RECORDS SUMMARY | 2024-12-20 06:50 | XMS_ITS | Encounter Summary ---
Author Organization [facility] Address [address] [place] [address] Phone Care Team Providers Care Manager Requirements Name Role Phone Rama Michele Primary Care Provider +1- [phone] Encounter Details Date Type Department Care Team (Late st Contact Info) Description 04/27/2020 Procedure Pass [facility] Admitting Dept Virtual Department [address] [place] [address] Social History Tobacco Use Types Packs/Day Years [...] 04/29/2020 4:47 PM Kecia Urban RN * [place] Suicide Severity Rating Scale (Screener/Recent Self-Report) Question [...] documented as of this encounter Care Teams Manager Requirements Relationship Specialty Start Date End Date Rama Michele PA [address] [place] [address] PCP - General Fleet Administrator 04/27/20 documented as of this encounter Additional Source Comments The information contained in this document represents components of the legal health record. It is not the complete legal health record.[facility]
--- OUTSIDE RECORDS SUMMARY | 2024-12-20 06:50 | XMS_ITS | Encounter Summary ---
Author Organization [facility] Address [address] [place], [place] [id number] Phone Care Team Providers Care Brush Holder Assembler Name Role Phone Rama Michele Primary Care Provider +1- [phone] Encounter Details Date Type Department Care Team (Late st Contact Info) Description 07/26/2020 Procedure Pass [facility], [address] [address] Social History Tobacco Use Types Packs/Day Years [...] documented as of this encounter Care Teams Brush Holder Assembler Relationship Specialty Start Date End Date Rama Michele PA [address] [place] [address] PCP - General Steam Shovel Engineer 04/27/20 documented as of this encounter Additional Source Comments The information contained in this document represents components of the legal health record. It is not the complete legal health record.[facility]
--- OUTSIDE RECORDS SUMMARY | 2024-12-20 06:50 | XMS_ITS | Encounter Summary ---
Author Organization [facility] Address [address] [place], [place] [phone] Phone Care Team Providers Care Emergency Medical Service Coordinator Name Role Phone Rama Michele Primary Care Provider +1- [phone] Encounter Details Date Type Department Care Team (Late st Contact Info) Description 01/15/2022 Procedure Pass [facility], Ct Scan - [address] [address] Social History Tobacco Use Types Packs/Day Years [...] 4:05 PM EDT Jerica Gates RN * [place] Suicide Severity Rating Scale (Screener/Recent Self-Report) Question Answer Date of Assessment Author 1. Wish to be (Past 1 Month) No 01/15/2022 4:05 PM EDT Jerica Gates RN 2. Non-Specific Active Suici purvi Thoughts (Past 1 Month) No 01/15/2022 4:05 PM EDT Sejal Gates RN 6. Suicidal Behavior (Lifetime) No 4:05 PM EDeJrica Wei RN documented as of this encounter [...] documented as of this encounter Care Teams Emergency Medical Service Coordinator Relationship Specialty Start Date End Date Rama Michele PA [address] [place] [address] PCP - General Personal Carer 04/27/20 documented as of this encounter Additional Source Comments The information contained in this document represents components of the legal health record. It is not the complete legal health record.[facility]
--- OUTSIDE RECORDS SUMMARY | 2024-12-20 06:50 | XMS_ITS | Encounter Summary ---
Author Organization [facility] Address [address] [place] [address] Phone Care Team Providers Care Talcer Name Role Phone Rama Michele Primary Care Provider +1- [phone] Encounter Details Date Type Department Care Team (Late st Contact Info) Description 05/23/2020 Ancillary Orders [facility] [address] [place] [address] [phone] Charley Boateng PA-C [address] [place] [address] Orthopedics & Sports Medicine, [facility] [place] [address] [email or web address] Social History Tobacco Use Types Packs/Day Years [...] documented as of this encounter Care Teams Talcer Relationship Specialty Start Date End Date Rama Michele PA [address] [place] [address] PCP - General Supervisor Printing Shop 04/27/20 documented as of this encounter Additional Source Comments The information contained in this document represents components of the legal health record. It is not the complete legal health record.[facility]
--- OUTSIDE RECORDS SUMMARY | 2024-12-20 06:50 | XMS_ITS | Encounter Summary ---
Author Organization [facility] Address [address] [place] [address] [place] [address] Phone Care Team Providers Care Application Designer Name Role Phone Brayden Johnson MD Primary Care Prov ider Clarice Wilkerson MD Primary Care Provider +1- [phone] Rama Michele Primary Care Provider + [phone] Encounter Details Date Type Department Care Team (Late st Contact Info) Description 11/21/2019 Procedure Pass [facility], Ct Scan - [address] [address] Social History Tobacco Use Types Packs/Day Years [...] documented as of this encounter Care Teams Application Designer Relationship Specialty Start Date End Date Brayden Johnson MD PCP - General 01/02/17 Clarice Wilkerson MD PCP - General Family Medicine 12/28/19 04/26/20 Rama Michele PA [address] [place] [address] PCP - General Facilities Engineering Manager 04/27/20 documented as of this encounter Additional Source Comments The information contained in this document represents components of the legal health record. It is not the complete legal health record.[facility]
--- OUTSIDE RECORDS SUMMARY | 2024-12-20 06:50 | XMS_ITS | Encounter Summary ---
Author Organization [facility] Address [address] [place] [address] Phone Care Team Providers Care Underground Truck Operator Name Role Phone Rama Michele Primary Care Provider +1- [phone] Reason for Referral * Outpatient Procedure - Closed Specialty Diagnoses / Procedures Referred By Contfrancine t Referred To Contact Diagnoses Chronic diastolic heart failure Procedures Adult Echo TTE Rama Michele PA [address] [place] [address] Phone: tel: fax: Referral ID Status Reason Start Date Expiration Date Visits Re quested Visits Authorized [id number] Closed 02/06/2024 02/05/2025 1 1 Encounter Details Date Type Department Care Team (Latest Contact Info) Description 02/06/2024 Transcribe Orders Virtual Department [address] [place] [address] Rama Michele PA [address] [place] [id number] Chronic diastolic heart failure (Primary Dx) Social [...] failure documented in this encounter Care Teams Underground Truck Operator Relationship Specialty Start Date End Date Rama Michele PA [address] [place] [address] PCP - General Mri Assistant 04/27/20 documented as of this encounter Additional Source Comments The information contained in this document represents components of the legal health record. It is not the complete legal health record.[facility]
--- OUTSIDE RECORDS SUMMARY | 2024-12-20 06:50 | XMS_ITS | Encounter Summary ---
Author Organization [facility] Address [address] [place] [address] Phone Care Team Providers Care Compress Engineer Name Role Phone Rama Michele Primary Care Provider +1- [phone] Encounter Details Date Type Department Care Team (Late st Contact Info) Description 05/23/2020 Ancillary Orders [address] [id number] Charley Boateng PA-C [address] [place] [address] Orthopedics & Sports Medicine, [facility] [place] [address] [email or web address] Wrist pain, acute, left Social History Tobacco [...] documented as of this encounter Care Teams Compress Engineer Relationship Specialty Start Date End Date Rama Michele PA [address] [place] [address] PCP - General Retail Wireless Sales Consultant 04/27/20 documented as of this encounter Additional Source Comments The information contained in this document represents components of the legal health record. It is not the complete legal health record.[facility]
--- OUTSIDE RECORDS SUMMARY | 2024-12-20 06:50 | XMS_ITS | Encounter Summary ---
Author Organization [facility] Address [address] [place] [address] Phone Care Team Providers Care Front Desk Monitor Name Role Phone Brayden Johnson MD Primary Care Prov ider Clarice Wilkerson MD Primary Care Provider +1- [phone] Rama Michele Primary Care Provider +- [phone] Encounter Details Date Type Department Care Team (Latest Contact Info) Description 11/26/2019 Transcribe Orders Virtual Department 30 [place] [address] Martina Kay PA-C [address], [place] [place] [address] [email or web address] Dysphagia, pharyngoesophageal phase (Primary Dx) Social [...] min. 18 sec; 103 IMAGES/FRAMES POS - [id number] Narrative 12/01/2019 9:21 AM EDT COMPARISON: None [...] min. 18 sec; 103 IMAGES/FRAMES POS - [id number] Martina Kay PA-C IMG FL MISC Final [...] documented as of this encounter Care Teams Front Desk Monitor Relationship Specialty Start Date End Date Brayden Johnson MD PCP - General 01/02/17 Clarice Wilkerson MD PCP - General Family Medicine 12/28/19 04/26/20 Rama Michele PA [address] [place] [address] PCP - General Salvage Worker 04/27/20 documented as of this encounter Additional Source Comments The information contained in this document represents components of the legal health record. It is not the complete legal health record.[facility]
--- OUTSIDE RECORDS SUMMARY | 2024-12-20 06:50 | XMS_ITS | Clinical Summary ---
Author Organization [facility] Address [address] [place], [place] [id number] Phone Care Team Providers Care Emt Paramedic Name Role Phone Rama Michele Primary Care Provider +1- [phone] Allergies Active Allergy Reactions Criticality Noted Date [...] Additional Information Patient not taking.Reason: Other, Informant: Senior Living Advisor, Reported on 01/18/2022 inhaler spacing device (AEROCHAMBER,BR [...] this side done by Dr. Gutierrez at [facility] about 10 years ago. Apparently x-rays did [...] by Dr. Gutierrez of [facility] in [place], [place]. Traumatic hematoma of knee, left, initial [...] this topic Medical Devices Implanted Type Area Preprint Analyst Device Identifier Shelf Expiration Date Model / Serial / Lot Bilat Hip/Knee Replacements,Lt Shoulder Screws Procedures Procedure Name Priority Date/Time Associated Diagnosis Comments BASIC METABOLIC PANEL STAT 01/15/2022 4:18 PM EDT from Last 3 Months or Most Recently Relevant to Health Maintenance Results * (ABNORMAL) Basic metabolic panel (01/15/2022 4:18 PM EDT) SODIUM 141 133 - 146 mmol/L [facility] CHLORIDE 102 96 - 108 mmol/L [facility] POTASSIUM 3.5 3.3 - 5.1 mmol/L [facility] CO2 28 21 - 35 mmol/L [facility] BUN 12 6 - 19 mg/dL [facility] CREATININE 1.10 0.5 - 1.5 mg/dL [facility] GLUCOSE 121(H) 70 - 99 mg/dL [facility] CALCIUM 9.5 8.4 - 10.3 mg/dL [facility] EGFR 51(L) >59 mL/min/1.7 3m2 [facility] Comment:Estimated glomerular filtration rate calculated using the CKD-EPI refit equation. ANION GAP 15 10 - 20 mmol/L [facility] Blood 01/15/2022 4:18 PM EDT 01/15/2022 4:32 PM EDT Farrah A Pressey PA LAB BLOOD ORDERABLES Final Result [facility] [address] [place], [place] [id number] from Last 3 Months or Most Recently Relevant to Health Maintenance Insurance MEDICARE PART A & B [employer] PCP REQ SUPPLEMENT MEDICARE PART A & B [employer] PCP REQ SUPPLEMENT MEDICARE PART A & B [employer] MEDEX PCP REQ SUPPLEMENT MEDICARE PART A & B [facility] MEDEX PCP REQ SUPPLEMENT MEDICARE PART A & B [employer] PCP REQ SUPPLEMENT MEDICARE PART A & B [employer] MEDEX PCP REQ SUPPLEMENT MEDICARE PART A & B [employer] MEDEX PCP REQ SUPPLEMENT MEDICARE PART A & B [employer] PCP REQ SUPPLEMENT MEDICARE PART A & B [employer] PCP REQ SUPPLEMENT Advance Directives For more information, please contact: [phone] (9AM - 5PM [place], Friday-Friday) Documents on File Type Date Recorded Patient Braille Transcriber Expl anation Healthcare Proxy 01/16/2022 FREYA HCP dimas r copy Healthcare Agents on File Name Relationship Healthcare Agent Relationshi p Communication Shani Quinones Daughter Alternate Health care Agent (Proxy form on file) Care Teams Emt Paramedic Relationship Specialty Start Date End Date Rama Michele PA [address] [place] [address] PCP - General Client Executive 04/27/20 Additional Source Comments The information contained in this document represents components of the legal health record. It is not the complete legal health record.[facility]
--- OUTSIDE RECORDS SUMMARY | 2024-12-20 06:50 | XMS_ITS | Encounter Summary ---
Author Organization [facility] Address [address] [place], [place] [phone] Phone Care Team Providers Care Marine Fuel Dock Attendant Name Role Phone Rama Michele Primary Care Provider +1- [phone] Reason for Referral * MRI/CAT Scan - Closed Specialty Diagnoses / Procedures Referred By Contac t Referred To Contact Radiology Diagnoses Dementia without behavioral disturbance, unspecified dementia type Procedures MRI Brain Bogdan Navarro MD, PhD Phone: tel: fax: [email or web address] Referral ID Status Reason Start Date Expiration Date Visits Re quested Visits Authorized Closed 07/26/2020 07/26/2021 1 1 Encounter Details Date Type Department Care Team (Latest Contact Info) Description 07/26/2020 Transcribe Orders Virtual Department [address] [place] [address] Bogdan Navarro MD, PhD [address] [place] [address] [email or web address] Dementia without behavioral disturbance, unspecified dementia type [...] documented as of this encounter Care Teams Marine Fuel Dock Attendant Relationship Specialty Start Date End Date Rama Michele PA [address] [place] [address] PCP - General Project Portfolio Analyst 04/27/20 documented as of this encounter Additional Source Comments The information contained in this document represents components of the legal health record. It is not the complete legal health record.[facility]
--- OUTSIDE RECORDS SUMMARY | 2024-12-20 06:50 | XMS_ITS | Encounter Summary ---
Author Organization [facility] Address [address] [place], [place] [address] Phone Care Team Providers Care Cloth Inspector Name Role Phone Rama Michele Primary Care Provider +1- [phone] Reason for Referral * MRI/CAT Scan - Closed Specialty Diagnoses / Procedures Referred By Contac t Referred To Contact Radiology Diagnoses Left arm pain Procedures CT Humerus (Left) Khushi Albert NP [address] [place] [address] Phone: tel: fax: Referral ID Status Reason Start Date Expiration Date Visits Re quested Visits Authorized [id number] Closed 08/29/2022 1 1 Encounter Details Date Type Department Care Team (Late st Contact Info) Description 08/29/2022 Transcribe Orders Virtual Department 30 [place] [address] Khushi Albert NP [address] [place] [address] [phone] Left arm pain (Primary Dx) Social History [...] focal bony lesion. No fracture. Khushi Albert FAMILY SERVICE CASEWORKER IMG CT EXTREMITY Final Result documented in this encounter Visit Diagnoses Diagnosis Left arm pain- Primary Pain in soft tissues of limb Left arm pain Pain in soft tissues of limb documented in this encounter Care Teams Cloth Inspector Relationship Specialty Start Date End Date Rama Michele PA [address] [place] [address] PCP - General Health Teacher 04/27/20 documented as of this encounter Additional Source Comments The information contained in this document represents components of the legal health record. It is not the complete legal health record.[facility]
--- OUTSIDE RECORDS SUMMARY | 2024-12-20 06:50 | XMS_ITS | Encounter Summary ---
Author Organization [facility] Address [address] [place], [place] [phone] Phone Care Team Providers Care Grain Elevator Operator Name Role Phone Rama Michele Primary Care Provider +1- [phone] Encounter Details Date Type Department Care Team (Late st Contact Info) Description 02/17/2024 Procedure Pass [facility], Ct Scan - [address] [address] Social History Tobacco Use Types Packs/Day Years [...] on filedocumented in this encounter Care Teams Grain Elevator Operator Relationship Specialty Start Date End Date Rama Michele PA [address] [place] [address] PCP - General Utility Maintenance Worker 04/27/20 documented as of this encounter Additional Source Comments The information contained in this document represents components of the legal health record. It is not the complete legal health record.[facility]
--- OUTSIDE RECORDS SUMMARY | 2024-12-20 06:50 | XMS_ITS | Encounter Summary ---
Author Organization [facility] Address [address] [place] [address] Phone Care Team Providers Care Electric Motor Winders Assembler Name Role Phone Rama Michele Primary Care Provider +1- [phone] Encounter Details Date Type Department Care Team (Late st Contact Info) Description 02/06/2024 Procedure Pass [facility] [address] [place] [address] Social History Tobacco Use Types Packs/Day Years [...] on filedocumented in this encounter Care Teams Electric Motor Winders Assembler Relationship Specialty Start Date End Date Rama Michele PA [address] [place] [address] [phone] PCP - General Hydraulic Dredge Operator 04/27/20 documented as of this encounter Additional Source Comments The information contained in this document represents components of the legal health record. It is not the complete legal health record.[facility]
--- OUTSIDE RECORDS SUMMARY | 2024-12-20 06:50 | XMS_ITS | Encounter Summary ---
Author Organization [facility] Address [address] [place] [address] Phone Care Team Providers Care Mid Level Practitioner Name Role Phone Rama Michele Primary Care Provider +1- [phone] Encounter Details Date Type Department Care Team (Latest Contact Info) Description 08/22/2024 Transcribe Orders Virtual Department 30 [place] [address] Rama Michele PA [address] [place] [address] [place] [address] Asymptomatic menopausal state (Primary Dx) [...] Primary documented in this encounter Care Teams Mid Level Practitioner Relationship Specialty Start Date End Date Rama Michele PA [address] [place] [address] PCP - General Program Manager Slp 04/27/20 documented as of this encounter Additional Source Comments The information contained in this document represents components of the legal health record. It is not the complete legal health record.[facility]
--- OUTSIDE RECORDS SUMMARY | 2024-12-20 06:50 | XMS_ITS | Encounter Summary ---
Author Organization [facility] Address [address] [place], [place] [phone] Phone Care Team Providers Care Intellectual Property Legal Assistant Name Role Phone Rama Michele Primary Care Provider +1- [phone] Encounter Details Date Type Department Care Team (Late st Contact Info) Description 08/29/2022 Procedure Pass [facility], Ct Scan - [address] [address] Social History Tobacco Use Types Packs/Day Years [...] on filedocumented in this encounter Care Teams Intellectual Property Legal Assistant Relationship Specialty Start Date End Date Rama Michele PA [address] [place] [address] PCP - General Clocksmith 04/27/20 documented as of this encounter Additional Source Comments The information contained in this document represents components of the legal health record. It is not the complete legal health record.[facility]
[2024-12-20 06:56] LABS: Troponin-I High Sensitivity 10.6 ng/L (<3.5-17.0)
--- NOTE | 2024-12-20 07:00 | PC.NURSE ---
20g IV LAC. pt oriented to self only
--- NOTE | 2024-12-20 09:11 | ECG_ITS ---
Test Reason : RECHECK QTC Blood Pressure : */* mmHG Vent. Rate : 82 BPM Atrial Rate : 82 BPM P-R Int : 208 ms QRS Dur : 138 ms QT Int : 438 ms P-R-T Axes : 41 38 25 degrees QTcB Int : 511 ms Normal sinus rhythm Right bundle branch block Abnormal ECG When compared with ECG of 20-Dec-2024 06:16, Previous ECG has undetermined rhythm, needs review Referred By: Nicole Alas Electronically Signed By: MARC BACH MD
[2024-12-20 09:30] LABS: Appearance Urine Clear; Glucose Urine UA Negative (Negative); PH 6.5 (5.0-9.0); Specific Gravity - Urine <= 1.005 (1.005-1.025); UMIC TRIGGER UACC YES
--- NOTE | 2024-12-20 11:23 | PC.NURSE ---
Pt remains oriented to self. Follows commands well but is not oriented to place or time. Daughter called in [facility] for update- states this is almost pt baseline but she is concerned about increases inability to stay at same LOC where she lives, Info passed on to DR Alas. Pt straight cathed earlier - jaimee procedure well, Urine was kught yellow and clear. Pt resting comfortably, turned and repositioned and pericare given as pt was incontinent prior to cath.
--- NOTE | 2024-12-20 13:47 | MHC.CM.ED ---
Received case management consult from Dr Alas. Patient came to the ER from [facility] d/t fall. Daughter, Shani, is concerned because patient has been falling lately. Work up essentially negative. Physical therapy eval completed. Short term rehab is recommended. Attempted to meet with patient in regards to discharge planning. Patient has history of dementia. Spoke with patient's daughter, Shani, via telephone at [phone]. Shani verified patient is from [facility]. Shani is concerned that patient fell twice last night and 6 weeks ago prior to that. Shani verifies patient is active with [facility] and patient has not had inpatient hospital stay in the past 30 days. Private pay SNF discussed with Shani. Shain does not feel patient will do well in [facility] and is requesting patient return to [facility] with resumption of [facility]. Lisa FERNANDO booked for 330pm. [facility] with chart. Patient, Aleyda Mcleod RN and Dr Alas aware. Continue to monitor for d/c needs.
== END 2024-12-20 16:32 | disposition home or self-care (01) ==
PROVIDERS: Emergency Provider Emergency Medicine; PCP Physician Assistant Medical
DX: S89.92XA Unspecified injury of left lower leg, initial encounter (principal); S69.92XA Unspecified injury of left wrist, hand and finger(s), initial encounter; W06.XXXA Fall from bed, initial encounter; Y93.9 Activity, unspecified; Y92.9 Unspecified place or not applicable; Y99.9 Unspecified external cause status; R05.9 Cough, unspecified; R94.31 Abnormal electrocardiogram [ECG] [EKG]; R41.0 Disorientation, unspecified; M25.562 Pain in left knee; R10.A0 Flank pain, unspecified side; Z03.818 Encounter for observation for suspected exposure to other biological agents ruled out
CPT/HCPCS: 70450; 71045; 72125; 72170; 73110; 73560; 74176; 80048; 80076; 81001; 82550; 83735; 84484; 85025; 86140; 87502; 87635; 93005; 96365; 96366; 97162; 99284; J3475

== ENCOUNTER → 2024-12-20 05:57 | Outpatient (BNV) | payer MEDICARE, SELFPAY | PROVIDERS: Emergency Provider Emergency Medicine; PCP Physician Assistant Medical; Visit Provider Specialist | DX: J98.4 Other disorders of lung (principal); M85.842 Other specified disorders of bone density and structure, left hand; M18.12 Unilateral primary osteoarthritis of first carpometacarpal joint, left hand; Z87.81 Personal history of (healed) traumatic fracture; Z04.3 Encounter for examination and observation following other accident; Z96.643 Presence of artificial hip joint, bilateral; M25.562 Pain in left knee; Z96.652 Presence of left artificial knee joint; W06.XXXA Fall from bed, initial encounter | CPT/HCPCS: 71045; 72170; 73110; 73560 ==

== ENCOUNTER → 2024-12-20 05:57 | Outpatient (BNV) | payer MEDICARE, SELFPAY | PROVIDERS: Emergency Provider Emergency Medicine; PCP Physician Assistant Medical; Visit Provider Internal Medicine Cardiovascular Disease | DX: I45.10 Unspecified right bundle-branch block (principal) | CPT/HCPCS: 93010 ==

== ENCOUNTER 2025-02-01 15:03 | Emergency (ER) | payer MEDICARE, SELFPAY ==
[2025-02-01 15:10] VITALS: BP 138/70; BP 150/90; PULSE 84; PULSE 97; RESP 18; TEMP 36.9; O2SAT 96; O2SAT 99; BMI 35.7
--- NOTE | 2025-02-01 15:30 | ED.GENADULT ---
HPI - General Adult General Chief complaint: Weakness Stated complaint: SNF concerned pt is weak dizzy and pale Time Seen by Provider: 02/01/25 15:30 Source: patient, family (patient's healthcare proxy / daughter Shani via the phone) and EMS Mode of arrival: EMS Limitations: physical limitation (patient is demented at baseline) History of Present Illness ED Provider: Dolly Tillman PA-C HPI narrative: Patient is am 85 year old assigned female at with a history of GERD, HTN, Dementia, depression, CHF, HLD, arthritis, RBBB, and ZAK presenting to the emergency department today after an episode of being pale / weak / dizzy per [facility] staff. Patient denies any complaints at this time and states that she does not want to be here and to call her daughter. I called her daughter / healthcare proxy Shani who stated [facility] tried to call her when EMS was there and she missed it because she is at work. Shani states that she would have declined transport had she answered given the patient is feeling fine with stable vital signs. Shani states that she does not want any medical work up done and the patient can be discharged by to the [facility]. Related Data Home Medications ?Medication ?Instructions ?Recorded ?Confirmed amlodipine 5 mg tablet 5 mg PO DAILY 11/15/20 02/13/23 duloxetine 60 mg capsule,delayed 60 mg PO DAILY 11/15/20 03/06/22 release lisinopril 20 mg tablet 20 mg PO DAILY 11/15/20 03/06/22 pantoprazole 40 mg tablet,delayed 40 mg PO DAILY 11/15/20 03/06/22 release potassium chloride 20 mEq 20 meq PO DAILY 11/15/20 03/06/22 tablet,extended release(part/cryst) pravastatin 40 mg tablet 40 mg PO DAILY 11/15/20 02/13/23 ciclopirox 8 % topical solution topical 03/06/22 03/06/22 nystatin 100,000 unit/gram topical topical 03/06/22 03/06/22 powder triamcinolone acetonide 0.1 % topical 03/06/22 03/06/22 topical ointment calcium phosphate,dibasic 77 tab PO 02/13/23 02/13/23 mg-vitamin D3 400 unit tablet Previous Rx's ?Medication ?Instructions ?Recorded furosemide 40 mg tablet 40 mg PO DAILY 90 days #90 tabs 03/06/22 amoxicillin 875 mg-potassium 1 tab PO BID #14 tabs 02/13/23 clavulanate 125 mg tablet Allergies Allergy/AdvReac Type Severity Reaction Status Date / Time latex (Latex) Allergy Mild RASH Verified 02/01/25 15:12 celecoxib (From CELEBREX) Allergy Unknown RASH Verified 02/01/25 15:12 Ehrenberg And Derivatives Allergy Unknown RASH ON Verified 02/01/25 15:12 FACE egg Allergy Unknown RASH FROM Verified 02/01/25 15:12 EGG WHITES gabapentin (GABAPENTIN) Allergy Unknown RASH Verified 02/01/25 15:12 lactose (LACTOSE) Allergy Unknown INTOLERANT Verified 02/01/25 15:12 peas Allergy Unknown FROM Verified 02/01/25 15:12 TESTING RESULT vancomycin (VANCOMYCIN) Allergy Unknown UNKNOWN Verified 02/01/25 15:12 hydrocodone (HYDROCODONE) AdvReac Unknown ABDOMINAL Verified 02/01/25 15:12 PAIN saccharin (SACCHARIN) AdvReac Unknown HEADACHE Verified 02/01/25 15:12 JEWELRY Allergy Unknown RASH Uncoded 02/01/25 15:12 PLASTIC Allergy Unknown RASH Uncoded 02/01/25 15:12 Review of Systems Constitutional: Constitutional: Reports as per HPI Eyes: Eyes: Reports as per HPI ENT: Reports as per HPI Cardiovascular: Cardiovascular: Reports as per HPI Respiratory: Respiratory: Reports as per HPI Gastrointestinal: Gastrointestinal: Reports as per HPI Genitourinary: Genitourinary: Reports as per HPI Musculoskeletal: Musculoskeletal: Reports as per HPI Integumentary/Breasts: Skin/Breast: Reports as per HPI Neurologic: Reports as per HPI Psychiatric: Psychiatric: Reports as per HPI Endocrine: Endocrine: Reports as per HPI Hematologic/Lymphatic: Hematologic/Lymphatic: Reports as per HPI Allergic/Immunologic: Allergic/Immunologic: Reports as per HPI PMF Past Medical History Attestation statement: The following information was validated with the patient. (all information validated with the patient's daughter Shani) Source: old records reviewed, obtained from family (patient's daughter Shani provided additional history) and nursing notes reviewed Medical History ZAK (obstructive sleep apnea) RBBB Chronic heart failure with preserved ejection fraction (HFpEF) Essential hypertension Surgical History No pertinent past surgical history Family History Family History Father No problems noted. Mother No problems noted. Social History Social History Alcohol intake: never Patient Tobacco Use Status: Never used Tobacco Advance Directives: Yes Advance Directives on File: Yes Advance Directives Date on File: 11/29/24 Do you have a plan to hurt others: No Plan Physical Exam ED Vital Signs: Vital Signs - 24 hr 02/01/25 15:10 Temperature 98.5 F Pulse Rate 97 Respiratory Rate 18 Blood Pressure 138/70 Pulse Oximetry 99 Oxygen Delivery Method Room Air BMI result Body Mass Index 35.7 Const General: cooperative, no acute distress, alert and awake Nutritional Appearance: well nourished Orientation/consciousness: oriented to person HENMT Head: Yes normal to inspection and Yes atraumatic Ears: hearing grossly normal bilaterally and external ears normal General nose exam: Normal external nose present, no nasal discharge noted and no epistaxis Face and sinus: Yes normal facial exam, No abrasion and No laceration Mouth: Normal oral and palatal mucosa present, no drooling and no muffled voice Eyes General: appearance normal, both eyes and all related structures Periorbital: periorbital findings normal Eyelids: Yes eyelids normal Conjunctivae: conjunctivae normal Pupils: Equal, round and reactive pupils present EOM: EOMs intact bilaterally Neck Neck: Yes normal visual inspection and Yes full ROM Resp Effort & Inspection: normal respiratory effort and able to speak in complete sentences Neuro Other: confused per her baseline General: oriented to person, moves all extremities and CN's II-XI intact bilaterally Cranial nerves: Yes Equal, round and reactive pupils present Extrem General: Yes normal to inspection, Yes full ROM and Yes capillary refill normal Psych Appearance: grossly normal Mental Status: mental status grossly normal Medical Decision Making Medical Decision Making MDM Narrative: Patient is am 85 year old assigned female at with a history of GERD, HTN, Dementia, depression, CHF, HLD, arthritis, RBBB, and ZAK presenting to the emergency department today after an episode of being pale / weak / dizzy per [facility] staff. Patient's physical exam was as noted in the physical exam portion of this note and consistent with her baseline. I explained my physical exam findings to the patient and the patient's daughter Shani. I answered all questions asked by the patient and the patient's daughter Shani. I stressed the importance of the patient taking her medication as directed (either prescribed or as the over the counter packaging recommends). I stressed the importance of the patient following up with her primary care provider. I stressed the importance of the patient returning to the emergency department immediately if she were to develop any dizziness, shortness of breath, difficulty breathing, chest pain, blurry vision, loss of vision, nausea, vomiting, abdominal pain, fever, chills, back pain, or any other complaints. Patient and the patient's daughter Shani verbalized agreement and understanding with this treatment plan and discharge back to [facility]. Differential Diagnosis Differential Diagnoses: The differential diagnosis associated with the presentation includes Dementia Physical examination Admission/Observation Consideration of admission/observation: Escalation of care including admission/observation considered Patient would have been admitted to the hospital had her clinical presentation warranted hospital admission. Independent Historian Clinical information obtained from an independent historian. History obtained from or confirmed by: EMS (EMS provided additional history and confirmed the history provided by the patient and her daughter.) Discharge Plan Discharge Clinical Impression: Normal physical exam, Dementia Patient Disposition: [facility] Transfer Details: Back to [facility] Instructions: Dementia (ED), Normal Exam (ED) Additional Instructions: IF you are prescribed home medications and/or you are taking over the counter medications at home - it is very important you continue to do so as prescribed / directed unless told otherwise. Follow up with your primary care provider. Return to the emergency department immediately if you develop any numbness, tingling, dizziness, shortness of breath, difficulty breathing, chest pain, blurry vision, loss of vision, nausea, vomiting, abdominal pain, fever, chills, back pain, or any other complaints. Please see the information below about our Patient Portal. If you are not yet enrolled in the [facility] Patient Portal, you will receive an enrollment email invitation following your visit to any [facility] care setting. You may also self-enroll in the Patient Portal by visiting our website: [email or web address] The following information is required to access the Patient Portal: - Your [facility] Medical Record Number - Your personal home email address (must match what is in your electronic medical record, Registration staff can assist with this) - Name - Date of Capabilities of the Patient Portal: - Message some providers - View upcoming appointments - Access your health summary, medical history, and visit history - View current conditions and allergies - View procedure and lab results - View your medications, including guidelines, side effects, and precautions - Complete pre-appointment questionnaires requested by your provider - Ready summary reports of your office visits and procedures To access the Patient Portal Mobile Kenny, follow these directions: - Search Reissued in the Kenny Store or [employer] Store - Download the Kenny - Search for [facility] - Enter your login/password Prescriptions: No Action Vitamin D (with calcium) 77-400 mg-unit Tablet PO amoxicillin-pot clavulanate 875-125 mg tablet 1 tab PO BID Qty: 14 0RF potassium chloride 20 mEq tablet,ER particles/crystals 20 meq PO DAILY duloxetine 60 mg capsule,delayed release(DR/EC) 60 mg PO DAILY pantoprazole 40 mg tablet,delayed release (DR/EC) 40 mg PO DAILY amlodipine 5 mg tablet 5 mg PO DAILY pravastatin 40 mg tablet 40 mg PO DAILY lisinopril 20 mg tablet 20 mg PO DAILY triamcinolone acetonide 0.1 % ointment topical nystatin 100,000 unit/gram powder topical ciclopirox 8 % solution topical furosemide 40 mg tablet 40 mg PO DAILY 90 Days Qty: 90 3RF Print Language: Romanian
--- NOTE | 2025-02-01 15:57 | PC.NURSE ---
Patient stating that she is fine and she should not have been sent to the hospital. PA spoke with patients HCP, transport book for 6:30pm via alicia
[2025-02-01 18:26] VITALS: BP 138/70; PULSE 97; RESP 18; TEMP 36.9; O2SAT 99
--- NOTE | 2025-02-01 18:27 | PC.NURSE ---
Spoke with [facility] in [place], aware that patient is returning this evening. report given to ems
[2025-02-02 16:42] LABS: Glucose, Whole Blood 82 mg/dL (60-115)
== END 2025-02-01 18:27 | disposition skilled nursing facility (03) ==
PROVIDERS: Emergency Provider Emergency Medicine
DX: Z71.1 Person with feared health complaint in whom no diagnosis is made (principal); F03.90 Unspecified dementia, unspecified severity, without behavioral disturbance, psychotic disturbance, mood disturbance, and anxiety; I11.0 Hypertensive heart disease with heart failure; I50.32 Chronic diastolic (congestive) heart failure; Z88.1 Allergy status to other antibiotic agents; Z88.5 Allergy status to narcotic agent; Z88.8 Allergy status to other drugs, medicaments and biological substances; Z91.0120 Allergy to eggs, unspecified; Z91.040 Latex allergy status; Z91.018 Allergy to other foods
CPT/HCPCS: 82947; 99282